=== PATIENT | male | born 1940 | race Caucasian/White ===

== ENCOUNTER → 2018-01-14 15:08 | Outpatient (CLI) | payer OTHER, SELFPAY ==
--- NOTE | 2018-01-14 15:18 | VDLE_ITS ---
Reason For Study: Edema RIGHT LEFT GSV is normal. GSV is normal. CFV is compressible, spontaneous, phasic, CFV is compressible, spontaneous, phasic, competent and demonstrates normal competent, and demonstrates normal augmentation. augmentation. FV is compressible, spontaneous, phasic, FV is compressible, spontaneous, phasic, competent and demonstrates normal competent and demonstrates normal augmentation. augmentation. POP V is compressible, spontaneous, phasic, POP V is compressible, spontaneous, phasic, competent and demonstrates normal competent and demonstrates normal augmentation. augmentation. T/P Trunk is compressible. T/P Trunk is compressible. PTV is compressible. PTV is compressible. RT PerV is compressible. LT PerV is compressible. Procedure Lt CFV and Lt Prox FV are partially Exam performed in department. compressible with bright intraluminal echoes A preliminary report was called and/or faxed consistent with chronic DVT to Dr. Jauregui. Lt GastrocV is dilated and non compressible consistent with acute DVT. Interpretation Summary Acute deep vein thrombosis is noted in the left gastrocnemius vein. Chronic venous changes are noted in the left common femoral vein and proximal left femoral vein, which are partially compressible and demonstrate bright intraluminal echogenicity. The remainder of the left lower extremity deep venous system is patent and compressible. Deep veins of the right lower extremity are patent and compressible segmentally. There is no evidence of right lower extremity deep vein thrombosis. Valvular competence appears intact within the proximal deep venous systems bilaterally. The greater saphenous veins appear bilaterally patent and compressible segmentally. Ordering Physician: Juliana Jauregui Referring Physician: Juliana Jauregui Performed By: Codi Turk, RDCS, RVT
== END ==
PROVIDERS: Family Provider Internal Medicine; PCP Internal Medicine; Visit Provider Internal Medicine
DX: R60.0 Localized edema (principal)
CPT/HCPCS: 93970

== ENCOUNTER → 2018-02-25 08:52 | Outpatient (CLI) | payer MEDICARE, SELFPAY ==
--- NOTE | 2018-02-25 09:16 | VDLE_ITS ---
Reason For Study: EDEMA, F/U DVT. RIGHT LEFT GSV is normal. GSV is normal. CFV is compressible, spontaneous, phasic, CFV is compressible, spontaneous, phasic, competent and demonstrates normal competent, and demonstrates normal augmentation. augmentation. FV is compressible, spontaneous, phasic, FV is compressible, spontaneous, phasic, competent and demonstrates normal competent and demonstrates normal augmentation. augmentation. POP V is compressible, spontaneous, phasic, POP V is compressible, spontaneous, phasic, competent and demonstrates normal competent and demonstrates normal augmentation. augmentation. T/P Trunk is compressible. T/P Trunk is compressible. PTV is compressible. PTV is compressible. RT PerV is compressible. LT PerV is compressible. Procedure Lt CFV and Lt Prox FV are partially Exam performed in department. compressible with bright intraluminal echoes The exam was diagnostic. consistent with chronic DVT. A preliminary report was called and/or faxed LT Gastrocnemius V is compressible; DVT to Dr. Jauregui @ [phone] @ 9:55 am. (01/14/18)appears resolved. Interpretation Summary Chronic venous changes are noted in the left common femoral vein and proximal left femoral vein, which are partially compressible and demonstrate bright intraluminal echogenicity. The remainder of the left lower extremity deep venous system is patent and compressible. Deep veins of the right lower extremity are patent and compressible segmentally. There is no evidence of right lower extremity deep vein thrombosis. Valvular competence appears intact within the proximal deep venous systems bilaterally. The greater saphenous veins appear bilaterally patent and compressible segmentally. It appears as though the acute deep vein thrombosis in the left gastrocnemius vein, noted in a prior study on 01/14/2018, has resolved. Ordering Physician: Juliana Jauregui Referring Physician: Juliana Jauregui Performed By: Joceline Bueno, GREER, RVT
== END ==
PROVIDERS: Family Provider Internal Medicine; PCP Internal Medicine; Visit Provider Internal Medicine
DX: R60.0 Localized edema (principal)
CPT/HCPCS: 93970

== ENCOUNTER → 2018-10-28 07:42 | Outpatient (CLI) | payer MEDICARE, SELFPAY ==
--- NOTE | 2018-10-28 07:46 | RDU_ITS ---
Reason For Study: HYPERTENSION Right Renal Artery Left Renal Artery Right renal artery ostium Left renal artery ostium 306.6/81.0 305.9/48.4 RSV/EDV. PSV/EDV. Right renal artery proximal Left renal artery proximal PSV/EDV 346.9/90.3 PSV/EDV. 361.7/102.8 . Right renal artery mid 101.7/28.2 Left renal artery mid 148.5/22.3 PSV/EDV. PSV/EDV . Right renal artery distal Left renal artery distal 133.2/12.6 118.9/24.6 PSV/EDV. PSV/EDV. Right RAR 5.1. Left RAR 5.3. Right Renal Parenchyma Left Renal Parenchyma Upper Pole Medula 44.0/10.2 Left upper pole medulla 24.5/7.3 PSV/EDV. PSV/EDV . Right upper pole medulla EDR .23 . Left upper pole medulla EDR .30 . Right upper pole medulla R.I. .77 . Left upper pole medulla R.I. .70 . Upper [place] Cortx 24.8/10.2 PSV/EDV. UP Cortex 19.6/5.5 PSV/EDV. Right upper pole cortex EDR .41 . Left upper pole cortex EDR .28 . Right upper pole cortex R.I. .59 . Left upper pole cortex R.I. .72 . Right lower Pole medulla 32.1/10.2 Left lower Pole medulla 21.4/7.9 PSV/EDV . PSV/EDV . Right lower pole medulla EDR .32 . Left lower pole medulla EDR .37 . Right lower pole medulla R.I. .68 . Left lower pole medulla R.I. .63 . Lower Pole Cortex 27.6/12.1 Lower Pole Cortx 29.4/9.8 PSV/EDV. PSV/EDV. Left lower pole cortex EDR .33 . Right lower pole cortex EDR .44 . Left lower pole cortex R.I. .67 . Right lower pole cortex R.I. .56 . Left Renal Hilar Right Renal Hilar LT Hilar avg 33.7/10.9 PSV/EDV . Right Hilar avg 48.5/16.7 PSV/EDV. Left hilar acceleration time 60 Right hilar acceleration time 50 m/sec. m/sec. Left Renal Dimensions Right Renal Dimensions Left kidney size 10.3 cm . Right kidney size 11.0 cm . Left cortical dimension 1.1 cm . Right cortical dimension 1.1 cm . Multiple cysts noted largest is 3.5 Multiple cysts noted largest is 2.4 x 3.2 cm. x 3.0 cm. Aorta Proximal abdominal aorta 2.1 X 2.0 cm . Distal abdominal aorta 1.3 X 1.3 cm . Proximal abdominal aorta peak systolic velocity is 68.5 cm/sec . Distal abdominal aorta peak systolic velocity is 86.0 cm/sec . Interpretation Summary Dimensions of the intra-abdominal aorta appear normal, without evidence of aneurysmal dilatation. Ostial and proximal renal artery systolic velocities are elevated bilaterally. Acceleration times are bilaterally normal. Renal-aortic ratios are elevated bilaterally. 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 Cortical dimensions are bilaterally normal. Kidneys appear normal in size bilaterally. Multiple cystic structures are noted in the kidneys bilaterally. Clinical correlation is advised. Ordering Physician: Juliana Jauregui Referring Physician: Juliana Jauregui Performed By: Evita Manuel RVT
== END ==
PROVIDERS: Family Provider Internal Medicine; PCP Internal Medicine; Referring Provider Internal Medicine; Visit Provider Internal Medicine
DX: I10 Essential (primary) hypertension (principal)
CPT/HCPCS: 93975

== ENCOUNTER 2018-10-31 14:54 | Inpatient (IN) | payer MEDICARE, SELFPAY ==
[2018-10-31] VITALS (12 sets, daily range): BP systolic 115–183; BP diastolic 54–83; PULSE 64–87; RESP 14–29; TEMP 36.7–36.9; O2SAT 96–100; BMI 25.3; BMI 25.4; BMI 25.5
--- NOTE | 2018-10-31 15:31 | ED.VISSUMM ---
- ER Visit Summary Date of Service: 10/31/18 Chief Complaint: [Black stool] History of Present Illness: The patient is a 78 M [presents the emergency department complaint of black stool that he noticed today. Patient has history of bleeding ulcers. Patient currently takes full dose aspirin but no other blood thinners. He denies any abdominal pain. He denies any vomiting. Patient states that he did spit up some phlegm earlier today that had some blood tinges in it. He denies any nosebleeds. Patient denies any fever. He denies taking any Pepto-Bismol. He denies recent illness otherwise. He denies cough or chest pain. Patient complains of some fatigue. He denies any exertional dyspnea.] Physical Examination: [HEENT-PERRLA, EOMI. Cranial nerves II through XII grossly intact. TMs clear. Mucous membranes moist. No adenopathy. Cardiovascular-regular rate and rhythm without murmur or ectopy Lungs-clear to auscultation, chest wall stable without crepitus or subcu emphysema Abdomen-normoactive bowel sounds, soft, nontender, no rebound or rigidity, no peritoneal signs. Rectal exam-no masses noted on exam. Stool is dark and greenish-black. Extremities-intact ?4, normal range of motion, normal pulses, atraumatic] Test Results: ['s CBC with differential obtained showed a white count of 8.6, hemoglobin 9.1, hematocrit 20.6, platelets 26.6. Chemistries unremarkable. BUN was 89 and creatinine 2.75. Hemoccult positive] Emergency Department Course and Treatment: [Patient was started on Protonix and was given normal saline. She case was discussed with Dr. Shine also with hospitalist will evaluate patient for admission.] Treatment Plan: [Admit] Disposition: Admit] Impression: [Upper GI bleed] This note was generated with [employer] dictation software. It may contain incorrect words, spelling, and punctuation that were not noted in review of the chart prior to signing ED Disposition - Plan for ED Patient: Referrals: Juliana Jauregui DO [Primary Care Provider] -
[2018-10-31] MEDS: 0.9% Normal Saline 1,000 ML 125 ML IV (15:34)
[2018-10-31 16:24] LABS: AST(SGOT) 9 U/L (15-37); Alanine Aminotransfer ALT/SGPT 13 U/L (16-61); Albumin, Serum 3.1 g/dL (3.2-5.0); Alkaline Phosphatase 38 U/L (45-117); Anion Gap 6 (5-15); BUN 89 mg/dL (7-18); BUN/Creat Ratio 32.4 RATIO (10-20); Calcium,Total 8.4 mg/dL (8.5-10.1); Chloride 111 mmol/L (98-107); Creatinine, Serum 2.75 mg/dL (0.70-1.30); EST Glomerular Filtration Rate 24 mL/min (>60); Est Glom Filt Rate - Afr Amer 29 mL/min (>60); Estimated Creatinine Clearance 23.52 ml/min; Globulin 3.2 g/dL (2.2-4.2); Glucose 101 mg/dL (74-106); Potassium 4.6 mmol/L (3.5-5.1); Protein, Total 6.3 g/dL (6.4-8.2); Sodium Level 141 mmol/L (136-145)
[2018-10-31 16:26] LABS: Absolute Lymphocyte Count 1.14 X10^3/ul (0.83-4.51); Absolute Neutrophil Count 6.5 X10^3/uL (2.0-7.7); Basophil# 0.07 X10^3/uL; Basophil% 0.8 % (0-1); Eosinophil# 0.13 X10^3/uL; Eosinophils% 1.5 % (0-5); Hematocrit 28.6 % (40-54); Hemoglobin 9.1 g/dl (13.0-16.5); Lymphocyte # 1.14 X10^3/ul (4.0); Lymphocyte % 13.3 % (19-41); Mean Corp Hgb Conc 31.8 g/gl (32-36); Mean Corpuscular Hgb 26.5 pg (27.0-32.0); Mean Corpuscular Volume 83.4 fL (80-94); Mean Platelet Vol. 10.4 fl (6.2-12.0); Monocyte# 0.69 X10^3/uL; Monocyte% 8.1 % (0-10); Neutrophil # 6.49 X10^3/uL (2.7-7.7); Neutrophil % 75.9 % (47-70); POSITIVE COUNT NO; POSITIVE DIFFERENTIAL NO; POSITIVE MORPHOLOGY NO; Platelet Count 266 K/mm3 (150-450); RBC Distribution Width CV 17.2 % (11.6-14.6); RBC Distribution Width SD 52.3 fl (35.1-43.9); Red Blood Count 3.43 M/mm3 (4.6-6.2); White Blood Count 8.6 K/mm3 (4.4-11.0)
--- NOTE | 2018-10-31 16:59 | NURSING ---
PCU GI BLEED BETH
--- NOTE | 2018-10-31 17:07 | PCM.HP.STD ---
<Kojo Marr - Last Filed: 10/31/18 17:07> Problem List (1) Upper GI bleed Status: Acute (2) Acute blood loss anemia Status: Acute (3) DVT (deep venous thrombosis) Status: Chronic (4) Presence of IVC filter Status: Chronic (5) CKD (chronic kidney disease), stage IV Status: Chronic (6) HTN (hypertension) Status: Chronic History of Present Illness Date of Admission: 10/31/18 Chief Complaint: Black tarry stools The patient is a 78 year old M with pmhx as above also with a hx of esophageal bleeding, bleeding ulcers unclear location, who presents to the ER with c/o new onset black tarry stools. He has had this in the past and required esophageal surgery - he was seen by Gastroenterology Dr. Rashid in [place] and was apparantly told he had severe disease, the pt is not sure exactly what. Last surgery was in 2014. He denies varices or liver disease. This time he started feeling nauseous and weak last night and could not sleep. He got up in the AM and had a bowel movement with a large quantity of blood that was black and tarry. He has not had recent blood in his stools prior to this recently. He reports feeling weak. No dizziness/LH, no SOB. He came to the ER and was found to be anemic with Hgb 9.1 with + Hemoccult. Dr. Aguilar was called and will see the pt for presumed upper GI bleed. He does take full strength aspirin. [] Past Medical History Past Medical History (Chronic Problems): Chronic Problems DVT (deep venous thrombosis) (Chronic) Presence of IVC filter (Chronic) CKD (chronic kidney disease), stage IV (Chronic) HTN (hypertension) (Chronic) Allergies No Known Allergies Allergy (Verified 10/31/18 14:55) Surgical History: total hip arthroplasty - BL, - - esophageal repair unclear specifics, IVC filter placement, Smoking Status: Former smoker Review of Systems Constitutional: Reports: Malaise, Weakness. Denies: Chills, Fever, Weight Change HEENT: Denies: Head Aches, Sinus Congestion, Sinus Drainage Cardiovascular: Denies: Chest Pain, Palpitations Respiratory: Denies: Cough, Shortness of breath at rest, Sputum production Gastrointestinal: Reports: Nausea, - - black tarry stools. Denies: Abdominal Pain, Vomiting Genitourinary: Denies: Dysuria Musculoskeletal: Denies: Joint Pain, Joint Tenderness Skin: Denies: Rash, Wounds Neurological: Denies: Numbness, Tingling, Focal weakness Psychiatric: Denies: Anxiety, Depression, Homicidal Ideations, Suicidal Ideations Hematologic/ Lymphatic: Denies: Easy Bruising, Easy Bleeding VTE Information - Inpt Only VTE Present on Admission: No VTE Mechan Device Prophylaxis: SCD's VTE Pharm Prophylaxis ordered?: No Reason prophylaxis not ordered:: Medical Contraindication Patient Problems: Active and Suspected Problems Upper GI bleed (Acute) Acute blood loss anemia (Acute) - Physical Exam General: Alert, Oriented x3, Cooperative HEENT: Atraumatic, PERRLA, EOMI, Normocephalic Neck: Supple, No JVD, Negative Carotid Bruits Lungs: Clear to auscultation, Normal air movement Cardiovascular: Regular rate, No murmurs Abdomen: Bowel Sounds Present, Soft, Non Tender Extremities: No edema, Capillary Refill Less than 3 Seconds Skin: No rashes, No breakdown Musculoskeletal: No Tenderness to Palpation of Joints or Extremities Neurological: Cranial nerves II-XII grossly intact Psych/Mental Status: Normal Affect, Appropriate Vital Signs Temp Pulse Resp BP Pulse Ox 98.1 F 66 17 145/77 H 97 10/31/18 14:58 10/31/18 14:58 10/31/18 14:58 10/31/18 14:58 10/31/18 14:58 Oxygen Delivery Method Room Air Weight: 187 lb Body Mass Index (BMI) 25.3 Microbiology Past 72 Hours 10/31/18 15:25 Stool Occult Blood (ROBBIN) - Final Stool Occult Blood Positive Laboratory Tests Past 24 Hrs 10/31/18 10/31/18 10/31/18 15:20 15:20 15:20 WBC 8.6 RBC 3.43 L Hgb 9.1 L Hct 28.6 L MCV 83.4 MCH 26.5 L MCHC 31.8 L RDW 17.2 H RDW Differential 52.3 H Plt Count 266 MPV 10.4 Immature Gran % (Auto) 0.400 Neut % (Auto) 75.9 H Lymph % (Auto) 13.3 L [place] % (Auto) 8.1 Eos % (Auto) 1.5 Baso % (Auto) 0.8 Absolute Neuts (auto) 6.5 Absolute Lymphs (auto) 1.14 Total Counted Not Reportable Sodium 141 Potassium 4.6 Chloride 111 H Carbon Dioxide 24.0 Anion Gap 6 BUN 89 H Creatinine 2.75 H Estim Creat Clear Calc 23.52 Est GFR (MDRD) Af Amer 29 L Est GFR (MDRD) Non-Af 24 L BUN/Creatinine Ratio 32.4 H Glucose 101 Calcium 8.4 L Total Bilirubin 0.30 AST 9 L ALT 13 L Alkaline Phosphatase 38 L Total Protein 6.3 L Albumin 3.1 L Globulin 3.2 Albumin/Globulin Ratio 1.0 Blood Type Pending Antibody Screen Pending Assessment/Plan All Active Problems Upper GI bleed (Acute) Acute blood loss anemia (Acute) 1. Acute blood loss anemia - presumed upper GI bleeding. Hx esophageal bleeding requiring surgery [address] Rashid in [place] (GI) - on full strength aspirin daily. Denies liver dz/varices. Has prior bleeding ulcers. Hgb 9.1. Black tarry stool this AM. NPO now. T/S. Serial H/H q6h. Protonix drip. LFTs normal. Obtain records from Dr. Jauregui/Rachid. -baseline Hgb unknown 2. Hx DVTs - IVC filter in place 3. CKDIV - Pt of Dr. Castillo. 4. HTN - hold orals 5. GERD - on ppi DVT ppx: SCDs This patient was seen by Kojo Marr PA-C under the supervision of Dr. Holm <Kings Holm - Last Filed: 10/31/18 17:55> Problem List (1) Upper GI bleed Status: Acute History of Present Illness The patient is a 78 year old M resents with 3 bouts of black tarry stools. The first 1 was larger than subsequent episodes. Patient had similar episode in 2015 that was attributed to an ulcer that may have been in his esophagus but the patient and disagree on its whereabouts. Patient received IV pantoprazole in the emergency room. Patient was seen by general surgery who is planning to do an EGD in the emergency room. [] Past Medical History Medical History: Medical History (Last Updated 10/31/18 @ 17:50 by Kings Holm DO) AAA (abdominal aortic aneurysm) I71.4 Orthostatic hypotension I95.1 PUD (peptic ulcer disease) K27.9 VTE (venous thromboembolism) I82.90 CKD (chronic kidney disease), stage IV N18.4 Allergies No Known Allergies Allergy (Verified 10/31/18 14:55) Surgical History: total hip arthroplasty, - Lives: Spouse/ Significant Other Smoking Status: Former smoker Tobacco Use: Non-smoker Alcohol: Rare Drugs: None - *Family History Maternal History Items: No pertinent history, - - no CAD Review of Systems Constitutional: Reports: Malaise, Weakness. Denies: Chills, Fever, Weight Change HEENT: Denies: Head Aches, Sinus Congestion, Sinus Drainage Cardiovascular: Denies: Chest Pain, Palpitations Respiratory: Denies: Cough, Shortness of breath at rest, Sputum production Gastrointestinal: Reports: Nausea, -. Denies: Abdominal Pain Genitourinary: Denies: Dysuria Musculoskeletal: Denies: Joint Pain, Joint Tenderness Skin: Denies: Rash, Wounds Neurological: Denies: Focal weakness, Numbness, Tingling Psychiatric: Denies: Anxiety, Depression, Homicidal Ideations, Suicidal Ideations Hematologic/ Lymphatic: Denies: Easy Bruising, Easy Bleeding VTE Information - Inpt Only VTE Present on Admission: No VTE Mechan Device Prophylaxis: SCD's VTE Pharm Prophylaxis ordered?: No Reason prophylaxis not ordered:: Medical Contraindication - Physical Exam General: Alert, Cooperative HEENT: Atraumatic, Normocephalic Neck: No Nodes, Thyroid Normal Size and Texture Lungs: Clear to auscultation, Normal air movement, No rhonchi, No wheeze Cardiovascular: Regular rate, Regular Rhythm, Normal S1, Normal S2, No murmurs Abdomen: Bowel Sounds Present, Soft, Non Tender, Non-Distended, No Hepato-splenomegaly Extremities: No edema, No Calf Tenderness Skin: No rashes, No breakdown Musculoskeletal: No Tenderness to Palpation of Joints or Extremities, No Muscle Wasting Neurological: Deep Tendon Reflexes 2+/4 and Symmetrical, - - no clonus Psych/Mental Status: Normal Affect, Appropriate Vital Signs Temp Pulse Resp BP Pulse Ox 36.7 C 66 17 145/77 H 97 10/31/18 14:58 10/31/18 14:58 10/31/18 14:58 10/31/18 14:58 10/31/18 14:58 Oxygen Delivery Method Room Air Weight: 84.822 kg Body Mass Index (BMI) 25.3 Microbiology Past 72 Hours 10/31/18 15:25 Stool Occult Blood (ROBBIN) - Final Stool Occult Blood Positive Laboratory Tests Past 24 Hrs 10/31/18 10/31/18 10/31/18 15:20 15:20 15:20 WBC 8.6 RBC 3.43 L Hgb 9.1 L Hct 28.6 L MCV 83.4 MCH 26.5 L MCHC 31.8 L RDW 17.2 H RDW Differential 52.3 H Plt Count 266 MPV 10.4 Immature Gran % (Auto) 0.400 Neut % (Auto) 75.9 H Lymph % (Auto) 13.3 L [place] % (Auto) 8.1 Eos % (Auto) 1.5 Baso % (Auto) 0.8 Absolute Neuts (auto) 6.5 Absolute Lymphs (auto) 1.14 Total Counted Not Reportable Sodium 141 Potassium 4.6 Chloride 111 H Carbon Dioxide 24.0 Anion Gap 6 BUN 89 H Creatinine 2.75 H Estim Creat Clear Calc 23.52 Est GFR (MDRD) Af Amer 29 L Est GFR (MDRD) Non-Af 24 L BUN/Creatinine Ratio 32.4 H Glucose 101 Lactic Acid Calcium 8.4 L Total Bilirubin 0.30 AST 9 L ALT 13 L Alkaline Phosphatase 38 L Total Protein 6.3 L Albumin 3.1 L Globulin 3.2 Albumin/Globulin Ratio 1.0 Blood Type O POSITIVE Antibody Screen NEGATIVE 10/31/18 17:18 WBC RBC Hgb Hct MCV MCH MCHC RDW RDW Differential Plt Count MPV Immature Gran % (Auto) Neut % (Auto) Lymph % (Auto) [place] % (Auto) Eos % (Auto) Baso % (Auto) Absolute Neuts (auto) Absolute Lymphs (auto) Total Counted Sodium Potassium Chloride Carbon Dioxide Anion Gap BUN Creatinine Estim Creat Clear Calc Est GFR (MDRD) Af Amer Est GFR (MDRD) Non-Af BUN/Creatinine Ratio Glucose Lactic Acid Pending Calcium Total Bilirubin AST ALT Alkaline Phosphatase Total Protein Albumin Globulin Albumin/Globulin Ratio Blood Type Antibody Screen Assessment/Plan Patient seen and examined independently. Data reviewed. I agree with the above note by the physician client services assistant. 1. Upper GI bleed: Suspect PUD given patient's history. Patient received 8 mg of IV pantoprazole in the emergency room. We will continue with 40 mg IV for now. EGD to be performed in the emergency room and then depending on the appearance of what may be bleeding, if it is noted in the EGD, patient will either be admitted to the hospital or transfer to a tertiary facility. Patient and his are preferring to stay in the [facility] system preferably [place]. I explained to him that may not be able to be transferred to [place] if that is necessary but would recommend either [facility] or [facility] for the network even though [facility] is not directly ability with . 2. Anemia: Unknown baseline. Type and crossed in the emergency room. No indication for transfusion at this time. Recheck H&H 6 hours after the initial check and then again in the morning. 3. Chronic kidney disease stage IV: Patient may be at his baseline. Avoid nephrotoxic agents. Monitor his creatinine. 4. History of VT E: Patient was on aspirin for this apparently. Patient does have an IVC filter that was never removed. Aspirin on hold given the upper GI bleed 5. VT E prophylaxis: High risk given patient's past history. Chemical prophylaxis contraindicated given the GI bleed and anemia. Mechanical prophylaxis with SCDs. Code Visit Inpatient E&M: 54126 Init Hosp L3
--- NOTE | 2018-10-31 17:44 | PCM.CONS.GEN ---
Problem List (1) Upper GI bleed Status: Acute Reason for Consult Date of Consultation: 10/31/18 Reason for Consultation: Upper GI bleed melena History of Present Illness: The patient is a 78 year old M presented with melena that started today. The patient has no abdominal pain. No nausea or vomiting. Patient reports that he had black tarry stools starting today. Patient reports that he has been eating normally. He says that he has had ulcers cauterized in his esophagus in the past as well as bleeding ulcers in the past. He is on aspirin for blood clots in his legs. He also has a history of open AAA repair. Past Medical History Past Medical History (Chronic Problems): Chronic Problems DVT (deep venous thrombosis) (Chronic) Presence of IVC filter (Chronic) CKD (chronic kidney disease), stage IV (Chronic) HTN (hypertension) (Chronic) Allergies No Known Allergies Allergy (Verified 10/31/18 14:55) Home Medications: Ambulatory Orders Medication Instructions Recorded Amlodipine Besylate 5 mg PO DAILY 10/31/18 Aspirin E.C. [Ecotrin] 325 mg PO DAILY@0800 10/31/18 Losartan/Hydrochlorothiazide 1 tab PO BID 10/31/18 [Losartan-Hctz 50-12.5 mg Tab] Metoprolol Succinate [Toprol Xl] 50 mg PO DAILY 10/31/18 Multivit-Min/FA/Lycopen/Lutein 1 tab PO DAILY 10/31/18 [Centrum Silver Men Tablet] Spiro-3S/Dha/Epa/Fish Oil/D3 1 each PO DAILY 10/31/18 [Spiro-3 + D Softgel] Surgical History: total hip arthroplasty - BL, - - esophageal repair unclear specifics, IVC filter placement, Smoking Status: Former smoker - *Family History Maternal History Items: No pertinent history Review of Systems Constitutional: Denies: Anorexia, Fever HEENT: Denies: Difficulty Swallowing Cardiovascular: Denies: Chest Pain Respiratory: Denies: Cough, Shortness of Breath Gastrointestinal: Reports: Melena. Denies: Abdominal Pain, Hematemesis, Hematochezia, Nausea, Vomiting Genitourinary: Denies: Dysuria Musculoskeletal: Denies: Joint Tenderness Skin: Denies: Dryness Neurological: Denies: Focal weakness Patient Problems: Active and Suspected Problems Upper GI bleed (Acute) Acute blood loss anemia (Acute) - Physical Exam General: Alert, Oriented x3, Cooperative HEENT: Atraumatic Neck: No JVD Lungs: Normal air movement Cardiovascular: Regular rate, Regular Rhythm Abdomen: Soft, Non Tender, Non-Distended Extremities: No edema Skin: No rashes Musculoskeletal: No Muscle Wasting Vital Signs Temp Pulse Resp BP Pulse Ox 98.1 F 66 17 145/77 H 97 10/31/18 14:58 10/31/18 14:58 10/31/18 14:58 10/31/18 14:58 10/31/18 14:58 Oxygen Delivery Method Room Air Weight: 187 lb Body Mass Index (BMI) 25.3 Microbiology Past 72 Hours 10/31/18 15:25 Stool Occult Blood (ROBBIN) - Final Stool Occult Blood Positive Laboratory Tests Past 24 Hrs 10/31/18 10/31/18 10/31/18 15:20 15:20 15:20 WBC 8.6 RBC 3.43 L Hgb 9.1 L Hct 28.6 L MCV 83.4 MCH 26.5 L MCHC 31.8 L RDW 17.2 H RDW Differential 52.3 H Plt Count 266 MPV 10.4 Immature Gran % (Auto) 0.400 Neut % (Auto) 75.9 H Lymph % (Auto) 13.3 L [place] % (Auto) 8.1 Eos % (Auto) 1.5 Baso % (Auto) 0.8 Absolute Neuts (auto) 6.5 Absolute Lymphs (auto) 1.14 Total Counted Not Reportable Sodium 141 Potassium 4.6 Chloride 111 H Carbon Dioxide 24.0 Anion Gap 6 BUN 89 H Creatinine 2.75 H Estim Creat Clear Calc 23.52 Est GFR (MDRD) Af Amer 29 L Est GFR (MDRD) Non-Af 24 L BUN/Creatinine Ratio 32.4 H Glucose 101 Lactic Acid Calcium 8.4 L Total Bilirubin 0.30 AST 9 L ALT 13 L Alkaline Phosphatase 38 L Total Protein 6.3 L Albumin 3.1 L Globulin 3.2 Albumin/Globulin Ratio 1.0 Blood Type O POSITIVE Antibody Screen NEGATIVE 10/31/18 17:18 WBC RBC Hgb Hct MCV MCH MCHC RDW RDW Differential Plt Count MPV Immature Gran % (Auto) Neut % (Auto) Lymph % (Auto) [place] % (Auto) Eos % (Auto) Baso % (Auto) Absolute Neuts (auto) Absolute Lymphs (auto) Total Counted Sodium Potassium Chloride Carbon Dioxide Anion Gap BUN Creatinine Estim Creat Clear Calc Est GFR (MDRD) Af Amer Est GFR (MDRD) Non-Af BUN/Creatinine Ratio Glucose Lactic Acid Pending Calcium Total Bilirubin AST ALT Alkaline Phosphatase Total Protein Albumin Globulin Albumin/Globulin Ratio Blood Type Antibody Screen Assessment/Plan All Active Problems Upper GI bleed (Acute) Acute blood loss anemia (Acute) 78-year-old male with melena 1. Patient is on full dose aspirin and has history of upper GI bleed in the past. He has a Elayne filter as well as history of open AAA repair. He is not on a PPI. I would like to scope him in the emergency room to make sure this is something that can be handled here at this hospital. I expect that he may be transferred if there is a bleeding which is uncontrollable and requires IR or GI specialties. 2. I explained endoscopy in detail to the patient. I explained the risks including but not limited to stroke or heart attack with anesthesia, perforation of the GI tract, bleeding, infection. I explained that any of these could necessitate further emergency surgery. The patient understands and all questions were answered sufficiently. The patient wishes to proceed with procedure. Dudley Aguilar MD Pager: [facility] [address] [place] [address], [address] [place] [address] Office:
--- NOTE | 2018-10-31 17:48 | CON.PCM_ITS ---
Problem List (1) Upper GI bleed Status: Acute Reason for Consult Date of Consultation: 10/31/18 Reason for Consultation: Upper GI bleed melena History of Present Illness: The patient is a 78 year old M presented with melena that started today. The patient has no abdominal pain. No nausea or vomiting. Patient reports that he had black tarry stools starting today. Patient reports that he has been eating normally. He says that he has had ulcers cauterized in his esophagus in the past as well as bleeding ulcers in the past. He is on aspirin for blood clots in his legs. He also has a history of open AAA repair. Past Medical History Past Medical History (Chronic Problems): Chronic Problems DVT (deep venous thrombosis) (Chronic) Presence of IVC filter (Chronic) CKD (chronic kidney disease), stage IV (Chronic) HTN (hypertension) (Chronic) Allergies No Known Allergies Allergy (Verified 10/31/18 14:55) Home Medications: Ambulatory Orders Medication Instructions Recorded Amlodipine Besylate 5 mg PO DAILY 10/31/18 Aspirin E.C. [Ecotrin] 325 mg PO DAILY@0800 10/31/18 Losartan/Hydrochlorothiazide 1 tab PO BID 10/31/18 [Losartan-Hctz 50-12.5 mg Tab] Metoprolol Succinate [Toprol Xl] 50 mg PO DAILY 10/31/18 Multivit-Min/FA/Lycopen/Lutein 1 tab PO DAILY 10/31/18 [Centrum Silver Men Tablet] Berkley-3S/Dha/Epa/Fish Oil/D3 1 each PO DAILY 10/31/18 [[place]erkley-3 + D Softgel] Surgical History: total hip arthroplasty - BL, - - esophageal repair unclear specifics, IVC filter placement, Smoking Status: Former smoker - *Family History Maternal History Items: No pertinent history Review of Systems Constitutional: Denies: Anorexia, Fever HEENT: Denies: Difficulty Swallowing Cardiovascular: Denies: Chest Pain Respiratory: Denies: Cough, Shortness of Breath Gastrointestinal: Reports: Melena. Denies: Abdominal Pain, Hematemesis, Hematochezia, Nausea, Vomiting Genitourinary: Denies: Dysuria Musculoskeletal: Denies: Joint Tenderness Skin: Denies: Dryness Neurological: Denies: Focal weakness Patient Problems: Active and Suspected Problems Upper GI bleed (Acute) Acute blood loss anemia (Acute) - Physical Exam General: Alert, Oriented x3, Cooperative HEENT: Atraumatic Neck: No JVD Lungs: Normal air movement Cardiovascular: Regular rate, Regular Rhythm Abdomen: Soft, Non Tender, Non-Distended Extremities: No edema Skin: No rashes Musculoskeletal: No Muscle Wasting Vital Signs Temp Pulse Resp BP Pulse Ox 98.1 F 66 17 145/77 H 97 10/31/18 14:58 10/31/18 14:58 10/31/18 14:58 10/31/18 14:58 10/31/18 14:58 Oxygen Delivery Method Room Air Weight: 187 lb Body Mass Index (BMI) 25.3 Microbiology Past 72 Hours 10/31/18 15:25 Stool Occult Blood (ROBBIN) - Final Stool Occult Blood Positive Laboratory Tests Past 24 Hrs 10/31/18 10/31/18 10/31/18 15:20 15:20 15:20 WBC 8.6 RBC 3.43 L Hgb 9.1 L Hct 28.6 L MCV 83.4 MCH 26.5 L MCHC 31.8 L RDW 17.2 H RDW Differential 52.3 H Plt Count 266 MPV 10.4 Immature Gran % (Auto) 0.400 Neut % (Auto) 75.9 H Lymph % (Auto) 13.3 L [place] % (Auto) 8.1 Eos % (Auto) 1.5 Baso % (Auto) 0.8 Absolute Neuts (auto) 6.5 Absolute Lymphs (auto) 1.14 Total Counted Not Reportable Sodium 141 Potassium 4.6 Chloride 111 H Carbon Dioxide 24.0 Anion Gap 6 BUN 89 H Creatinine 2.75 H Estim Creat Clear Calc 23.52 Est GFR (MDRD) Af Amer 29 L Est GFR (MDRD) Non-Af 24 L BUN/Creatinine Ratio 32.4 H Glucose 101 Lactic Acid Calcium 8.4 L Total Bilirubin 0.30 AST 9 L ALT 13 L Alkaline Phosphatase 38 L Total Protein 6.3 L Albumin 3.1 L Globulin 3.2 Albumin/Globulin Ratio 1.0 Blood Type O POSITIVE Antibody Screen NEGATIVE 10/31/18 17:18 WBC RBC Hgb Hct MCV MCH MCHC RDW RDW Differential Plt Count MPV Immature Gran % (Auto) Neut % (Auto) Lymph % (Auto) [place] % (Auto) Eos % (Auto) Baso % (Auto) Absolute Neuts (auto) Absolute Lymphs (auto) Total Counted Sodium Potassium Chloride Carbon Dioxide Anion Gap BUN Creatinine Estim Creat Clear Calc Est GFR (MDRD) Af Amer Est GFR (MDRD) Non-Af BUN/Creatinine Ratio Glucose Lactic Acid Pending Calcium Total Bilirubin AST ALT Alkaline Phosphatase Total Protein Albumin Globulin Albumin/Globulin Ratio Blood Type Antibody Screen Assessment/Plan All Active Problems Upper GI bleed (Acute) Acute blood loss anemia (Acute) 78-year-old male with melena 1. Patient is on full dose aspirin and has history of upper GI bleed in the past. He has a Elayne filter as well as history of open AAA repair. He is not on a PPI. I would like to scope him in the emergency room to make sure this is something that can be handled here at this hospital. I expect that he may be transferred if there is a bleeding which is uncontrollable and requires IR or GI specialties. 2. I explained endoscopy in detail to the patient. I explained the risks including but not limited to stroke or heart attack with anesthesia, perforation of the GI tract, bleeding, infection. I explained that any of these could necessitate further emergency surgery. The patient understands and all questions were answered sufficiently. The patient wishes to proceed with procedure. Dudley Aguilar MD Pager: [facility] [address] [place] [address], [address] [place] [address] Office:
--- NOTE | 2018-10-31 17:58 | NURSING ---
ENDO WILL BE UP SOON
[2018-10-31 18:02] LABS: Lactic Acid 0.9 mmol/L (0.4-2.0)
[2018-10-31] MEDS: Propofol 200 MG/20 ML Vial IV BOLUS (18:29)
--- NOTE | 2018-10-31 19:05 | OP.ENDO_ITS ---
10/31/2018 Juliana Jauregui [address] [place] [address] Re : Upper GI endoscopy procedure for Juan Luis Pierson Dear Dr. Jauregui This procedure was performed on Wednesday, October 31, 2018. My impressions and recommendations are as follows: Impressions : - Non-bleeding gastric ulcers with no stigmata of bleeding. - No specimens collected. Recommendations : - Observe patient in same day observation unit. - Resume previous diet. - Continue present medications. My findings are described in the full procedure note, which is enclosed. If I can be of further assistance, please feel free to contact me at Doctor phone number(s): , Work: . Sincerely, Dudley Aguilar MD 10/31/2018 7:04:46 PM This report has been signed electronically.
--- NOTE | 2018-10-31 19:06 | PCM.PN.BLA ---
Progress Note I performed an EGD on the patient. He had no blood clots or stigmata of bleeding in the esophagus, stomach, duodenum. Patient did have 2 shallow ulcers in the antrum of the stomach which were nonbleeding and there were no clots. Recommend the patient have regular diet and recheck hemoglobin and start the patient on a PPI and Carafate. Dudley Aguilar MD Pager: [facility] [address] [place] [address] [address] [place] [address] Office:
[2018-10-31] MEDS: Sucralfate 1 GM Tablet PO (21:30)
[2018-10-31 21:41] LABS: Absolute Lymphocyte Count 1.35 X10^3/ul (0.83-4.51); Absolute Neutrophil Count 5.6 X10^3/uL (2.0-7.7); Basophil# 0.06 X10^3/uL; Basophil% 0.8 % (0-1); Eosinophils% 1.3 % (0-5); Hematocrit 25.5 % (40-54); Hemoglobin 8.2 g/dl (13.0-16.5); Lymphocyte # 1.35 X10^3/ul (4.0); Lymphocyte % 17.4 % (19-41); Mean Corp Hgb Conc 32.2 g/gl (32-36); Mean Corpuscular Hgb 26.6 pg (27.0-32.0); Mean Corpuscular Volume 82.8 fL (80-94); Mean Platelet Vol. 10.2 fl (6.2-12.0); Monocyte# 0.65 X10^3/uL; Monocyte% 8.4 % (0-10); Neutrophil # 5.61 X10^3/uL (2.7-7.7); Platelet Count 210 K/mm3 (150-450); RBC Distribution Width CV 17.2 % (11.6-14.6); RBC Distribution Width SD 52.5 fl (35.1-43.9); Red Blood Count 3.08 M/mm3 (4.6-6.2); White Blood Count 7.8 K/mm3 (4.4-11.0)
[2018-10-31 21:43] LABS: POSITIVE COUNT NO; POSITIVE DIFFERENTIAL NO; POSITIVE MORPHOLOGY NO
[2018-11-01] VITALS (20 sets, daily range): BP systolic 132–159; BP diastolic 59–91; PULSE 63–83; RESP 14–18; TEMP 36.6–37; O2SAT 95–98
[2018-11-01] MEDS: 0.9% Normal Saline 1,000 ML 125 ML IV ×3 (02:10→21:48)
[2018-11-01] MEDS: Sucralfate 1 GM Tablet PO (06:08)
[2018-11-01 06:09] LABS: Absolute Lymphocyte Count 1.33 X10^3/ul (0.83-4.51); Absolute Neutrophil Count 3.9 X10^3/uL (2.0-7.7); Basophil# 0.05 X10^3/uL; Basophil% 0.8 % (0-1); Eosinophil# 0.31 X10^3/uL; Hematocrit 25.3 % (40-54); Hemoglobin 7.9 g/dl (13.0-16.5); Lymphocyte # 1.33 X10^3/ul (4.0); Lymphocyte % 21.6 % (19-41); Mean Corp Hgb Conc 31.2 g/gl (32-36); Mean Corpuscular Hgb 26.3 pg (27.0-32.0); Mean Corpuscular Volume 84.3 fL (80-94); Mean Platelet Vol. 10.7 fl (6.2-12.0); Monocyte# 0.57 X10^3/uL; Monocyte% 9.3 % (0-10); Neutrophil # 3.88 X10^3/uL (2.7-7.7); Platelet Count 198 K/mm3 (150-450); RBC Distribution Width CV 17.2 % (11.6-14.6); RBC Distribution Width SD 50.3 fl (35.1-43.9); White Blood Count 6.2 K/mm3 (4.4-11.0)
[2018-11-01 06:19] LABS: BUN 73 mg/dL (7-18); Creatinine, Serum 2.46 mg/dL (0.70-1.30); Estimated Creatinine Clearance 26.29 ml/min; Glucose 90 mg/dL (74-106)
[2018-11-01 06:20] LABS: Anion Gap 7 (5-15); BUN/Creat Ratio 29.7 RATIO (10-20); Calcium,Total 7.9 mg/dL (8.5-10.1); Chloride 120 mmol/L (98-107); EST Glomerular Filtration Rate 27 mL/min (>60); Est Glom Filt Rate - Afr Amer 33 mL/min (>60); POSITIVE COUNT NO; POSITIVE DIFFERENTIAL NO; POSITIVE MORPHOLOGY NO; Potassium 4.1 mmol/L (3.5-5.1); Sodium Level 146 mmol/L (136-145)
--- NOTE | 2018-11-01 07:52 | PCM.PN.SRG ---
Patient Problems: Active and Suspected Problems (Last Updated 10/31/18 @ 17:50 by Kings Holm DO) Upper GI bleed (Acute) Acute blood loss anemia (Acute) Subjective: Patient reports no more bowel movements overnight. He has no abdominal pain. No nausea or vomiting. - Physical Exam General: Alert, Oriented x3, No apparent distress Neck: No JVD Lungs: Clear to auscultation, Normal air movement Cardiovascular: Regular rate, Regular Rhythm Abdomen: Soft, Non Tender, Non-Distended Vital Signs Temp Pulse Resp BP Pulse Ox 97.9 F 73 16 146/68 H 98 11/01/18 06:06 11/01/18 06:06 11/01/18 06:06 11/01/18 06:06 11/01/18 06:06 Oxygen Flow Rate (L/min) [3] 4 Oxygen Flow Rate (L/min) [2] 4 Oxygen Flow Rate (L/min) [1 ( 4 Initial Baseline)] Oxygen Flow Rate (L/min) 2 Oxygen Delivery Method [4] Nasal Cannula Oxygen Delivery Method [3] Nasal Cannula Oxygen Delivery Method [2] Nasal Cannula Oxygen Delivery Method [1 ( Nasal Cannula Initial Baseline)] Oxygen Delivery Method Room Air Weight: 188 lb 7.924 oz Body Mass Index (BMI) 25.5 Intake and Output for Last 24 Hours 10/30/18 10/31/18 11/01/18 23:59 23:59 23:59 Intake Total 750 / 750 984 / 984 Output Total 475 / 475 775 / 775 Balance 275 / 275 209 / 209 Microbiology Past 72 Hours 10/31/18 15:25 Stool Occult Blood (ROBBIN) - Final Stool Occult Blood Positive Laboratory Tests Past 24 Hrs 10/31/18 10/31/18 10/31/18 15:20 15:20 15:20 WBC 8.6 RBC 3.43 L Hgb 9.1 L Hct 28.6 L MCV 83.4 MCH 26.5 L MCHC 31.8 L RDW 17.2 H RDW Differential 52.3 H Plt Count 266 MPV 10.4 Immature Gran % (Auto) 0.400 Neut % (Auto) 75.9 H Lymph % (Auto) 13.3 L [place] % (Auto) 8.1 Eos % (Auto) 1.5 Baso % (Auto) 0.8 Absolute Neuts (auto) 6.5 Absolute Lymphs (auto) 1.14 Total Counted Not Reportable Sodium 141 Potassium 4.6 Chloride 111 H Carbon Dioxide 24.0 Anion Gap 6 BUN 89 H Creatinine 2.75 H Estim Creat Clear Calc 23.52 Est GFR (MDRD) Af Amer 29 L Est GFR (MDRD) Non-Af 24 L BUN/Creatinine Ratio 32.4 H Glucose 101 Lactic Acid Calcium 8.4 L Magnesium Total Bilirubin 0.30 AST 9 L ALT 13 L Alkaline Phosphatase 38 L Total Protein 6.3 L Albumin 3.1 L Globulin 3.2 Albumin/Globulin Ratio 1.0 Blood Type O POSITIVE Antibody Screen NEGATIVE 10/31/18 10/31/18 10/31/18 15:20 17:18 21:28 WBC 7.8 RBC 3.08 L Hgb 8.2 L Hct 25.5 L MCV 82.8 MCH 26.6 L MCHC 32.2 RDW 17.2 H RDW Differential 52.5 H Plt Count 210 MPV 10.2 Immature Gran % (Auto) 0.100 Neut % (Auto) 72.0 H Lymph % (Auto) 17.4 L [place] % (Auto) 8.4 Eos % (Auto) 1.3 Baso % (Auto) 0.8 Absolute Neuts (auto) 5.6 Absolute Lymphs (auto) 1.35 Total Counted Not Reportable Sodium Potassium Chloride Carbon Dioxide Anion Gap BUN Creatinine Estim Creat Clear Calc Est GFR (MDRD) Af Amer Est GFR (MDRD) Non-Af BUN/Creatinine Ratio Glucose Lactic Acid 0.9 Calcium Magnesium 2.0 Total Bilirubin AST ALT Alkaline Phosphatase Total Protein Albumin Globulin Albumin/Globulin Ratio Blood Type Antibody Screen 11/01/18 11/01/18 05:43 05:43 WBC 6.2 RBC 3.00 L Hgb 7.9 L Hct 25.3 L MCV 84.3 MCH 26.3 L MCHC 31.2 L RDW 17.2 H RDW Differential 50.3 H Plt Count 198 MPV 10.7 Immature Gran % (Auto) 0.300 Neut % (Auto) 63.0 Lymph % (Auto) 21.6 [place] % (Auto) 9.3 Eos % (Auto) 5.0 Baso % (Auto) 0.8 Absolute Neuts (auto) 3.9 Absolute Lymphs (auto) 1.33 Total Counted Not Reportable Sodium 146 H Potassium 4.1 Chloride 120 H Carbon Dioxide 19.0 L Anion Gap 7 BUN 73 H Creatinine 2.46 H Estim Creat Clear Calc 26.29 Est GFR (MDRD) Af Amer 33 L Est GFR (MDRD) Non-Af 27 L BUN/Creatinine Ratio 29.7 H Glucose 90 Lactic Acid Calcium 7.9 L Magnesium Total Bilirubin AST ALT Alkaline Phosphatase Total Protein Albumin Globulin Albumin/Globulin Ratio Blood Type Antibody Screen Medical Necessity - Tobacco Use Smoking Status: Former smoker Tobacco Use: Non-smoker Assessment/Plan All Active Problems (Last Updated 10/31/18 @ 17:50 by Kings Holm DO) Upper GI bleed (Acute) Acute blood loss anemia (Acute) 78-year-old male with melena 1. Patient had EGD yesterday evening which showed no blood in his stomach or duodenum. He had 2 small shallow ulcers in the antrum. I have started him on a PPI and Carafate. From my standpoint is okay to have a diet. His hemoglobin is downtrending but I believe this may be dilutional. He has not had a bowel movement yet today. He has no abdominal pain. If he continues to have bloody bowel movements and his hemoglobin continues to down trend I can perform a colonoscopy for him. Dudley Aguilar MD Pager: [facility] [address] [place] [address], [address] [place] [address] Office:
[2018-11-01] MEDS: Multivitamins,Ther W-Minerals Tablet 1 TABLET PO (09:41)
[2018-11-01] MEDS: Losartan Potassium 50 MG Tablet PO ×2 (09:42→21:48)
[2018-11-01] MEDS: hydroCHLOROthiazide 12.5mg 12.5 MG PO ×2 (09:42→21:48)
[2018-11-01] MEDS: Omega-3 Acid Ethyl Esters 1 GM Capsule PO (09:43)
[2018-11-01] MEDS: Metoprolol(XL)Succ 50 MG Tablet PO (09:43)
[2018-11-01] MEDS: amLODIPine 5 MG Tablet PO (09:44)
--- NOTE | 2018-11-01 10:13 | EKG12_ITS ---
Test Reason : ROUTINE Blood Pressure : / mmHG Vent. Rate : 065 BPM Atrial Rate : 065 BPM P-R Int : 202 ms QRS Dur : 086 ms QT Int : 386 ms P-R-T Axes : 039 -18 -07 degrees QTc Int : 401 ms Normal sinus rhythm Left ventricular hypertrophy Nonspecific ST-Segment Abnormality Abnormal ECG Confirmed by FIFI BLISS, KENDY ([id number]), society editor DREA BARRY ([id number]) on 11/02/2018 1:27:21 PM Referred By: Kings Holm Confirmed By:KENDY CALIX MD
--- NOTE | 2018-11-01 10:13 | ECHOD_ITS ---
Reason For Study: Arrhythmia Procedure This was a 2D Doppler, Color Flow transthoracic echocardiogram. The study was technically difficult. Exam performed portable in patient room. Left Ventricle Normal LV size. Mild concentric left ventricular hypertrophy. Left ventricular systolic function is normal. The estimated ejection fraction is 65 %. Diastolic function is indeterminate. No regional wall motion abnormalities noted. Right Ventricle Normal RV size. Normal systolic function. Atria The left atrium is mildly enlarged. Normal right atrium. No doppler evidence for ASD. Mitral Valve There is no mitral annular calcification. Anterior leaflet diffuse mitral valve thickening. Mild (1+) mitral valve insufficiency. Tricuspid Valve Normal tricuspid valve. Trivial tricuspid valve insufficiency. Unable to estimate RV systolic pressure/pulmonary artery pressure due to technically difficult study. Aortic Valve Trisinus/trileaflet aortic valve. Normal aortic valve. Trivial aortic valve insufficiency. Pulmonic Valve The pulmonic valve is not well visualized. Trivial pulmonic valve insufficiency. Great Vessels Normal sized aortic root. Pericardium/Pleural No pericardial effusion. MMode/2D Measurements & Calculations LVIDd: 4.7 cm IVSd: 1.3 cm Ao root diam: 3.6 cm LVIDs: 3.1 cm LVPWd: 1.4 cm LA dimension: 4.4 cm FS: 35.4 % LAV(MOD-bp): 87.0 ml LA A4 area: 28.8 cm2 LAV(MOD-bp) Indexed: 41.9 ml/m2 LAV(MOD-sp2): 76.4 ml LAV(MOD-sp4): 97.6 ml Time Measurements MV dec time: 0.33 sec Doppler Measurements & Calculations MV E max tony: 67.2 cm/sec Lat Peak E' Tony: 5.7 cm/sec Med Peak E' Tony: 5.4 cm/sec MV A max tony: 118.6 cm/sec E/E' lat: 11.7 E/E' med: 12.5 MV E/A: 0.57 MV V2 max: 133.8 cm/sec MV P1/2t max tony: 76.0 cm/sec Ao V2 max: 152.7 cm/sec MV max P.2 mmHg MV P1/2t: 115.5 msec Ao max P.3 mmHg MV V2 mean: 64.5 cm/sec MV dec slope: 192.6 cm/sec2 Ao V2 mean: 87.0 cm/sec MV mean P.1 mmHg MVA(P1/2t): 1.9 cm2 Ao mean P.8 mmHg MV V2 VTI: 33.4 cm Ao V2 VTI: 29.3 cm AI max tony: 438.7 cm/sec LV V1 max: 101.0 cm/sec PA V2 max: 108.1 cm/sec AI max P.0 mmHg LV V1 max P.1 mmHg LV V1 mean P.8 mmHg AI dec slope: 409.7 cm/sec2 LV V1 mean: 61.2 cm/sec AI P1/2t: 313.7 msec LV V1 VTI: 23.6 cm Interpretation Summary The study was technically difficult. Left ventricular systolic function is normal. The estimated ejection fraction is 65 %. Mild concentric left ventricular hypertrophy. The left atrium is mildly enlarged. Anterior leaflet diffuse mitral valve thickening. Mild (1+) mitral valve insufficiency. Trivial tricuspid valve insufficiency. Trivial aortic valve insufficiency. Trivial pulmonic valve insufficiency. Unable to estimate RV systolic pressure/pulmonary artery pressure due to technically difficult study. Diastolic function is indeterminate. Ordering Physician: Kojo Marr Referring Physician: Kings Holm Performed By: Raul Gutierres RCS
--- NOTE | 2018-11-01 13:34 | PN_ITS ---
Addendum entered and electronically signed by REZA Garza 11/01/18 14:50: Code Visit Addendum: Likely stress test in AM. Add to problem list -Hx Aortic aneurysm repair -Recent arterial study showing Renal artery stenosis, available in EMR Original Note: <Kojo Marr - Last Filed: 11/01/18 14:49> Patient Problems: Active and Suspected Problems (Last Updated 10/31/18 @ 17:50 by Kings Holm DO) Upper GI bleed (Acute) Acute blood loss anemia (Acute) Subjective: Resting comfortably in bed. Today, eating breakfast no issues. Did later have black stool. No LH or dizziness at rest or with ambulation. No nausea vomiting. He had an episode of 28 beats of Vtach last night. No palp. No CP. Pt has no hx of cardiac dz, takes metoprolol for HTN. Did miss one dose yesterday AM. - Physical Exam General: Alert, Oriented x3, Cooperative HEENT: Atraumatic, PERRLA, EOMI, Normocephalic Neck: Supple, No JVD, Negative Carotid Bruits Lungs: Clear to auscultation, Normal air movement Cardiovascular: Regular rate, No murmurs Abdomen: Bowel Sounds Present, Soft, Non Tender Extremities: No edema, Capillary Refill Less than 3 Seconds Skin: No rashes, No breakdown Musculoskeletal: No Tenderness to Palpation of Joints or Extremities Neurological: Cranial nerves II-XII grossly intact Psych/Mental Status: Normal Affect, Appropriate, Alert and oriented to time, place, person, mood and affect Vital Signs Temp Pulse Resp BP Pulse Ox 98.1 F 78 18 132/72 H 98 11/01/18 09:31 11/01/18 09:43 11/01/18 09:31 11/01/18 09:31 11/01/18 09:31 Oxygen Flow Rate (L/min) [3] 4 Oxygen Flow Rate (L/min) [2] 4 Oxygen Flow Rate (L/min) [1 ( 4 Initial Baseline)] Oxygen Flow Rate (L/min) 2 Oxygen Delivery Method [4] Nasal Cannula Oxygen Delivery Method [3] Nasal Cannula Oxygen Delivery Method [2] Nasal Cannula Oxygen Delivery Method [1 ( Nasal Cannula Initial Baseline)] Oxygen Delivery Method Room Air Weight: 188 lb 7.924 oz Body Mass Index (BMI) 25.5 Intake and Output for Last 24 Hours 10/30/18 10/31/18 11/01/18 23:59 23:59 23:59 Intake Total 750 / 750 2447 / 2447 Output Total 475 / 475 775 / 775 Balance 275 / 275 1672 / 1672 Microbiology Past 72 Hours 10/31/18 15:25 Stool Occult Blood (ROBBIN) - Final Stool Occult Blood Positive Laboratory Tests Past 24 Hrs 10/31/18 10/31/18 10/31/18 15:20 15:20 15:20 WBC 8.6 RBC 3.43 L Hgb 9.1 L Hct 28.6 L MCV 83.4 MCH 26.5 L MCHC 31.8 L RDW 17.2 H RDW Differential 52.3 H Plt Count 266 MPV 10.4 Immature Gran % (Auto) 0.400 Neut % (Auto) 75.9 H Lymph % (Auto) 13.3 L [place] % (Auto) 8.1 Eos % (Auto) 1.5 Baso % (Auto) 0.8 Absolute Neuts (auto) 6.5 Absolute Lymphs (auto) 1.14 Total Counted Not Reportable Sodium 141 Potassium 4.6 Chloride 111 H Carbon Dioxide 24.0 Anion Gap 6 BUN 89 H Creatinine 2.75 H Estim Creat Clear Calc 23.52 Est GFR (MDRD) Af Amer 29 L Est GFR (MDRD) Non-Af 24 L BUN/Creatinine Ratio 32.4 H Glucose 101 Lactic Acid Calcium 8.4 L Magnesium Total Bilirubin 0.30 AST 9 L ALT 13 L Alkaline Phosphatase 38 L Total Protein 6.3 L Albumin 3.1 L Globulin 3.2 Albumin/Globulin Ratio 1.0 Blood Type O POSITIVE Antibody Screen NEGATIVE Crossmatch 10/31/18 10/31/18 10/31/18 15:20 15:20 17:18 WBC RBC Hgb Hct MCV MCH MCHC RDW RDW Differential Plt Count MPV Immature Gran % (Auto) Neut % (Auto) Lymph % (Auto) [place] % (Auto) Eos % (Auto) Baso % (Auto) Absolute Neuts (auto) Absolute Lymphs (auto) Total Counted Sodium Potassium Chloride Carbon Dioxide Anion Gap BUN Creatinine Estim Creat Clear Calc Est GFR (MDRD) Af Amer Est GFR (MDRD) Non-Af BUN/Creatinine Ratio Glucose Lactic Acid 0.9 Calcium Magnesium 2.0 Total Bilirubin AST ALT Alkaline Phosphatase Total Protein Albumin Globulin Albumin/Globulin Ratio Blood Type Antibody Screen Crossmatch See Detail 10/31/18 11/01/18 11/01/18 21:28 05:43 05:43 WBC 7.8 6.2 RBC 3.08 L 3.00 L Hgb 8.2 L 7.9 L Hct 25.5 L 25.3 L MCV 82.8 84.3 MCH 26.6 L 26.3 L MCHC 32.2 31.2 L RDW 17.2 H 17.2 H RDW Differential 52.5 H 50.3 H Plt Count 210 198 MPV 10.2 10.7 Immature Gran % (Auto) 0.100 0.300 Neut % (Auto) 72.0 H 63.0 Lymph % (Auto) 17.4 L 21.6 [place] % (Auto) 8.4 9.3 Eos % (Auto) 1.3 5.0 Baso % (Auto) 0.8 0.8 Absolute Neuts (auto) 5.6 3.9 Absolute Lymphs (auto) 1.35 1.33 Total Counted Not Reportable Not Reportable Sodium 146 H Potassium 4.1 Chloride 120 H Carbon Dioxide 19.0 L Anion Gap 7 BUN 73 H Creatinine 2.46 H Estim Creat Clear Calc 26.29 Est GFR (MDRD) Af Amer 33 L Est GFR (MDRD) Non-Af 27 L BUN/Creatinine Ratio 29.7 H Glucose 90 Lactic Acid Calcium 7.9 L Magnesium Total Bilirubin AST ALT Alkaline Phosphatase Total Protein Albumin Globulin Albumin/Globulin Ratio Blood Type Antibody Screen Crossmatch 11/01/18 05:43 WBC RBC Hgb Hct MCV MCH MCHC RDW RDW Differential Plt Count MPV Immature Gran % (Auto) Neut % (Auto) Lymph % (Auto) [place] % (Auto) Eos % (Auto) Baso % (Auto) Absolute Neuts (auto) Absolute Lymphs (auto) Total Counted Sodium Potassium Chloride Carbon Dioxide Anion Gap BUN Creatinine Estim Creat Clear Calc Est GFR (MDRD) Af Amer Est GFR (MDRD) Non-Af BUN/Creatinine Ratio Glucose Lactic Acid Calcium Magnesium 2.0 Total Bilirubin AST ALT Alkaline Phosphatase Total Protein Albumin Globulin Albumin/Globulin Ratio Blood Type Antibody Screen Crossmatch Medical Necessity - Tobacco Use Smoking Status: Former smoker Tobacco Use: Non-smoker Assessment/Plan All Active Problems (Last Updated 10/31/18 @ 17:50 by Kings Holm DO) Upper GI bleed (Acute) Acute blood loss anemia (Acute) 1. Acute blood loss anemia - 2/2 upper GI bleeding. Hx erosive esophagitis per notes from Dr. Rashid. Protonix BID + Carafate. EGD done by Dr. Aguilar - nonbleeding ulcers noted. 2. Vtach x1 - restart BB. Consult Cardiology. Asymptomatic. No hx arrhytmias. Obtain echo. Obtain 12 lead. 3. Hx DVTs - IVC filter in place 4. CKDIV - Pt of Dr. Castillo. 5. HTN - hold orals 6. GERD - on ppi DVT ppx: SCDs This patient was seen by Kojo Marr PA-C under the supervision of Dr. Dockery <Talya Dockery - Last Filed: 11/01/18 15:53> - Physical Exam Vital Signs Temp Pulse Resp BP Pulse Ox 98.4 F 67 17 152/64 H 97 11/01/18 15:30 11/01/18 15:30 11/01/18 15:30 11/01/18 15:30 11/01/18 15:30 Oxygen Flow Rate (L/min) [3] 4 Oxygen Flow Rate (L/min) [2] 4 Oxygen Flow Rate (L/min) [1 ( 4 Initial Baseline)] Oxygen Flow Rate (L/min) 2 Oxygen Delivery Method [4] Nasal Cannula Oxygen Delivery Method [3] Nasal Cannula Oxygen Delivery Method [2] Nasal Cannula Oxygen Delivery Method [1 ( Nasal Cannula Initial Baseline)] Oxygen Delivery Method Room Air Weight: 188 lb 7.924 oz Body Mass Index (BMI) 25.5 Intake and Output for Last 24 Hours 10/30/18 10/31/18 11/01/18 23:59 23:59 23:59 Intake Total 750 / 750 2447 / 2447 Output Total 475 / 475 775 / 775 Balance 275 / 275 1672 / 1672 Microbiology Past 72 Hours 10/31/18 15:25 Stool Occult Blood (ROBBIN) - Final Stool Occult Blood Positive Laboratory Tests Past 24 Hrs 10/31/18 10/31/18 10/31/18 15:20 15:20 15:20 WBC 8.6 RBC 3.43 L Hgb 9.1 L Hct 28.6 L MCV 83.4 MCH 26.5 L MCHC 31.8 L RDW 17.2 H RDW Differential 52.3 H Plt Count 266 MPV 10.4 Immature Gran % (Auto) 0.400 Neut % (Auto) 75.9 H Lymph % (Auto) 13.3 L [place] % (Auto) 8.1 Eos % (Auto) 1.5 Baso % (Auto) 0.8 Absolute Neuts (auto) 6.5 Absolute Lymphs (auto) 1.14 Total Counted Not Reportable Sodium 141 Potassium 4.6 Chloride 111 H Carbon Dioxide 24.0 Anion Gap 6 BUN 89 H Creatinine 2.75 H Estim Creat Clear Calc 23.52 Est GFR (MDRD) Af Amer 29 L Est GFR (MDRD) Non-Af 24 L BUN/Creatinine Ratio 32.4 H Glucose 101 Lactic Acid Calcium 8.4 L Magnesium Total Bilirubin 0.30 AST 9 L ALT 13 L Alkaline Phosphatase 38 L Total Protein 6.3 L Albumin 3.1 L Globulin 3.2 Albumin/Globulin Ratio 1.0 Blood Type O POSITIVE Antibody Screen NEGATIVE Crossmatch 10/31/18 10/31/18 10/31/18 15:20 15:20 17:18 WBC RBC Hgb Hct MCV MCH MCHC RDW RDW Differential Plt Count MPV Immature Gran % (Auto) Neut % (Auto) Lymph % (Auto) [place] % (Auto) Eos % (Auto) Baso % (Auto) Absolute Neuts (auto) Absolute Lymphs (auto) Total Counted Sodium Potassium Chloride Carbon Dioxide Anion Gap BUN Creatinine Estim Creat Clear Calc Est GFR (MDRD) Af Amer Est GFR (MDRD) Non-Af BUN/Creatinine Ratio Glucose Lactic Acid 0.9 Calcium Magnesium 2.0 Total Bilirubin AST ALT Alkaline Phosphatase Total Protein Albumin Globulin Albumin/Globulin Ratio Blood Type Antibody Screen Crossmatch See Detail 10/31/18 11/01/18 11/01/18 21:28 05:43 05:43 WBC 7.8 6.2 RBC 3.08 L 3.00 L Hgb 8.2 L 7.9 L Hct 25.5 L 25.3 L MCV 82.8 84.3 MCH 26.6 L 26.3 L MCHC 32.2 31.2 L RDW 17.2 H 17.2 H RDW Differential 52.5 H 50.3 H Plt Count 210 198 MPV 10.2 10.7 Immature Gran % (Auto) 0.100 0.300 Neut % (Auto) 72.0 H 63.0 Lymph % (Auto) 17.4 L 21.6 [place] % (Auto) 8.4 9.3 Eos % (Auto) 1.3 5.0 Baso % (Auto) 0.8 0.8 Absolute Neuts (auto) 5.6 3.9 Absolute Lymphs (auto) 1.35 1.33 Total Counted Not Reportable Not Reportable Sodium 146 H Potassium 4.1 Chloride 120 H Carbon Dioxide 19.0 L Anion Gap 7 BUN 73 H Creatinine 2.46 H Estim Creat Clear Calc 26.29 Est GFR (MDRD) Af Amer 33 L Est GFR (MDRD) Non-Af 27 L BUN/Creatinine Ratio 29.7 H Glucose 90 Lactic Acid Calcium 7.9 L Magnesium Total Bilirubin AST ALT Alkaline Phosphatase Total Protein Albumin Globulin Albumin/Globulin Ratio Blood Type Antibody Screen Crossmatch 11/01/18 05:43 WBC RBC Hgb Hct MCV MCH MCHC RDW RDW Differential Plt Count MPV Immature Gran % (Auto) Neut % (Auto) Lymph % (Auto) [place] % (Auto) Eos % (Auto) Baso % (Auto) Absolute Neuts (auto) Absolute Lymphs (auto) Total Counted Sodium Potassium Chloride Carbon Dioxide Anion Gap BUN Creatinine Estim Creat Clear Calc Est GFR (MDRD) Af Amer Est GFR (MDRD) Non-Af BUN/Creatinine Ratio Glucose Lactic Acid Calcium Magnesium 2.0 Total Bilirubin AST ALT Alkaline Phosphatase Total Protein Albumin Globulin Albumin/Globulin Ratio Blood Type Antibody Screen Crossmatch Assessment/Plan Patient seen by Kojo Marr PA-C under my supervision Patient was admitted with a complaint of black tarry stools. He does have a history of esophageal bleeding and bleeding ulcers of unclear location. Hb was 9.1 on admission, with positive hemoccult stool. General surgery was consulted for UGI bleed; he had an EGD and colonoscopy which showed no blood clots or stigmata of bleeding in esophagus, stomach and duodenum; he had 2 shallow ulcers in antrum of the stomach which were nonbleeding and without clots. Patient currently on sucralfate and PPI. Patient remained stable and was due to be discharged today, but had a 28 beat run of Vtach overnight. He was asymptomatic. Patient seen and examined. He had no complaints and felt well. Melena hadnt recurred. Review of systems otherwise negative. Labs and vitals reviewed. o/e: Vital Signs Height 6 ft Weight: 188 lb 7.924 oz Weight in Pounds 188.5 lbs Pulse Ox 97 Temperature 98.4 F Pulse Rate [4] 75 Pulse Rate [3] 77 Pulse Rate [2] 73 Pulse Rate [1 (Initial 64 Baseline)] Pulse Rate 67 Respiratory Rate [4] 29 Respiratory Rate [3] 18 Respiratory Rate [2] 29 Respiratory Rate [1 (Initial 21 Baseline)] Respiratory Rate 17 Blood Pressure [4] 115/72 Blood Pressure [3] 119/71 Blood Pressure [2] 183/73 Blood Pressure [1 (Initial 183/73 Baseline)] Blood Pressure 152/64 Blood Pressure Position Semi-Fowlers General: Alert, Oriented x3, Cooperative HEENT: Atraumatic, PERRLA, EOMI, Normocephalic Neck: Supple, No JVD, Negative Carotid Bruits Lungs: Clear to auscultation, Normal air movement Cardiovascular: Regular rate, No murmurs Abdomen: Bowel Sounds Present, Soft, Non Tender Extremities: No edema, Capillary Refill Less than 3 Seconds Skin: No rashes, No breakdown Musculoskeletal: No Tenderness to Palpation of Joints or Extremities Neurological: Cranial nerves II-XII grossly intact Psych/Mental Status: Normal Affect, Appropriate, Alert and oriented to time, place, person, mood and affect Plan is to continue sucralfate and PPI. Potassium and magnesium were WNL; to keep >4 and 2 respectively. Will transfuse one unit of PRBC as Hb had dropped to 7.9. 2D echo ordered, cardiology consulted. Will await rec's Rest of managment as per Kojo Marr PA-C's note, which I have reviewed and endorse. Code Visit OBSV E&M: 76209 Subsequent observation care L3
--- NOTE | 2018-11-01 16:19 | PCM.CONS.C ---
Problem List (1) Ventricular tachycardia Status: Acute (2) PAD (peripheral artery disease) Status: Chronic (3) Upper GI bleed Status: Acute (4) Acute blood loss anemia Status: Acute (5) CKD (chronic kidney disease), stage IV Status: Chronic (6) HTN (hypertension) Status: Chronic (7) DVT (deep venous thrombosis) Status: Chronic Qualifiers: DVT location: lower extremity Chronicity: chronic Laterality: left (8) Presence of IVC filter Status: Chronic Reason for Consult Date of Consultation: 11/01/18 History of Present Illness: The patient is a 78 year old white male with a past history which is included upper GI bleed secondary to possible peptic ulcer disease, anemia requiring PRBC transfusions, chronic renal insufficiency followed by nephrology with a creatinine level ranging from approximately 2.5-2.8 on average, hypertension, and peripheral arterial occlusive disease with bilateral renal artery stenosis based upon noninvasive studies and a history of abdominal aortic aneurysm status post surgical repair subsequently leading to left lower extremity DVT and IVC filter placement, who now presents for recurrent acute upper GI bleed with associated anemia as well as possibly acute on chronic renal insufficiency with subsequent findings while on cardiac electronic device monitor of an episode of wide-complex tachycardia concerning for ventricular tachycardia. The patient presented back for melenic stools. Underwent evaluation and was found to be anemic. He subsequently underwent EGD and was found to have antral ulcer related issues thought potentially the cause of his recurrent gastrointestinal bleeding process. He has been followed. His hemoglobin has decreased. There is some question whether this was related to his GI bleeding process as he is continued to have melenic stools versus somewhat of a delusional effect secondary to IV fluids used to treat what may be acute on chronic renal insufficiency. During his time he has been monitored. He was noted to have an episode of wide sustained tachycardia concerning for ventricular tachycardia lasting approximately 28 beats. The patient denies any definitive cardiac history. He states he underwent an exercise tolerance test many years ago which was unremarkable. He does not recall any other cardiovascular testing. He denies any ongoing chest discomfort or worsening shortness of breath/dyspnea. There is been no report of episodes of palpitations near syncope or syncope. He states he does monitor his blood pressure at home and on his home blood pressure device does detect at times that he has a skipped beat. He has undergone further evaluation here. This is included a transthoracic echocardiogram. His overall LV systolic function appeared to be preserved with an estimated LVEF of 65%. (Please see report below). [] Past Medical History Allergies/Adverse Reactions: Allergies No Known Allergies Allergy (Verified 10/31/18 14:55) Home Medications: Ambulatory Orders Medication Instructions Recorded Amlodipine Besylate 5 mg PO DAILY 10/31/18 Aspirin E.C. [Ecotrin] 325 mg PO DAILY@0800 10/31/18 Losartan/Hydrochlorothiazide 1 tab PO BID 10/31/18 [Losartan-Hctz 50-12.5 mg Tab] Metoprolol Succinate [Toprol Xl] 50 mg PO DAILY 10/31/18 Multivit-Min/FA/Lycopen/Lutein 1 tab PO DAILY 10/31/18 [Centrum Silver Men Tablet] [place]-3S/Dha/Epa/Fish Oil/D3 1 each PO DAILY 10/31/18 [[place]-3 + D Softgel] Past Medical History (Chronic Problems): Chronic Problems (Last Updated 10/31/18 @ 17:50 by Kings Holm DO) DVT (deep venous thrombosis) (Chronic) Presence of IVC filter (Chronic) CKD (chronic kidney disease), stage IV (Chronic) HTN (hypertension) (Chronic) PAD (peripheral artery disease) (Chronic) Surgical History: total hip arthroplasty, - - *Family History Maternal History Items: No pertinent history, - - no CAD Lives: Spouse/ Significant Other Smoking Status: Former smoker Tobacco Use: Non-smoker Alcohol: Rare Drugs: None Review of Systems - Review of Systems Cardiovascular: Denies: Chest Discomfort, Shortness of Breath, Orthopnea, PND, Peripheral Edema, Palpitations, Lightheadedness, Dizziness, Near Syncope, Syncope Respiratory: Denies: Cough, Sputum Production, Hemoptysis Gastrointestinal: Reports: Melena. Denies: Hematemesis, Hematochezia Genitourinary: Denies: Dysuria, Hematuria Subjectve: Male who appears to be resting comfortably at the moment in no acute distress. Objective: Vital Signs Temp Pulse Resp BP Pulse Ox 98.4 F 67 17 152/64 H 97 11/01/18 15:30 11/01/18 15:38 11/01/18 15:30 11/01/18 15:30 11/01/18 15:30 Oxygen Flow Rate (L/min) [3] 4 Oxygen Flow Rate (L/min) [2] 4 Oxygen Flow Rate (L/min) [1 ( 4 Initial Baseline)] Oxygen Flow Rate (L/min) 2 Oxygen Delivery Method [4] Nasal Cannula Oxygen Delivery Method [3] Nasal Cannula Oxygen Delivery Method [2] Nasal Cannula Oxygen Delivery Method [1 ( Nasal Cannula Initial Baseline)] Oxygen Delivery Method Room Air Weight: 188 lb 7.924 oz Body Mass Index (BMI) 25.5 Intake and Output for Last 24 Hours 10/30/18 10/31/18 11/01/18 23:59 23:59 23:59 Intake Total 750 / 750 2447 / 2447 Output Total 475 / 475 775 / 775 Balance 275 / 275 1672 / 1672 General: Awake, Alert, Oriented x 3, Cooperative, No Acute Distress HEENT: Atraumatic, Normocephalic, PERRL, EOMI, Sclera Non Icteric Oral: Moist Mucosa Neck: Supple, Good ROM, No JVD Lungs: Clear to auscultation Cardiovascular: Regular Rhythm, Normal S1, Normal S2 Murmur Murmur: Grade 2/6, Soft, Mid Systolic, LLSB, LVOT Vascular: R Carotid Artery Bruits Abdomen: Bowel Sounds Present, Soft, Non Tender Extremities: Trace RLE Edema, Trace LLE Edema Psych/Mental Status: Appropriate 10/31/18 15:20: WBC 8.6, RBC 3.43 L, Hgb 9.1 L, Hct 28.6 L, MCV 83.4, MCH 26.5 L, MCHC 31.8 L, RDW 17.2 H, RDW Differential 52.3 H, Plt Count 266, MPV 10.4, Immature Gran % (Auto) 0.400, Neut % (Auto) 75.9 H, Lymph % (Auto) 13.3 L, [place] % (Auto) 8.1, Eos % (Auto) 1.5, Baso % (Auto) 0.8, Absolute Neuts (auto) 6.5, Total Counted Not Reportable 10/31/18 15:20: Sodium 141, Potassium 4.6, Chloride 111 H, Carbon Dioxide 24.0, Anion Gap 6, BUN 89 H, Creatinine 2.75 H, Est GFR (MDRD) Af Amer 29 L, Est GFR (MDRD) Non-Af 24 L, BUN/Creatinine Ratio 32.4 H, Glucose 101, Calcium 8.4 L, Total Bilirubin 0.30 10/31/18 15:20: Magnesium 2.0 10/31/18 17:18: Lactic Acid 0.9 10/31/18 21:28: WBC 7.8, RBC 3.08 L, Hgb 8.2 L, Hct 25.5 L, MCV 82.8, MCH 26.6 L, MCHC 32.2, RDW 17.2 H, RDW Differential 52.5 H, Plt Count 210, MPV 10.2, Immature Gran % (Auto) 0.100, Neut % (Auto) 72.0 H, Lymph % (Auto) 17.4 L, [place] % (Auto) 8.4, Eos % (Auto) 1.3, Baso % (Auto) 0.8, Absolute Neuts (auto) 5.6, Total Counted Not Reportable 11/01/18 05:43: WBC 6.2, RBC 3.00 L, Hgb 7.9 L, Hct 25.3 L, MCV 84.3, MCH 26.3 L, MCHC 31.2 L, RDW 17.2 H, RDW Differential 50.3 H, Plt Count 198, MPV 10.7, Immature Gran % (Auto) 0.300, Neut % (Auto) 63.0, Lymph % (Auto) 21.6, [place] % (Auto) 9.3, Eos % (Auto) 5.0, Baso % (Auto) 0.8, Absolute Neuts (auto) 3.9, Total Counted Not Reportable 11/01/18 05:43: Sodium 146 H, Potassium 4.1, Chloride 120 H, Carbon Dioxide 19.0 L, Anion Gap 7, BUN 73 H, Creatinine 2.46 H, Est GFR (MDRD) Af Amer 33 L, Est GFR (MDRD) Non-Af 27 L, BUN/Creatinine Ratio 29.7 H, Glucose 90, Calcium 7.9 L 11/01/18 05:43: Magnesium 2.0 Rhythm: Sinus rhythm; nonsustained wide-complex tachycardia concerning for nonsustained VT EKG: Sinus rhythm ECHO: Interpretation Summary The study was technically difficult. Left ventricular systolic function is normal. The estimated ejection fraction is 65 %. Mild concentric left ventricular hypertrophy. The left atrium is mildly enlarged. Anterior leaflet diffuse mitral valve thickening. Mild (1+) mitral valve insufficiency. Trivial tricuspid valve insufficiency. Trivial aortic valve insufficiency. Trivial pulmonic valve insufficiency. Unable to estimate RV systolic pressure/pulmonary artery pressure due to technically difficult study. Diastolic function is indeterminate. Assessment/Plan 1. Nonsustained wide-complex tachycardia concerning for nonsustained VT At the present time the patient does have cardiovascular risk factors. This appears to include a history of hypertension as well as peripheral artery disease. This does increase his risk for coronary artery disease. He has had an episode of nonsustained wide-complex tachycardia concerning sustained VT. He appeared to be asymptomatic. He was not hemodynamically compromised. He has had noninvasive study with a transthoracic echocardiogram. The results are as noted above. The present time he will continue to be followed. He is going to be placed on medical management which would include beta-samia therapy if tolerated. He is also anemic. His hemoglobin is decreased. He is going to be receiving PRBCs which may be beneficial with respect oxygen-carrying capacity. Ideally based upon his cardiovascular risk factors and is finding he would be considered for current further cardiovascular evaluation. This may include diagnostic cardiac catheterization to evaluate for underlying CAD that may trigger ischemic mediated dysrhythmias. 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 Thus at the present time, after being treated medically, receiving PRBCs, if he appears symptomatically hemodynamically stable he may need further screening for the possibility of CAD with a pharmacologic stress nuclear imaging study. 2. Peripheral artery disease He does have peripheral artery disease. On examination he has a right carotid artery bruit. He has been recently diagnosed by renal artery duplex study with bilateral renal artery stenosis. He is also had a AAA in the past which required surgical repair. Thus this does increase his risk for cardiovascular disease. He will need to continue risk factor evaluation care as tolerated. 3. Upper GI bleed with associated anemia This does make it difficult to place him on antiplatelet and anticoagulants from a cardiovascular standpoint. Thus it makes it challenging for him to be evaluated in the cardiac catheterization laboratory if needed. The present time he will continue medical management. It is also reasonable that he received PRBCs to increase his oxygen carrying capacity which may benefit his cardiovascular status. 4. Chronic renal insufficiency He may have an element of acute on chronic renal insufficiency from decreased oral intake recently. However he does have chronic renal insufficiency and follows with Dr. Castillo of nephrology. He states he has been told that he may require dialysis. This does make it challenging if he would require invasive studies with IV contrast that could lead to an IV contrast related nephropathy and subsequent renal failure, etc. 5. Hypertension He will continue medical management as deemed appropriate. 6. DVT status post IVC filter placement The patient is states this occurred following his abdominal aortic aneurysm repair in 2005. He was treated with IVC filter placement at the time. Comment: The above is been discussed with the patient, spouse, and the [facility] hospitalist group. This note was generated with [employer] dictation software. It may contain incorrect words, spelling, and punctuation that were not noted in checking the note before signing.
--- NOTE | 2018-11-01 16:24 | CON.PCM_ITS ---
Problem List (1) Ventricular tachycardia Status: Acute (2) PAD (peripheral artery disease) Status: Chronic (3) Upper GI bleed Status: Acute (4) Acute blood loss anemia Status: Acute (5) CKD (chronic kidney disease), stage IV Status: Chronic (6) HTN (hypertension) Status: Chronic (7) DVT (deep venous thrombosis) Status: Chronic Qualifiers: DVT location: lower extremity Chronicity: chronic Laterality: left (8) Presence of IVC filter Status: Chronic Reason for Consult Date of Consultation: 11/01/18 History of Present Illness: The patient is a 78 year old white male with a past history which is included upper GI bleed secondary to possible peptic ulcer disease, anemia requiring PRBC transfusions, chronic renal insufficiency followed by nephrology with a creatinine level ranging from approximately 2.5-2.8 on average, hypertension, and peripheral arterial occlusive disease with bilateral renal artery stenosis based upon noninvasive studies and a history of abdominal aortic aneurysm status post surgical repair subsequently leading to left lower extremity DVT and IVC filter placement, who now presents for recurrent acute upper GI bleed with associated anemia as well as possibly acute on chronic renal insufficiency with subsequent findings while on cardiac monitoring and evaluation advisor of an episode of wide- complex tachycardia concerning for ventricular tachycardia. The patient presented back for melenic stools. Underwent evaluation and was found to be anemic. He subsequently underwent EGD and was found to have antral ulcer related issues thought potentially the cause of his recurrent gastrointestinal bleeding process. He has been followed. His hemoglobin has decreased. There is some question whether this was related to his GI bleeding process as he is continued to have melenic stools versus somewhat of a delusional effect secondary to IV fluids used to treat what may be acute on chronic renal insufficiency. During his time he has been monitored. He was noted to have an episode of wide sustained tachycardia concerning for ventricular tachycardia lasting approximately 28 beats. The patient denies any definitive cardiac history. He states he underwent an exercise tolerance test many years ago which was unremarkable. He does not recall any other cardiovascular testing. He denies any ongoing chest discomfort or worsening shortness of breath/dyspnea. There is been no report of episodes of palpitations near syncope or syncope. He states he does monitor his blood pressure at home and on his home blood pressure device does detect at times that he has a skipped beat. He has undergone further evaluation here. This is included a transthoracic echocardiogram. His overall LV systolic function appeared to be preserved with an estimated LVEF of 65%. (Please see report below). [] Past Medical History Allergies/Adverse Reactions: Allergies No Known Allergies Allergy (Verified 10/31/18 14:55) Home Medications: Ambulatory Orders Medication Instructions Recorded Amlodipine Besylate 5 mg PO DAILY 10/31/18 Aspirin E.C. [Ecotrin] 325 mg PO DAILY@0800 10/31/18 Losartan/Hydrochlorothiazide 1 tab PO BID 10/31/18 [Losartan-Hctz 50-12.5 mg Tab] Metoprolol Succinate [Toprol Xl] 50 mg PO DAILY 10/31/18 Multivit-Min/FA/Lycopen/Lutein 1 tab PO DAILY 10/31/18 [Centrum Silver Men Tablet] Matthews-3S/Dha/Epa/Fish Oil/D3 1 each PO DAILY 10/31/18 [Matthews-3 + D Softgel] Past Medical History (Chronic Problems): Chronic Problems (Last Updated 10/31/18 @ 17:50 by Kings Holm DO) DVT (deep venous thrombosis) (Chronic) Presence of IVC filter (Chronic) CKD (chronic kidney disease), stage IV (Chronic) HTN (hypertension) (Chronic) PAD (peripheral artery disease) (Chronic) Surgical History: total hip arthroplasty, - - *Family History Maternal History Items: No pertinent history, - - no CAD Lives: Spouse/ Significant Other Smoking Status: Former smoker Tobacco Use: Non-smoker Alcohol: Rare Drugs: None Review of Systems - Review of Systems Cardiovascular: Denies: Chest Discomfort, Shortness of Breath, Orthopnea, PND, Peripheral Edema, Palpitations, Lightheadedness, Dizziness, Near Syncope, Syncope Respiratory: Denies: Cough, Sputum Production, Hemoptysis Gastrointestinal: Reports: Melena. Denies: Hematemesis, Hematochezia Genitourinary: Denies: Dysuria, Hematuria Subjectve: Male who appears to be resting comfortably at the moment in no acute distress. Objective: Vital Signs Temp Pulse Resp BP Pulse Ox 98.4 F 67 17 152/64 H 97 11/01/18 15:30 11/01/18 15:38 11/01/18 15:30 11/01/18 15:30 11/01/18 15:30 Oxygen Flow Rate (L/min) [3] 4 Oxygen Flow Rate (L/min) [2] 4 Oxygen Flow Rate (L/min) [1 ( 4 Initial Baseline)] Oxygen Flow Rate (L/min) 2 Oxygen Delivery Method [4] Nasal Cannula Oxygen Delivery Method [3] Nasal Cannula Oxygen Delivery Method [2] Nasal Cannula Oxygen Delivery Method [1 ( Nasal Cannula Initial Baseline)] Oxygen Delivery Method Room Air Weight: 188 lb 7.924 oz Body Mass Index (BMI) 25.5 Intake and Output for Last 24 Hours 10/30/18 10/31/18 11/01/18 23:59 23:59 23:59 Intake Total 750 / 750 2447 / 2447 Output Total 475 / 475 775 / 775 Balance 275 / 275 1672 / 1672 General: Awake, Alert, Oriented x 3, Cooperative, No Acute Distress HEENT: Atraumatic, Normocephalic, PERRL, EOMI, Sclera Non Icteric Oral: Moist Mucosa Neck: Supple, Good ROM, No JVD Lungs: Clear to auscultation Cardiovascular: Regular Rhythm, Normal S1, Normal S2 Murmur Murmur: Grade 2/6, Soft, Mid Systolic, LLSB, LVOT Vascular: R Carotid Artery Bruits Abdomen: Bowel Sounds Present, Soft, Non Tender Extremities: Trace RLE Edema, Trace LLE Edema Psych/Mental Status: Appropriate 10/31/18 15:20: WBC 8.6, RBC 3.43 L, Hgb 9.1 L, Hct 28.6 L, MCV 83.4, MCH 26.5 L , MCHC 31.8 L, RDW 17.2 H, RDW Differential 52.3 H, Plt Count 266, MPV 10.4, Immature Gran % (Auto) 0.400, Neut % (Auto) 75.9 H, Lymph % (Auto) 13.3 L, [place] % (Auto) 8.1, Eos % (Auto) 1.5, Baso % (Auto) 0.8, Absolute Neuts (auto) 6.5, Total Counted Not Reportable 10/31/18 15:20: Sodium 141, Potassium 4.6, Chloride 111 H, Carbon Dioxide 24.0, Anion Gap 6, BUN 89 H, Creatinine 2.75 H, Est GFR (MDRD) Af Amer 29 L, Est GFR (MDRD) Non-Af 24 L, BUN/Creatinine Ratio 32.4 H, Glucose 101, Calcium 8.4 L, Total Bilirubin 0.30 10/31/18 15:20: Magnesium 2.0 10/31/18 17:18: Lactic Acid 0.9 10/31/18 21:28: WBC 7.8, RBC 3.08 L, Hgb 8.2 L, Hct 25.5 L, MCV 82.8, MCH 26.6 L , MCHC 32.2, RDW 17.2 H, RDW Differential 52.5 H, Plt Count 210, MPV 10.2, Immature Gran % (Auto) 0.100, Neut % (Auto) 72.0 H, Lymph % (Auto) 17.4 L, [place] % (Auto) 8.4, Eos % (Auto) 1.3, Baso % (Auto) 0.8, Absolute Neuts (auto) 5.6, Total Counted Not Reportable 11/01/18 05:43: WBC 6.2, RBC 3.00 L, Hgb 7.9 L, Hct 25.3 L, MCV 84.3, MCH 26.3 L , MCHC 31.2 L, RDW 17.2 H, RDW Differential 50.3 H, Plt Count 198, MPV 10.7, Immature Gran % (Auto) 0.300, Neut % (Auto) 63.0, Lymph % (Auto) 21.6, [place] % (Auto) 9.3, Eos % (Auto) 5.0, Baso % (Auto) 0.8, Absolute Neuts (auto) 3.9, Total Counted Not Reportable 11/01/18 05:43: Sodium 146 H, Potassium 4.1, Chloride 120 H, Carbon Dioxide 19.0 L, Anion Gap 7, BUN 73 H, Creatinine 2.46 H, Est GFR (MDRD) Af Amer 33 L, Est GFR (MDRD) Non-Af 27 L, BUN/Creatinine Ratio 29.7 H, Glucose 90, Calcium 7.9 L 11/01/18 05:43: Magnesium 2.0 Rhythm: Sinus rhythm; nonsustained wide-complex tachycardia concerning for nonsustained VT EKG: Sinus rhythm ECHO: Interpretation Summary The study was technically difficult. Left ventricular systolic function is normal. The estimated ejection fraction is 65 %. Mild concentric left ventricular hypertrophy. The left atrium is mildly enlarged. Anterior leaflet diffuse mitral valve thickening. Mild (1+) mitral valve insufficiency. Trivial tricuspid valve insufficiency. Trivial aortic valve insufficiency. Trivial pulmonic valve insufficiency. Unable to estimate RV systolic pressure/pulmonary artery pressure due to technically difficult study. Diastolic function is indeterminate. Assessment/Plan 1. Nonsustained wide-complex tachycardia concerning for nonsustained VT At the present time the patient does have cardiovascular risk factors. This appears to include a history of hypertension as well as peripheral artery disease. This does increase his risk for coronary artery disease. He has had an episode of nonsustained wide-complex tachycardia concerning sustained VT. He appeared to be asymptomatic. He was not hemodynamically compromised. He has had noninvasive study with a transthoracic echocardiogram. The results are as noted above. The present time he will continue to be followed. He is going to be placed on medical management which would include beta-samia therapy if tolerated. He is also anemic. His hemoglobin is decreased. He is going to be receiving PRBCs which may be beneficial with respect oxygen-carrying capacity. Ideally based upon his cardiovascular risk factors and is finding he would be considered for current further cardiovascular evaluation. This may include diagnostic cardiac catheterization to evaluate for underlying CAD that may trigger ischemic mediated dysrhythmias. However there is concern in proceeding with such at this time based upon his acute gastrointestinal bleeding process, difficulty taking antiplatelet/anticoagulants, as well as his chronic renal insufficiency and the concern of IV contrast related nephropathy which could bring on dialysis sooner than what is already being discussed with him by his vest finisher. Thus at the present time, after being treated medically, receiving PRBCs, if he appears symptomatically hemodynamically stable he may need further screening for the possibility of CAD with a pharmacologic stress nuclear imaging study. 2. Peripheral artery disease He does have peripheral artery disease. On examination he has a right carotid artery bruit. He has been recently diagnosed by renal artery duplex study with bilateral renal artery stenosis. He is also had a AAA in the past which required surgical repair. Thus this does increase his risk for cardiovascular disease. He will need to continue risk factor evaluation care as tolerated. 3. Upper GI bleed with associated anemia This does make it difficult to place him on antiplatelet and anticoagulants from a cardiovascular standpoint. Thus it makes it challenging for him to be evaluated in the cardiac catheterization laboratory if needed. The present time he will continue medical management. It is also reasonable that he received PRBCs to increase his oxygen carrying capacity which may benefit his cardiovascular status. 4. Chronic renal insufficiency He may have an element of acute on chronic renal insufficiency from decreased oral intake recently. However he does have chronic renal insufficiency and follows with Dr. Castillo of nephrology. He states he has been told that he may require dialysis. This does make it challenging if he would require invasive studies with IV contrast that could lead to an IV contrast related nephropathy and subsequent renal failure, etc. 5. Hypertension He will continue medical management as deemed appropriate. 6. DVT status post IVC filter placement The patient is states this occurred following his abdominal aortic aneurysm repair in 2005. He was treated with IVC filter placement at the time. Comment: The above is been discussed with the patient, spouse, and the [facility] hospitalist group. This note was generated with [employer] dictation software. It may contain incorrect words, spelling, and punctuation that were not noted in checking the note before signing.
[2018-11-01 19:43] LABS: Hematocrit 26.9 % (40-54); Hemoglobin 8.6 g/dl (13.0-16.5)
[2018-11-01] MEDS: Pantoprazole Sodium 40 MG Tablet PO (21:48)
[2018-11-02] VITALS (13 sets, daily range): BP systolic 144–181; BP diastolic 48–83; PULSE 63–78; RESP 16–18; TEMP 36.6–37.2; O2SAT 95–97
[2018-11-02] MEDS: hydrALAZINE 20 MG/ML Vial 10 MG IV (04:17)
[2018-11-02 05:39] LABS: Hemoglobin 8.5 g/dl (13.0-16.5)
[2018-11-02] MEDS: 0.9% Normal Saline 1,000 ML 125 ML IV ×2 (05:45→22:32)
[2018-11-02 05:54] LABS: Anion Gap 7 (5-15); BUN 56 mg/dL (7-18); BUN/Creat Ratio 24.2 RATIO (10-20); Chloride 119 mmol/L (98-107); Creatinine, Serum 2.31 mg/dL (0.70-1.30); EST Glomerular Filtration Rate 29 mL/min (>60); Est Glom Filt Rate - Afr Amer 35 mL/min (>60); Estimated Creatinine Clearance 27.99 ml/min; Glucose 91 mg/dL (74-106); Potassium 4.2 mmol/L (3.5-5.1); Sodium Level 145 mmol/L (136-145); Thyroid Stim Hormone (TSH) 0.59 uIU/mL (0.358-3.74)
--- NOTE | 2018-11-02 05:55 | CDU_ITS ---
Reason For Study: BRUIT Rt. Velocities/BP Lt. Velocities/BP Prox CCA 104.7/21.3 cm/sec. Prox CCA 71.3/17.5 cm/sec. Mid CCA 109.9/25.2 cm/sec. Mid CCA 91.0/20.8 cm/sec. Dist CCA 74.2/20.7 cm/sec. Dist CCA 100.6/31.8 cm/sec. Prox ICA 67.4/14.6 cm/sec. Prox ICA 116.7/21.7 cm/sec. Mid ICA 80.9/19.5 cm/sec. Mid ICA 102.1/29.0 cm/sec. Dist ICA 93.0/27.2 cm/sec. Dist ICA 53.9/23.2 cm/sec. Rt. ICA/CCA = 93.0/109.9=0.85. Lt. ICA/CCA = 116.7/91.0=1.3. Prox ECA 120.4/21.7 cm/sec. Prox ECA 84.6/15.8 cm/sec. Rt. Vert. 51.5/15.3 cm/sec. Lt. Vert. 46.2/17.9 cm/sec. Right Extracranial There is homogeneous, irregular atherosclerotic plaque noted in the right common carotid artery. There is homogeneous, smooth atherosclerotic plaque noted in the right internal carotid artery. There is heterogeneous, smooth atherosclerotic plaque noted in the right external carotid artery. Antegrade flow is noted in the right vertebral artery. There is heterogeneous, irregular atherosclerotic plaque noted in the right bulb. Left Extracranial There is homogeneous, smooth atherosclerotic plaque noted in the left common carotid artery. There is heterogeneous, irregular atherosclerotic plaque noted in the left internal carotid artery. There is homogeneous, smooth atherosclerotic plaque noted in the left external carotid artery. Antegrade flow is noted in the left vertebral artery. There is homogeneous, smooth atherosclerotic plaque noted in the left bulb. Procedure Carotid Duplex 25198. The exam was diagnostic. Exam performed portable in patient room. Interpretation Summary Irregular plague at the proximal right internal and external carotids. <50% stenosis right internal and external carotids Irregular plague at the proximal left internal and external carotid with <50% stenosis of each. Patent and antegrade vertebrals bilaterally Ordering Physician: Juancarlos Trujillo Referring Physician: Juliana Jauregui Performed By: Joceline Bueno RDCS, RVT
[2018-11-02 09:33] LABS: Iron 28 ug/dL (65-175); Iron Binding Capacity,Total 338 ug/dL (250-450); PERCENT IRON SATURATION 8.3 % (15.0-55.0)
[2018-11-02] MEDS: Multivitamins,Ther W-Minerals Tablet 1 TABLET PO (09:55)
[2018-11-02] MEDS: hydroCHLOROthiazide 12.5mg 12.5 MG PO ×2 (09:55→22:21)
[2018-11-02] MEDS: Losartan Potassium 50 MG Tablet PO ×2 (09:55→22:17)
[2018-11-02] MEDS: amLODIPine 5 MG Tablet PO (09:55)
[2018-11-02] MEDS: Omega-3 Acid Ethyl Esters 1 GM Capsule PO (09:55)
[2018-11-02] MEDS: Metoprolol(XL)Succ 50 MG Tablet PO (09:56)
[2018-11-02] MEDS: Pantoprazole Sodium 40 MG Tablet PO ×2 (09:56→22:18)
--- NOTE | 2018-11-02 10:59 | CASEMGMT ---
LW/POA not on chart. SW spoke w/pt and . Pt aware forms not on chart, states he does have them at home. SW asked pt to bring in the forms in the future if able. ANDRE Whyte
--- NOTE | 2018-11-02 11:48 | CASEMGMT ---
JANET BONILLA assessment: Face to Face with patient for initial transition planning/care coordination assessment. JANET BONILLA introduced self and role at [facility], pt voices understanding and consents to assessment at this time. Pt is lying on his left side in bed in no distress at this time. Pt is A/Ox4 at this time and answers all questions appropriately at this time. Care providers, pharmacy, and demographics verified at this time. PCP: [facility] Specialists: Castillo, nephro; Moodispaelmer, cardio Preferred Pharmacy: [facility], [employer] mail order Insurance: [facility] Prescription Benefit: [facility] Living Will/HPOA: Pt states has LW/HPOA and is aware that they are not currently on file at [facility] at this time. LNOK: Lizzy Pierson, Living Arrangements: Pt states lives with in 1 story home and states no concerns at home at this time. Pt states is independent with ADL's. Transportation: Pt states drives self and states no transportation concerns at this time. DME/HHC: Pt states has a cane, grab bars and shower chairs. Pt states only uses the cane occasionally. Pt states no need for any further DME at this time. Pt states has had HHC in the past and has been in the [facility] in the past s/p hip surgeries. Pt states no concerns with going home at time of discharge. Pt states is retired. Pt states does not smoke or drink ETOH. Pt states no further concerns/needs at this time. CM to follow for any further discharge planning/needs. Advised pt to ask for CM if any further discharge planning/needs arise, voices understanding. Pt Goal: Home Plan: [place] JANET BONILLA
--- NOTE | 2018-11-02 12:29 | PCM.PROGNOTE ---
<Kojo Marr - Last Filed: 11/02/18 12:29> Patient Problems: Active and Suspected Problems (Last Updated 10/31/18 @ 17:50 by Kings Holm DO) Upper GI bleed (Acute) Acute blood loss anemia (Acute) Ventricular tachycardia (Acute) Subjective: Pt feeling well. He is very concerned about any treatment going forward that could potentially make his kidneys worse. He has no CP, palp, LH, weakness today. He will receive one unit of blood then undergo stress evaluation tomorrow. - Physical Exam General: Alert, Oriented x3, Cooperative HEENT: Atraumatic, PERRLA, EOMI, Normocephalic Neck: Supple, No JVD, Negative Carotid Bruits Lungs: Clear to auscultation, Normal air movement Cardiovascular: Regular rate, No murmurs Abdomen: Bowel Sounds Present, Soft, Non Tender Extremities: No edema, Capillary Refill Less than 3 Seconds Skin: No rashes, No breakdown Musculoskeletal: No Tenderness to Palpation of Joints or Extremities Neurological: Cranial nerves II-XII grossly intact Psych/Mental Status: Normal Affect, Appropriate, Alert and oriented to time, place, person, mood and affect Vital Signs Temp Pulse Resp BP Pulse Ox 98.0 F 73 17 144/66 H 96 11/02/18 09:51 11/02/18 11:29 11/02/18 09:51 11/02/18 09:51 11/02/18 09:51 Oxygen Flow Rate (L/min) [3] 4 Oxygen Flow Rate (L/min) [2] 4 Oxygen Flow Rate (L/min) [1 ( 4 Initial Baseline)] Oxygen Flow Rate (L/min) 2 Oxygen Delivery Method [4] Nasal Cannula Oxygen Delivery Method [3] Nasal Cannula Oxygen Delivery Method [2] Nasal Cannula Oxygen Delivery Method [1 ( Nasal Cannula Initial Baseline)] Oxygen Delivery Method Room Air Weight: 188 lb 7.924 oz Body Mass Index (BMI) 25.5 Intake and Output for Last 24 Hours 10/31/18 11/01/18 11/02/18 23:59 23:59 23:59 Intake Total 750 / 750 4903 / 4903 1353 / 1353 Output Total 475 / 475 1400 / 1400 1675 / 1675 Balance 275 / 275 3503 / 3503 -322 / -322 Microbiology Past 72 Hours 10/31/18 15:25 Stool Occult Blood (ROBBIN) - Final Stool Occult Blood Positive Laboratory Tests Past 24 Hrs 10/31/18 11/01/18 11/02/18 15:20 19:15 05:04 Hgb 8.6 L Hct 26.9 L Sodium 145 Potassium 4.2 Chloride 119 H Carbon Dioxide 19.0 L Anion Gap 7 BUN 56 H Creatinine 2.31 H Estim Creat Clear Calc 27.99 Est GFR (MDRD) Af Amer 35 L Est GFR (MDRD) Non-Af 29 L BUN/Creatinine Ratio 24.2 H Glucose 91 Calcium 8.0 L Iron TIBC Iron Saturation TSH 0.59 Crossmatch See Detail 11/02/18 11/02/18 05:04 05:04 Hgb 8.5 L Hct 27.0 L Sodium Potassium Chloride Carbon Dioxide Anion Gap BUN Creatinine Estim Creat Clear Calc Est GFR (MDRD) Af Amer Est GFR (MDRD) Non-Af BUN/Creatinine Ratio Glucose Calcium Iron 28 L TIBC 338 Iron Saturation 8.3 L TSH Crossmatch Medical Necessity - Tobacco Use Smoking Status: Former smoker Tobacco Use: Non-smoker Assessment/Plan All Active Problems (Last Updated 10/31/18 @ 17:50 by Kings Holm DO) Upper GI bleed (Acute) Acute blood loss anemia (Acute) Ventricular tachycardia (Acute) 1. Acute blood loss anemia - 2/2 upper GI bleeding. Hx erosive esophagitis per notes from Dr. Rashid. Protonix BID + Carafate. EGD done yesterday by Dr. Aguilar - nonbleeding ulcers noted. -Transfuse 2nd unit blood today. 2. Vtach - continue BB. Cardiology recommending further transfusion. Stress test in AM. Echo done: EF 65% 1+ MVI, pulmonary pressure not assessed. 3. Hx DVTs - IVC filter in place, last LE duplex with chronic changes, resolution of old DVTs 4. CKDIV complicated by Renal artery stenosis - Pt of Dr. Castillo. Vascular studies in EMR. LE venous study as above, BL renal artery stenosis >60% -Cardiology has ordered carotid US with his hx of vascular disease and concern for carotid involvement. Results pending. 5. HTN - home meds 6. GERD - on ppi 7. Hx AAA repair DVT ppx: SCDs This patient was seen by Kojo Marr PA-C under the supervision of Dr. Dockery <Talya Dockery - Last Filed: 11/02/18 15:34> - Physical Exam Vital Signs Temp Pulse Resp BP Pulse Ox 98.0 F 73 17 144/66 H 96 11/02/18 09:51 11/02/18 11:29 11/02/18 09:51 11/02/18 09:51 11/02/18 09:51 Oxygen Flow Rate (L/min) [3] 4 Oxygen Flow Rate (L/min) [2] 4 Oxygen Flow Rate (L/min) [1 ( 4 Initial Baseline)] Oxygen Flow Rate (L/min) 2 Oxygen Delivery Method [4] Nasal Cannula Oxygen Delivery Method [3] Nasal Cannula Oxygen Delivery Method [2] Nasal Cannula Oxygen Delivery Method [1 ( Nasal Cannula Initial Baseline)] Oxygen Delivery Method Room Air Weight: 188 lb 7.924 oz Body Mass Index (BMI) 25.5 Intake and Output for Last 24 Hours 10/31/18 11/01/18 11/02/18 23:59 23:59 23:59 Intake Total 750 / 750 4903 / 4903 1353 / 1353 Output Total 475 / 475 1400 / 1400 1675 / 1675 Balance 275 / 275 3503 / 3503 -322 / -322 Microbiology Past 72 Hours 10/31/18 15:25 Stool Occult Blood (ROBBIN) - Final Stool Occult Blood Positive Laboratory Tests Past 24 Hrs 10/31/18 10/31/18 11/01/18 15:20 16:20 19:15 Hgb 8.6 L Hct 26.9 L Sodium Potassium Chloride Carbon Dioxide Anion Gap BUN Creatinine Estim Creat Clear Calc Est GFR (MDRD) Af Amer Est GFR (MDRD) Non-Af BUN/Creatinine Ratio Glucose Calcium Iron TIBC Iron Saturation TSH Crossmatch See Detail See Detail 11/02/18 11/02/18 11/02/18 05:04 05:04 05:04 Hgb 8.5 L Hct 27.0 L Sodium 145 Potassium 4.2 Chloride 119 H Carbon Dioxide 19.0 L Anion Gap 7 BUN 56 H Creatinine 2.31 H Estim Creat Clear Calc 27.99 Est GFR (MDRD) Af Amer 35 L Est GFR (MDRD) Non-Af 29 L BUN/Creatinine Ratio 24.2 H Glucose 91 Calcium 8.0 L Iron 28 L TIBC 338 Iron Saturation 8.3 L TSH 0.59 Crossmatch Assessment/Plan Patient seen by Kojo Marr under my supervision. Has no complaints this morning and feels well. Review of systems otherwise negative. Discussed with cardiology, will give another unit of packed red blood cells to boost his hemoglobin. Labs and vitals reviewed. o/e: Vital Signs Height 6 ft Weight: 188 lb 7.924 oz Weight in Pounds 188.5 lbs Pulse Ox 96 Temperature 98.0 F Pulse Rate [4] 75 Pulse Rate [3] 77 Pulse Rate [2] 73 Pulse Rate [1 (Initial 64 Baseline)] Pulse Rate 73 Respiratory Rate [4] 29 Respiratory Rate [3] 18 Respiratory Rate [2] 29 Respiratory Rate [1 (Initial 21 Baseline)] Respiratory Rate 17 Blood Pressure [BP] 149/48 Blood Pressure [4] 115/72 Blood Pressure [3] 119/71 Blood Pressure [2] 183/73 Blood Pressure [1 (Initial 183/73 Baseline)] Blood Pressure 144/66 Blood Pressure Position [BP] Left Lateral Blood Pressure Position Semi-Fowlers General: Alert, Oriented x3, Cooperative HEENT: Atraumatic, PERRLA, EOMI, Normocephalic Neck: Supple, No JVD, Negative Carotid Bruits Lungs: Clear to auscultation, Normal air movement Cardiovascular: Regular rate, No murmurs Abdomen: Bowel Sounds Present, Soft, Non Tender Extremities: No edema, Capillary Refill Less than 3 Seconds Skin: No rashes, No breakdown Musculoskeletal: No Tenderness to Palpation of Joints or Extremities Neurological: Cranial nerves II-XII grossly intact Psych/Mental Status: Normal Affect, Appropriate, Alert and oriented to time, place, person, mood and affect Continue Sucralfate and PPI. To get a second unit of packed red blood cells today. Hemoglobin today is 8.6. V. tach to dental care overnight. Per cardiology, best management for patient will be a cardiac cath but in light of patient's recent GI bleed and chronic kidney disease, cardiac cath will be done due to risk of patient's kidney disease worsening and also will be able to be on aspirin and Plavix on account of GI bleed. Patient will likely have a stress test tomorrow. Carotid ultrasound with an echo was ordered. Of note, patient also has bilateral renal artery stenosis more than 60% and follows up with DR Castillo Management as per Kojo Marr PA-C's note which I reviewed and endorsed. Code Visit Inpatient E&M: 18223 Subs Hosp L3
--- NOTE | 2018-11-02 12:43 | PN.SURG_ITS ---
Patient Problems: Active and Suspected Problems (Last Updated 10/31/18 @ 17:50 by Kings Holm DO) Upper GI bleed (Acute) Acute blood loss anemia (Acute) Ventricular tachycardia (Acute) Subjective: Patient reports no abdominal pain. He has no nausea or vomiting. He did have another black stool yesterday. - Physical Exam General: Alert, Oriented x3, Cooperative Neck: No JVD Lungs: Normal air movement Cardiovascular: Regular rate, Regular Rhythm Abdomen: Soft, Non Tender, Non-Distended Vital Signs Temp Pulse Resp BP Pulse Ox 98.0 F 73 17 144/66 H 96 11/02/18 09:51 11/02/18 11:29 11/02/18 09:51 11/02/18 09:51 11/02/18 09:51 Oxygen Flow Rate (L/min) [3] 4 Oxygen Flow Rate (L/min) [2] 4 Oxygen Flow Rate (L/min) [1 ( 4 Initial Baseline)] Oxygen Flow Rate (L/min) 2 Oxygen Delivery Method [4] Nasal Cannula Oxygen Delivery Method [3] Nasal Cannula Oxygen Delivery Method [2] Nasal Cannula Oxygen Delivery Method [1 ( Nasal Cannula Initial Baseline)] Oxygen Delivery Method Room Air Weight: 188 lb 7.924 oz Body Mass Index (BMI) 25.5 Intake and Output for Last 24 Hours 10/31/18 11/01/18 11/02/18 23:59 23:59 23:59 Intake Total 750 / 750 4903 / 4903 1353 / 1353 Output Total 475 / 475 1400 / 1400 1675 / 1675 Balance 275 / 275 3503 / 3503 -322 / -322 Microbiology Past 72 Hours 10/31/18 15:25 Stool Occult Blood (ROBBIN) - Final Stool Occult Blood Positive Laboratory Tests Past 24 Hrs 10/31/18 11/01/18 11/02/18 15:20 19:15 05:04 Hgb 8.6 L Hct 26.9 L Sodium 145 Potassium 4.2 Chloride 119 H Carbon Dioxide 19.0 L Anion Gap 7 BUN 56 H Creatinine 2.31 H Estim Creat Clear Calc 27.99 Est GFR (MDRD) Af Amer 35 L Est GFR (MDRD) Non-Af 29 L BUN/Creatinine Ratio 24.2 H Glucose 91 Calcium 8.0 L Iron TIBC Iron Saturation TSH 0.59 Crossmatch See Detail 11/02/18 11/02/18 05:04 05:04 Hgb 8.5 L Hct 27.0 L Sodium Potassium Chloride Carbon Dioxide Anion Gap BUN Creatinine Estim Creat Clear Calc Est GFR (MDRD) Af Amer Est GFR (MDRD) Non-Af BUN/Creatinine Ratio Glucose Calcium Iron 28 L TIBC 338 Iron Saturation 8.3 L TSH Crossmatch Medical Necessity - Tobacco Use Smoking Status: Former smoker Tobacco Use: Non-smoker Assessment/Plan All Active Problems (Last Updated 10/31/18 @ 17:50 by Kings Holm DO) Upper GI bleed (Acute) Acute blood loss anemia (Acute) Ventricular tachycardia (Acute) 78-year-old male with upper GI bleed 1. Patient's hemoglobin is stable since transfusion. He said he did have one more black stool with no abdominal pain or nausea or vomiting. He is tolerating a regular diet and he was started on Carafate as well as a PPI. At this time the patient's hemoglobin seems stable from yesterday and he is being treated for stomach ulcers. If his hemoglobin continues to down trend colonoscopy can be considered but he is having no blood per stool only melena. Patient is currently being treated for his vtach and his heart is being worked up. He was receiving a carotid ultrasound last on this morning. 2. At the time I believe the bleeding has stopped. There was no active bleeding on EGD. If the patient continues to down trend I would consider repeat endoscopy. Dudley Aguilar MD Pager: [facility] [address] [place] [address], [address] [place] [address] Office:
--- NOTE | 2018-11-02 18:15 | PCM.PN.CARD ---
Subjectve: The patient denies ongoing chest discomfort. He denies any acute shortness of breath or dyspnea. He has not felt palpitations. He states overall he is feeling better. Objective: Vital Signs Temp Pulse Resp BP Pulse Ox 98.0 F 76 17 144/66 H 96 11/02/18 09:51 11/02/18 15:56 11/02/18 09:51 11/02/18 09:51 11/02/18 09:51 Oxygen Flow Rate (L/min) [3] 4 Oxygen Flow Rate (L/min) [2] 4 Oxygen Flow Rate (L/min) [1 ( 4 Initial Baseline)] Oxygen Flow Rate (L/min) 2 Oxygen Delivery Method [4] Nasal Cannula Oxygen Delivery Method [3] Nasal Cannula Oxygen Delivery Method [2] Nasal Cannula Oxygen Delivery Method [1 ( Nasal Cannula Initial Baseline)] Oxygen Delivery Method Room Air Weight: 188 lb 7.924 oz Body Mass Index (BMI) 25.5 Intake and Output for Last 24 Hours 10/31/18 11/01/18 11/02/18 23:59 23:59 23:59 Intake Total 750 / 750 4903 / 4903 2935 / 2935 Output Total 475 / 475 1400 / 1400 1950 / 1950 Balance 275 / 275 3503 / 3503 985 / 985 General: Awake, Alert, Oriented x 3, Cooperative, No Acute Distress HEENT: Atraumatic, Normocephalic, PERRL, EOMI, Sclera Non Icteric Oral: Moist Mucosa Neck: Supple, Good ROM, No JVD Lungs: Clear to auscultation Cardiovascular: Regular Rhythm, Normal S1, Normal S2 Vascular: R Carotid Artery Bruits Abdomen: Bowel Sounds Present, Soft, Non Tender Extremities: Trace RLE Edema, Trace LLE Edema Psych/Mental Status: Appropriate 11/01/18 19:15: Hgb 8.6 L, Hct 26.9 L 11/02/18 05:04: Sodium 145, Potassium 4.2, Chloride 119 H, Carbon Dioxide 19.0 L, Anion Gap 7, BUN 56 H, Creatinine 2.31 H, Est GFR (MDRD) Af Amer 35 L, Est GFR (MDRD) Non-Af 29 L, BUN/Creatinine Ratio 24.2 H, Glucose 91, Calcium 8.0 L 11/02/18 05:04: Hgb 8.5 L, Hct 27.0 L 11/02/18 05:04: Iron 28 L, TIBC 338, Iron Saturation 8.3 L Rhythm: Sinus rhythm; one episode of an 8 beat irregular wide-complex tachycardia Medical Necessity - Tobacco Use Smoking Status: Former smoker Tobacco Use: Non-smoker Assessment/Plan 1. Nonsustained wide-complex tachycardia concerning for nonsustained VT At the present time the patient continues to be monitored. He is continuing beta-samia therapy. Pending upon his clinical course he may need to be considered for antiarrhythmic therapy which would be a consideration for amiodarone therapy. He is also been receiving PRBCs to increase his hemoglobin level. Hopefully his hemoglobin level will improve. If it improves and he remains otherwise stable then he will proceed with further cardiovascular screening with a pharmacologic stress nuclear imaging study. Depending upon the results he may or may not need consideration for diagnostic cardiac catheterization at some point in time depending upon his upper GI bleeding issues/anemia and his renal insufficiency. 2. Peripheral artery disease He does have peripheral artery disease. On examination he has a right carotid artery bruit. He has been recently diagnosed by renal artery duplex study with bilateral renal artery stenosis. He is also had a AAA in the past which required surgical repair. Thus this does increase his risk for cardiovascular disease. He will need to continue risk factor evaluation care as tolerated. 3. Upper GI bleed with associated anemia This does make it difficult to place him on antiplatelet and anticoagulants from a cardiovascular standpoint. Thus it makes it challenging for him to be evaluated in the cardiac catheterization laboratory if needed. The present time he will continue medical management. Second unit of PRBCs. 4. Chronic renal insufficiency He may have an element of acute on chronic renal insufficiency from decreased oral intake recently. However he does have chronic renal insufficiency and follows with Dr. Castillo of nephrology. He states he has been told that he may require dialysis. This does make it challenging if he would require invasive studies with IV contrast that could lead to an IV contrast related nephropathy and subsequent renal failure, etc. 5. Hypertension He will continue medical management as deemed appropriate. 6. DVT status post IVC filter placement The patient is states this occurred following his abdominal aortic aneurysm repair in 2005. He was treated with IVC filter placement at the time. Comment: The above is been discussed with the patient and the [facility] hospitalist group. This note was generated with Dragon dictation software. It may contain incorrect words, spelling, and punctuation that were not noted in checking the note before signing.
[2018-11-03 02:59] VITALS: PULSE 68
[2018-11-03 03:32] VITALS: BP 142/49; PULSE 77; RESP 18; TEMP 37.2; O2SAT 96
[2018-11-03 05:36] LABS: Absolute Lymphocyte Count 0.73 X10^3/ul (0.83-4.51); Absolute Neutrophil Count 4.2 X10^3/uL (2.0-7.7); Basophil# 0.02 X10^3/uL; Basophil% 0.3 % (0-1); Eosinophil# 0.37 X10^3/uL; Eosinophils% 6.3 % (0-5); Hematocrit 30.1 % (40-54); Hemoglobin 9.8 g/dl (13.0-16.5); Lymphocyte # 0.73 X10^3/ul (4.0); Lymphocyte % 12.4 % (19-41); Mean Corp Hgb Conc 32.6 g/gl (32-36); Mean Corpuscular Hgb 27.2 pg (27.0-32.0); Mean Corpuscular Volume 83.6 fL (80-94); Mean Platelet Vol. 10.6 fl (6.2-12.0); Monocyte# 0.57 X10^3/uL; Monocyte% 9.7 % (0-10); Neutrophil # 4.21 X10^3/uL (2.7-7.7); Neutrophil % 71.3 % (47-70); Platelet Count 198 K/mm3 (150-450); RBC Distribution Width CV 17.5 % (11.6-14.6); RBC Distribution Width SD 51.9 fl (35.1-43.9); White Blood Count 5.9 K/mm3 (4.4-11.0)
[2018-11-03 05:38] LABS: POSITIVE COUNT NO; POSITIVE DIFFERENTIAL NO; POSITIVE MORPHOLOGY NO
[2018-11-03 05:45] VITALS: BP 157/69; PULSE 68; RESP 18; TEMP 37; O2SAT 94
[2018-11-03 05:46] LABS: Anion Gap 6 (5-15); BUN 42 mg/dL (7-18); BUN/Creat Ratio 18.7 RATIO (10-20); Calcium,Total 8.3 mg/dL (8.5-10.1); Chloride 120 mmol/L (98-107); Creatinine, Serum 2.25 mg/dL (0.70-1.30); EST Glomerular Filtration Rate 30 mL/min (>60); Est Glom Filt Rate - Afr Amer 36 mL/min (>60); Estimated Creatinine Clearance 28.74 ml/min; Glucose 90 mg/dL (74-106); Potassium 4.1 mmol/L (3.5-5.1); Sodium Level 147 mmol/L (136-145)
[2018-11-03] MEDS: Losartan Potassium 50 MG Tablet PO (05:48)
[2018-11-03 05:50] LABS: International Normalized Ratio 1.2; Prothrombin Time (Protime)PT. 15.1 SECONDS (11.7-14.9)
[2018-11-03 05:51] LABS: Partial Thromboplast Time 31.3 Seconds (24.1-36.2)
[2018-11-03] MEDS: 0.9% Normal Saline 1,000 ML 125 ML IV (05:51)
--- NOTE | 2018-11-03 05:55 | EKG12_ITS ---
Test Reason : AM EKG Blood Pressure : / mmHG Vent. Rate : 067 BPM Atrial Rate : 067 BPM P-R Int : 210 ms QRS Dur : 082 ms QT Int : 406 ms P-R-T Axes : 030 -23 -12 degrees QTc Int : 429 ms Sinus rhythm with 1st degree A-V block with occasional Premature ventricular complexes Voltage criteria for left ventricular hypertrophy Abnormal ECG When compared with ECG of 01-NOV-2018 10:49, Premature ventricular complexes are now Present Confirmed by BRETT BLISS, CHEPE ([id number]), image editor NEEL DON ([id number]) on 11/07/2018 5:14:36 PM Referred By: Kings Holm Confirmed By:CHEPE WEST MD
[2018-11-03 06:27] VITALS: PULSE 87
--- NOTE | 2018-11-03 09:03 | STRESSREP_ITS ---
Stress Test Report Date: 11-03-18 Procedure: Pharmacologic stress nuclear imaging study Indications: Ventricular tachycardia Consent: Per the patient Procedure: The patient underwent pharmacologic (Regadenoson) evaluation with a peak heart rate of 95 beats per minute (67 %predicted maximal heart rate) and a peak blood pressure of 168/88 mmHg. The baseline ECG demonstrated normal sinus rhythm; PVCs; nonspecific ST segment abnormality. The peak pharmacologic ECG demonstrated with continued nonspecific ST segment abnormality. There were occasional PVCs pretest, during infusion, and recovery. There was no complaint of chest discomfort during pharmacologic infusion or recovery. The examination was discontinued secondary to completion of protocol. Impression: 1. Pharmacologic (Regadenoson) evaluation 2. Peak pharmacologic ECG with continued nonspecific ST segment abnormalities. 3. There were occasional PVCs pretest, during infusion, and recovery. 4. Nuclear images pending Myocardial perfusion imaging study: Technique: The patient was injected with 11.8 millicuries of technetium 99m Cardiolite and subsequently rest SPECT Cardiolite nuclear imaging was obtained in the horizontal long, vertical long, and short axis views. The patient underwent pharmacologic (Regadenoson) evaluation with a peak heart rate of 95 beats per minute (67 % percent predicted maximal heart rate) and a peak blood pressure of 168/88 mmHg. The patient was injected with 34.2 millicuries of technetium 99m Cardiolite and subsequently stress SPECT Cardiolite nuclear imaging was obtained in the horizontal long, vertical long, and short axis views. Interpretation: Rest and stress SPECT Cardiolite nuclear imaging status post realignment and normalization correction demonstrate relative uniform tracer uptake and myocardial perfusion appearing within normal limits. A gated Cardiolite study at peak stress was not obtained. Impression: 1. Rest and stress SPECT Cardiolite nuclear imaging demonstrate relative uniform tracer uptake and myocardial perfusion appearing within normal limits. 2. A gated Cardiolite study at peak stress was not obtained. This note was generated with TechniScan[employer] software. It may contain incorrect words, spelling, and punctuation that were not noted in checking the note before signing.
[2018-11-03 09:16] VITALS: BP 138/55; PULSE 65; RESP 16; TEMP 36.9; O2SAT 98
[2018-11-03 09:19] VITALS: PULSE 65
[2018-11-03] MEDS: hydroCHLOROthiazide 12.5mg 12.5 MG PO (09:19)
[2018-11-03] MEDS: Iron Polysaccharide Complex 150 MG CAPSULE PO (09:19)
[2018-11-03] MEDS: Pantoprazole Sodium 40 MG Tablet PO (09:19)
[2018-11-03] MEDS: Metoprolol(XL)Succ 50 MG Tablet PO (09:19)
[2018-11-03] MEDS: amLODIPine 5 MG Tablet PO (09:19)
[2018-11-03] MEDS: Multivitamins,Ther W-Minerals Tablet 1 TABLET PO (09:20)
[2018-11-03] MEDS: Omega-3 Acid Ethyl Esters 1 GM Capsule PO (09:20)
--- NOTE | 2018-11-03 11:16 | PCM.DC ---
- Discharge Diagnoses Current Active Problems: Current Active and Chronic Problems (Last Updated 10/31/18 @ 17:50 by Kings Holm DO) Upper GI bleed (Acute) Acute blood loss anemia (Acute) DVT (deep venous thrombosis) (Chronic) Presence of IVC filter (Chronic) CKD (chronic kidney disease), stage IV (Chronic) HTN (hypertension) (Chronic) Ventricular tachycardia (Acute) PAD (peripheral artery disease) (Chronic) You will use the following diet at home:: Cardiac Discharge Activity: Return to Normal Activity Call your doctor if you observe: Shortness of breath, Dizziness, Fainting spells, Chest pain Allergies/Adverse Reactions: Allergies No Known Allergies Allergy (Verified 10/31/18 14:55) Medications to take at Discharge Amlodipine Besylate 5 mg PO DAILY 10/31/18 Losartan/Hydrochlorothiazide [Losartan-Hctz 50-12.5 mg Tab] 1 tab PO BID 10/31/18 Metoprolol Succinate [Toprol Xl] 50 mg PO DAILY 10/31/18 Multivit-Min/FA/Lycopen/Lutein [Centrum Silver Men Tablet] 1 tab PO DAILY 10/31/18 [place]-3S/Dha/Epa/Fish Oil/D3 [[place]-3 + D Softgel] 1 each PO DAILY 10/31/18 Aspirin E.C. [Ecotrin] 81 mg PO DAILY@0800 #30 tablet 11/03/18 Iron Polysaccharide Complex [Ferrex 150] 150 mg PO DAILYCM #30 capsule 11/03/18 Pantoprazole Sodium [Protonix] 40 mg PO BID #60 tablet 11/03/18 Sucralfate [Carafate] 1 gm PO 1HR_ACHS #120 tablet 11/03/18 The following prescriptions were given: Aspirin E.C. [Ecotrin] 81 mg PO DAILY@0800 #30 tablet Iron Polysaccharide Complex [Ferrex 150] 150 mg PO DAILYCM #30 capsule Sucralfate [Carafate] 1 gm PO 1HR_ACHS #120 tablet Pantoprazole Sodium [Protonix] 40 mg PO BID #60 tablet Primary Care Physician: Juliana Jauregui DO [Primary Care Provider] - Please follow up with your Primary Care Physician in: 1 Week Test Results: Test results from this visit will be discussed in further detail at your follow-up appointment, if applicable. Please Follow Up With: Casie Carson MD - Nephrology When: As scheduled Please Follow Up With: Dudley Aguilar MD When: 1 Week Proposed Discharge Date: 11/03/18
--- NOTE | 2018-11-03 11:23 | DCINST_ITS ---
- Discharge Diagnoses Current Active Problems: Current Active and Chronic Problems (Last Updated 10/31/18 @ 17:50 by Kings Holm DO) Upper GI bleed (Acute) Acute blood loss anemia (Acute) DVT (deep venous thrombosis) (Chronic) Presence of IVC filter (Chronic) CKD (chronic kidney disease), stage IV (Chronic) HTN (hypertension) (Chronic) Ventricular tachycardia (Acute) PAD (peripheral artery disease) (Chronic) You will use the following diet at home:: Cardiac Discharge Activity: Return to Normal Activity Call your doctor if you observe: Shortness of breath, Dizziness, Fainting spells, Chest pain Allergies/Adverse Reactions: Allergies No Known Allergies Allergy (Verified 10/31/18 14:55) Medications to take at Discharge Amlodipine Besylate 5 mg PO DAILY 10/31/18 Losartan/Hydrochlorothiazide [Losartan-Hctz 50-12.5 mg Tab] 1 tab PO BID 10/31/18 Metoprolol Succinate [Toprol Xl] 50 mg PO DAILY 10/31/18 Multivit-Min/FA/Lycopen/Lutein [Centrum Silver Men Tablet] 1 tab PO DAILY 10/31/18 [place]-3S/Dha/Epa/Fish Oil/D3 [[place]-3 + D Softgel] 1 each PO DAILY 10/31/18 Aspirin E.C. [Ecotrin] 81 mg PO DAILY@0800 #30 tablet 11/03/18 Iron Polysaccharide Complex [Ferrex 150] 150 mg PO DAILYCM #30 capsule 11/03/18 Pantoprazole Sodium [Protonix] 40 mg PO BID #60 tablet 11/03/18 Sucralfate [Carafate] 1 gm PO 1HR_ACHS #120 tablet 11/03/18 The following prescriptions were given: Aspirin E.C. [Ecotrin] 81 mg PO DAILY@0800 #30 tablet Iron Polysaccharide Complex [Ferrex 150] 150 mg PO DAILYCM #30 capsule Sucralfate [Carafate] 1 gm PO 1HR_ACHS #120 tablet Pantoprazole Sodium [Protonix] 40 mg PO BID #60 tablet Primary Care Physician: Juliana Jauregui DO [Primary Care Provider] - Please follow up with your Primary Care Physician in: 1 Week Test Results: Test results from this visit will be discussed in further detail at your follow- up appointment, if applicable. Please Follow Up With: Casie Carson MD - Nephrology When: As scheduled Please Follow Up With: Dudley Aguilar MD When: 1 Week Proposed Discharge Date: 11/03/18
--- NOTE | 2018-11-03 12:21 | PN.CARD_ITS ---
Subjectve: The patient was evaluated earlier this day. He was doing well with no acute symptoms. He underwent pharmacologic stress nuclear imaging study. He had no acute findings. Objective: Vital Signs Temp Pulse Resp BP Pulse Ox 98.4 F 65 16 138/55 H 98 11/03/18 09:16 11/03/18 09:19 11/03/18 09:16 11/03/18 09:16 11/03/18 09:16 Oxygen Flow Rate (L/min) [3] 4 Oxygen Flow Rate (L/min) [2] 4 Oxygen Flow Rate (L/min) [1 ( 4 Initial Baseline)] Oxygen Flow Rate (L/min) 2 Oxygen Delivery Method [4] Nasal Cannula Oxygen Delivery Method [3] Nasal Cannula Oxygen Delivery Method [2] Nasal Cannula Oxygen Delivery Method [1 ( Nasal Cannula Initial Baseline)] Oxygen Delivery Method Room Air Weight: 188 lb 7.924 oz Body Mass Index (BMI) 25.5 Intake and Output for Last 24 Hours 11/01/18 11/02/18 11/03/18 23:59 23:59 23:59 Intake Total 4903 / 4903 3807 / 3807 691 / 691 Output Total 1400 / 1400 2625 / 2625 975 / 975 Balance 3503 / 3503 1182 / 1182 -284 / -284 General: Awake, Alert, Oriented x 3, Cooperative, No Acute Distress HEENT: Atraumatic, Normocephalic, PERRL, EOMI, Sclera Non Icteric Oral: Moist Mucosa Neck: Supple, Good ROM, No JVD Lungs: Clear to auscultation Cardiovascular: Regular Rhythm, Premature Ectopic Beats, Normal S1, Normal S2 Vascular: R Carotid Artery Bruits Abdomen: Bowel Sounds Present, Soft, Non Tender Extremities: No edema Neurological: No Focal Motor or Sensory Deficit Psych/Mental Status: Appropriate 11/03/18 05:15: WBC 5.9, RBC 3.60 L, Hgb 9.8 L, Hct 30.1 L, MCV 83.6, MCH 27.2, MCHC 32.6, RDW 17.5 H, RDW Differential 51.9 H, Plt Count 198, MPV 10.6, Immature Gran % (Auto) 0.000, Neut % (Auto) 71.3 H, Lymph % (Auto) 12.4 L, [place] % (Auto) 9.7, Eos % (Auto) 6.3 H, Baso % (Auto) 0.3, Absolute Neuts (auto) 4.2, Total Counted Not Reportable 11/03/18 05:15: Sodium 147 H, Potassium 4.1, Chloride 120 H, Carbon Dioxide 21.0, Anion Gap 6, BUN 42 H, Creatinine 2.25 H, Est GFR (MDRD) Af Amer 36 L, Est GFR (MDRD) Non-Af 30 L, BUN/Creatinine Ratio 18.7, Glucose 90, Calcium 8.3 L 11/03/18 05:15: PT 15.1 H, INR 1.2, APTT 31.3 Rhythm: Sinus rhythm; PVCs Pharmacologic stress nuclear imaging study: Stress Test Report Date: 11-03-18 Procedure: Pharmacologic stress nuclear imaging study Indications: Ventricular tachycardia Consent: Per the patient Procedure: The patient underwent pharmacologic (Regadenoson) evaluation with a peak heart rate of 95 beats per minute (67 %predicted maximal heart rate) and a peak blood pressure of 168/88 mmHg. The baseline ECG demonstrated normal sinus rhythm; PVCs; nonspecific ST segment abnormality. The peak pharmacologic ECG demonstrated with continued nonspecific ST segment abnormality. There were occasional PVCs pretest, during infusion, and recovery. There was no complaint of chest discomfort during pharmacologic infusion or recovery. The examination was discontinued secondary to completion of protocol. Impression: 1. Pharmacologic (Regadenoson) evaluation 2. Peak pharmacologic ECG with continued nonspecific ST segment abnormalities. 3. There were occasional PVCs pretest, during infusion, and recovery. 4. Nuclear images pending Myocardial perfusion imaging study: Technique: The patient was injected with 11.8 millicuries of technetium 99m Cardiolite and subsequently rest SPECT Cardiolite nuclear imaging was obtained in the horizontal long, vertical long, and short axis views. The patient underwent pharmacologic (Regadenoson) evaluation with a peak heart rate of 95 beats per minute (67 % percent predicted maximal heart rate) and a peak blood pressure of 168/88 mmHg. The patient was injected with 34.2 millicuries of technetium 99m Cardiolite and subsequently stress SPECT Cardiolite nuclear imaging was obtained in the horizontal long, vertical long, and short axis views. Interpretation: Rest and stress SPECT Cardiolite nuclear imaging status post realignment and nor malization correction demonstrate relative uniform tracer uptake and myocardial perfusion appearing within normal limits. A gated Cardiolite study at peak stress was not obtained. Impression: 1. Rest and stress SPECT Cardiolite nuclear imaging demonstrate relative uniform tracer uptake and myocardial perfusion appearing within normal limits. 2. A gated Cardiolite study at peak stress was not obtained. Medical Necessity - Tobacco Use Smoking Status: Former smoker Tobacco Use: Non-smoker Assessment/Plan 1. Nonsustained wide-complex tachycardia concerning for nonsustained VT At the present time the patient continues to be monitored. He is continuing beta-samia therapy. He has undergone further evaluation with a oncologic stress nuclear imaging study. This appeared to be negative for obvious evidence of myocardial ischemia. Based upon his previous echocardiographic study he appears to have overall preserved LV systolic function. At the present time he will continue medical therapy with his beta-samia. He will be asked to have future outpatient follow-up to reassess his status. 2. Peripheral artery disease He does have peripheral artery disease. On examination he has a right carotid artery bruit. This is been evaluated with a carotid duplex study. Based on report he has less than 50% stenosis bilaterally. He will need to continue risk factor evaluation care and follow-up as deemed appropriate. He has been recently diagnosed by renal artery duplex study with bilateral renal artery stenosis. He is also had a AAA in the past which required surgical repair. 3. Upper GI bleed with associated anemia This does make it difficult to place him on antiplatelet and anticoagulants from a cardiovascular standpoint. Thus it makes it challenging for him to be evaluated in the cardiac catheterization laboratory if needed. The present time he will continue medical management. He has received 2 units of PRBCs. His hemoglobin has improved. He states he does feel better. His states he looks better. 4. Chronic renal insufficiency He may have an element of acute on chronic renal insufficiency from decreased oral intake recently. However he does have chronic renal insufficiency and follows with Dr. Castillo of nephrology. He states he has been told that he may require dialysis. This does make it challenging if he would require invasive studies with IV contrast that could lead to an IV contrast related nephropathy and subsequent renal failure, etc. 5. Hypertension He will continue medical management as deemed appropriate. 6. DVT status post IVC filter placement The patient is states this occurred following his abdominal aortic aneurysm repair in 2005. He was treated with IVC filter placement at the time. Comment: The above is been discussed with the patient and the [facility] hospitalist group. This note was generated with [employer] dictation software. It may contain incorrect words, spelling, and punctuation that were not noted in checking the note before signing.
--- NOTE | 2018-11-03 12:21 | PCM.DC.SUM ---
<Vera Mishra - Last Filed: 11/03/18 13:04> Discharge Date and Diagnosis Date of Admission: 10/31/18 Date of Discharge: 11/03/18 - Primary Discharge Diagnosis 1. Acute blood loss anemia secondary to acute upper GI bleed 2. Nonsustained wide-complex tachycardia 3. History of DVTs status post IVC filter placement 4. Chronic kidney disease stage IV, gated by renal artery stenosis 5. Hypertension 6. PAD 7. GERD/history of erosive esophagitis 8. History AAA repair 9. Mild carotid artery disease - Secondary Discharge Diagnosis Chronic Problems (Last Updated 10/31/18 @ 17:50 by Kings Holm DO) DVT (deep venous thrombosis) (Chronic) Presence of IVC filter (Chronic) CKD (chronic kidney disease), stage IV (Chronic) HTN (hypertension) (Chronic) PAD (peripheral artery disease) (Chronic) Hospital Course and Treatment Imaging Results: Dr. Trujillo- Cardiology Dr. Aguilar- General Surgery Operations: None Procedures: 2-D Echocardiogram, EGD, Stress test Summary of Care Provided: The patient is a 78 year old M admitted 10/31/18 due to black tarry stools. 1. Acute blood loss anemia secondary to acute upper GI bleed- Dr. Aguilar consulted. EGD 10/31/18 showed nonbleeding gastric ulcers with no stigmata of bleeding. Patient received 2 units PRBC. Hemoglobin stable. Patient will continue Carafate and PPI at discharge. Iron supplementation added as well. General surgery okay with daily baby aspirin at discharge. Follow-up with Dr. Aguilar in 1 week. Possible repeat endoscopy and or colonoscopy as outpatient. Follow-up with primary care physician 1 week. 2. Nonsustained Vtach-patient was noted to have wide-complex tachycardia lasting approximately [address] Trujillo, cardiology consulted. Patient will continue beta-samia regimen. He underwent nuclear stress test which was negative for ischemia. Echocardiogram showed an EF of 65%, mild mitral valve insufficiency, trivial tricuspid valve insufficiency, trivial pulmonic valve insufficiency. Suspect secondary to acute blood loss anemia, #1. Patient will continue to follow-up with cardiology on outpatient basis. 3. History of DVTs status post IVC filter placement 4. Chronic kidney disease stage IV, gated by renal artery stenosis-stable, continue outpatient follow-up with nephrology. 5. Hypertension-stable, continue home beta-samia regimen. 6. PAD-home aspirin regimen decreased to 81 mg daily. Not on statin. 7. GERD/history of erosive esophagitis-PPI and Carafate as noted above. 8. History AAA repair 9. Mild carotid artery disease-carotid artery duplex ultrasound with less than 50% stenosis bilaterally. Recommend fasting lipid panel as outpatient with possible addition of statin given PAD and mild carotid artery disease. Patient seen and examined prior to discharge. Physical assessment as noted below. Patient is stable for discharge with follow up recommendations as noted above. This patient was seen by DEVI Prado under the supervision of Dr. Dockery. - Physical Exam Vital Signs Temp Pulse Resp BP Pulse Ox 98.4 F 65 16 138/55 H 98 11/03/18 09:16 11/03/18 09:19 11/03/18 09:16 11/03/18 09:16 11/03/18 09:16 Oxygen Flow Rate (L/min) [3] 4 Oxygen Flow Rate (L/min) [2] 4 Oxygen Flow Rate (L/min) [1 ( 4 Initial Baseline)] Oxygen Flow Rate (L/min) 2 Oxygen Delivery Method [4] Nasal Cannula Oxygen Delivery Method [3] Nasal Cannula Oxygen Delivery Method [2] Nasal Cannula Oxygen Delivery Method [1 ( Nasal Cannula Initial Baseline)] Oxygen Delivery Method Room Air Weight: 188 lb 7.924 oz Body Mass Index (BMI) 25.5 Intake and Output for Last 24 Hours 11/01/18 11/02/18 11/03/18 23:59 23:59 23:59 Intake Total 4903 / 4903 3807 / 3807 691 / 691 Output Total 1400 / 1400 2625 / 2625 975 / 975 Balance 3503 / 3503 1182 / 1182 -284 / -284 Microbiology Past 72 Hours 10/31/18 15:25 Stool Occult Blood (ROBBIN) - Final Stool Occult Blood Positive Laboratory Tests Past 24 Hrs 10/31/18 10/31/18 11/03/18 15:20 16:20 05:15 WBC 5.9 RBC 3.60 L Hgb 9.8 L Hct 30.1 L MCV 83.6 MCH 27.2 MCHC 32.6 RDW 17.5 H RDW Differential 51.9 H Plt Count 198 MPV 10.6 Immature Gran % (Auto) 0.000 Neut % (Auto) 71.3 H Lymph % (Auto) 12.4 L [place] % (Auto) 9.7 Eos % (Auto) 6.3 H Baso % (Auto) 0.3 Absolute Neuts (auto) 4.2 Absolute Lymphs (auto) 0.73 L Total Counted Not Reportable PT INR APTT Sodium Potassium Chloride Carbon Dioxide Anion Gap BUN Creatinine Estim Creat Clear Calc Est GFR (MDRD) Af Amer Est GFR (MDRD) Non-Af BUN/Creatinine Ratio Glucose Calcium Crossmatch See Detail See Detail 11/03/18 11/03/18 05:15 05:15 WBC RBC Hgb Hct MCV MCH MCHC RDW RDW Differential Plt Count MPV Immature Gran % (Auto) Neut % (Auto) Lymph % (Auto) [place] % (Auto) Eos % (Auto) Baso % (Auto) Absolute Neuts (auto) Absolute Lymphs (auto) Total Counted PT 15.1 H INR 1.2 APTT 31.3 Sodium 147 H Potassium 4.1 Chloride 120 H Carbon Dioxide 21.0 Anion Gap 6 BUN 42 H Creatinine 2.25 H Estim Creat Clear Calc 28.74 Est GFR (MDRD) Af Amer 36 L Est GFR (MDRD) Non-Af 30 L BUN/Creatinine Ratio 18.7 Glucose 90 Calcium 8.3 L Crossmatch Discharge Diet: Low fat/ Low Cholesterol Discharge Activity: Return to Normal Activity Call your doctor if you observe: Shortness of breath, Dizziness, Fainting spells, Chest pain Home Medications: Medications to take at Discharge Amlodipine Besylate 5 mg PO DAILY 10/31/18 Losartan/Hydrochlorothiazide [Losartan-Hctz 50-12.5 mg Tab] 1 tab PO BID 10/31/18 Metoprolol Succinate [Toprol Xl] 50 mg PO DAILY 10/31/18 Multivit-Min/FA/Lycopen/Lutein [Centrum Silver Men Tablet] 1 tab PO DAILY 10/31/18 [place]-3S/Dha/Epa/Fish Oil/D3 [[place]-3 + D Softgel] 1 each PO DAILY 10/31/18 Aspirin E.C. [Ecotrin] 81 mg PO DAILY@0800 #30 tab 11/03/18 Iron Polysaccharide Complex [Ferrex 150] 150 mg PO DAILYCM #30 cap 11/03/18 Pantoprazole Sodium [Protonix] 40 mg PO BID #60 tab 11/03/18 Sucralfate [Carafate] 1 gm PO 1HR_ACHS #120 tab 11/03/18 Following Prescrptions Were Given to Patient: Aspirin E.C. [Ecotrin] 81 mg PO DAILY@0800 #30 tab Iron Polysaccharide Complex [Ferrex 150] 150 mg PO DAILYCM #30 cap Sucralfate [Carafate] 1 gm PO 1HR_ACHS #120 tab Pantoprazole Sodium [Protonix] 40 mg PO BID #60 tab Primary Care Physician: Juliana Jauregui DO [Primary Care Provider] - Please follow up with your Primary Care Physician in: 1 Week Please Follow Up With: Casie Carson MD - Nephrology When: As scheduled Please Follow Up With: Dudley Aguilar MD When: 1 Week Please Follow Up With: Juancarlos Trujillo MD When: 1-2 Weeks Disposition: Home Minutes spent on discharge:: 35 Patient Condition:: Stable Medical Necessity - Tobacco Use Smoking Status: Former smoker Tobacco Use: Non-smoker Meaningful Use Info Meaningful Use Diagnoses (Choose all that apply): None applicable <Talya Dockery - Last Filed: 11/03/18 17:22> Discharge Date and Diagnosis - Secondary Discharge Diagnosis Chronic Problems (Last Updated 10/31/18 @ 17:50 by Kings Holm DO) DVT (deep venous thrombosis) (Chronic) Presence of IVC filter (Chronic) CKD (chronic kidney disease), stage IV (Chronic) HTN (hypertension) (Chronic) PAD (peripheral artery disease) (Chronic) Hospital Course and Treatment Summary of Care Provided: Patient seen by Vera QUINONEZ under my supervision The patient is an 78 year old M with past medical history as listed who was admitted with a complaint of black tarry stools. Hemoglobin was 9.1 on admission and he had positive Hemoccult stool. He did have a history of esophageal bleeding and bleeding ulcers of unclear location. General surgery was consulted and he had an EGD which showed no blood clots or stigmata of bleeding in the esophagus, stomach or duodenum; however had 2 shallow ulcers in the antrum of the stomach which were nonbleeding and without clots. Patient was started on sucralfate and PPI. He remained stable and was scheduled to be discharged the next day but he had a 28 beat run of V. tach. His electrolytes were WNL. Cardiology was consulted in light of his extensive cardiac history. He was transfused with 2 units of PRBCs. A 2D echo done showed EF of 65% and mild concentric left ventricular hypertrophy as well as mildly enlarged left atrium diastolic function was indeterminate. Cardiology reviewed patient and believe that the best management for patient would be a cardiac cath but in light of his recent GI bleed and chronic kidney disease, cardiac cath would not be done due to risk of worsening kidney disease and also patient could not be on antiplatelets due to his GI bleed. He had a stress test on 11/03/2018 which was negative. V. tach did not recur and patient remained stable. He was discharged on 11/03/2018 on a PPI and sucralfate. He is follow-up with cardiology and his primary care doctor as well as his senior director. Patient seen and examined prior to discharge. He had no complaints and felt well. Review of systems was otherwise negative. Labs and vitals reviewed. Home medications reviewed and reconciled. o/e: Vital Signs Height 6 ft Weight: 188 lb 7.924 oz Weight in Pounds 188.5 lbs Pulse Ox 98 Temperature 98.4 F Pulse Rate [4] 75 Pulse Rate [3] 77 Pulse Rate [2] 73 Pulse Rate [1 (Initial 64 Baseline)] Pulse Rate 65 Respiratory Rate [4] 29 Respiratory Rate [3] 18 Respiratory Rate [2] 29 Respiratory Rate [1 (Initial 21 Baseline)] Respiratory Rate 16 Blood Pressure [BP] 149/48 Blood Pressure [4] 115/72 Blood Pressure [3] 119/71 Blood Pressure [2] 183/73 Blood Pressure [1 (Initial 183/73 Baseline)] Blood Pressure 138/55 Blood Pressure Position [BP] Left Lateral Blood Pressure Position Supine General: Alert, Oriented x3, Cooperative HEENT: Atraumatic, PERRLA, EOMI, Normocephalic Neck: Supple, No JVD, Negative Carotid Bruits Lungs: Clear to auscultation, Normal air movement Cardiovascular: Regular rate, No murmurs Abdomen: Bowel Sounds Present, Soft, Non Tender Extremities: No edema, Capillary Refill Less than 3 Seconds Skin: No rashes, No breakdown Musculoskeletal: No Tenderness to Palpation of Joints or Extremities Neurological: Cranial nerves II-XII grossly intact Psych/Mental Status: Normal Affect, Appropriate, Alert and oriented to time, place, person, mood and affect Patient is to be discharged today. He is to follow with his PCP and credit card clerk in one week. He is to also follow up with his senior director. Rest of management as per Vera Mishra STITCHER HAND-C's note, which I have reviewed and endorse. - Physical Exam Vital Signs Temp Pulse Resp BP Pulse Ox 98.4 F 65 16 138/55 H 98 11/03/18 09:16 11/03/18 09:19 11/03/18 09:16 11/03/18 09:16 11/03/18 09:16 Oxygen Flow Rate (L/min) [3] 4 Oxygen Flow Rate (L/min) [2] 4 Oxygen Flow Rate (L/min) [1 ( 4 Initial Baseline)] Oxygen Flow Rate (L/min) 2 Oxygen Delivery Method [4] Nasal Cannula Oxygen Delivery Method [3] Nasal Cannula Oxygen Delivery Method [2] Nasal Cannula Oxygen Delivery Method [1 ( Nasal Cannula Initial Baseline)] Oxygen Delivery Method Room Air Weight: 188 lb 7.924 oz Body Mass Index (BMI) 25.5 Intake and Output for Last 24 Hours 11/01/18 11/02/18 11/03/18 23:59 23:59 23:59 Intake Total 4903 / 4903 3807 / 3807 691 / 691 Output Total 1400 / 1400 2625 / 2625 975 / 975 Balance 3503 / 3503 1182 / 1182 -284 / -284 Microbiology Past 72 Hours 10/31/18 15:25 Stool Occult Blood (ROBBIN) - Final Stool Occult Blood Positive Laboratory Tests Past 24 Hrs 10/31/18 10/31/18 11/03/18 15:20 16:20 05:15 WBC 5.9 RBC 3.60 L Hgb 9.8 L Hct 30.1 L MCV 83.6 MCH 27.2 MCHC 32.6 RDW 17.5 H RDW Differential 51.9 H Plt Count 198 MPV 10.6 Immature Gran % (Auto) 0.000 Neut % (Auto) 71.3 H Lymph % (Auto) 12.4 L [place] % (Auto) 9.7 Eos % (Auto) 6.3 H Baso % (Auto) 0.3 Absolute Neuts (auto) 4.2 Absolute Lymphs (auto) 0.73 L Total Counted Not Reportable PT INR APTT Sodium Potassium Chloride Carbon Dioxide Anion Gap BUN Creatinine Estim Creat Clear Calc Est GFR (MDRD) Af Amer Est GFR (MDRD) Non-Af BUN/Creatinine Ratio Glucose Calcium Crossmatch See Detail See Detail 11/03/18 11/03/18 05:15 05:15 WBC RBC Hgb Hct MCV MCH MCHC RDW RDW Differential Plt Count MPV Immature Gran % (Auto) Neut % (Auto) Lymph % (Auto) [place] % (Auto) Eos % (Auto) Baso % (Auto) Absolute Neuts (auto) Absolute Lymphs (auto) Total Counted PT 15.1 H INR 1.2 APTT 31.3 Sodium 147 H Potassium 4.1 Chloride 120 H Carbon Dioxide 21.0 Anion Gap 6 BUN 42 H Creatinine 2.25 H Estim Creat Clear Calc 28.74 Est GFR (MDRD) Af Amer 36 L Est GFR (MDRD) Non-Af 30 L BUN/Creatinine Ratio 18.7 Glucose 90 Calcium 8.3 L Crossmatch Code Visit Inpatient E&M: [id number] Disch Hosp
--- NOTE | 2018-11-03 12:33 | DS.PCM_ITS ---
Addendum entered and electronically signed by DEVI Prado 11/03/18 13:05: Code Visit Physical exam completed prior to discharge as noted: General: Alert, Oriented x3, Cooperative HEENT: Atraumatic, PERRLA, EOMI, Normocephalic Neck: Supple, No JVD, Negative Carotid Bruits Lungs: Clear to auscultation, Normal air movement Cardiovascular: Regular rhythm, regular rate, No murmurs Abdomen: Bowel Sounds Present, Soft, Non Tender Extremities: No edema, Capillary Refill Less than 3 Seconds Skin: No rashes, No breakdown Musculoskeletal: No Tenderness to Palpation of Joints or Extremities Neurological: Cranial nerves II-XII grossly intact Psych/Mental Status: Normal Affect, Appropriate, Alert and oriented to time, place, person, mood and affect Original Note: <Vera Mishra - Last Filed: 11/03/18 13:04> Discharge Date and Diagnosis Date of Admission: 10/31/18 Date of Discharge: 11/03/18 - Primary Discharge Diagnosis 1. Acute blood loss anemia secondary to acute upper GI bleed 2. Nonsustained wide-complex tachycardia 3. History of DVTs status post IVC filter placement 4. Chronic kidney disease stage IV, gated by renal artery stenosis 5. Hypertension 6. PAD 7. GERD/history of erosive esophagitis 8. History AAA repair 9. Mild carotid artery disease - Secondary Discharge Diagnosis Chronic Problems (Last Updated 10/31/18 @ 17:50 by Kings Holm DO) DVT (deep venous thrombosis) (Chronic) Presence of IVC filter (Chronic) CKD (chronic kidney disease), stage IV (Chronic) HTN (hypertension) (Chronic) PAD (peripheral artery disease) (Chronic) Hospital Course and Treatment Imaging Results: Dr. Trujillo- Cardiology Dr. Aguilar- General Surgery Operations: None Procedures: 2-D Echocardiogram, EGD, Stress test Summary of Care Provided: The patient is a 78 year old M admitted 10/31/18 due to black tarry stools. 1. Acute blood loss anemia secondary to acute upper GI bleed- Dr. Aguilar consulted. EGD 10/31/18 showed nonbleeding gastric ulcers with no stigmata of bleeding. Patient received 2 units PRBC. Hemoglobin stable. Patient will continue Carafate and PPI at discharge. Iron supplementation added as well. General surgery okay with daily baby aspirin at discharge. Follow-up with Dr. Aguilar in 1 week. Possible repeat endoscopy and or colonoscopy as outpatient. Follow-up with primary care physician 1 week. 2. Nonsustained Vtach-patient was noted to have wide-complex tachycardia lasting approximately [address] Trujillo, cardiology consulted. Patient will continue beta-samia regimen. He underwent nuclear stress test which was negative for ischemia. Echocardiogram showed an EF of 65%, mild mitral valve insufficiency, trivial tricuspid valve insufficiency, trivial pulmonic valve insufficiency. Suspect secondary to acute blood loss anemia, #1. Patient will continue to follow-up with cardiology on outpatient basis. 3. History of DVTs status post IVC filter placement 4. Chronic kidney disease stage IV, gated by renal artery stenosis-stable, continue outpatient follow-up with nephrology. 5. Hypertension-stable, continue home beta-samia regimen. 6. PAD-home aspirin regimen decreased to 81 mg daily. Not on statin. 7. GERD/history of erosive esophagitis-PPI and Carafate as noted above. 8. History AAA repair 9. Mild carotid artery disease-carotid artery duplex ultrasound with less than 50% stenosis bilaterally. Recommend fasting lipid panel as outpatient with possible addition of statin given PAD and mild carotid artery disease. Patient seen and examined prior to discharge. Physical assessment as noted below. Patient is stable for discharge with follow up recommendations as noted above. This patient was seen by DEVI Prado under the supervision of Dr. Dockery. - Physical Exam Vital Signs Temp Pulse Resp BP Pulse Ox 98.4 F 65 16 138/55 H 98 11/03/18 09:16 11/03/18 09:19 11/03/18 09:16 11/03/18 09:16 11/03/18 09:16 Oxygen Flow Rate (L/min) [3] 4 Oxygen Flow Rate (L/min) [2] 4 Oxygen Flow Rate (L/min) [1 ( 4 Initial Baseline)] Oxygen Flow Rate (L/min) 2 Oxygen Delivery Method [4] Nasal Cannula Oxygen Delivery Method [3] Nasal Cannula Oxygen Delivery Method [2] Nasal Cannula Oxygen Delivery Method [1 ( Nasal Cannula Initial Baseline)] Oxygen Delivery Method Room Air Weight: 188 lb 7.924 oz Body Mass Index (BMI) 25.5 Intake and Output for Last 24 Hours 0411/02/18 11/03/18 23:59 23:59 23:59 Intake Total 4903 / 4903 3807 / 3807 691 / 691 Output Total 1400 / 1400 2625 / 2625 975 / 975 Balance 3503 / 3503 1182 / 1182 -284 / -284 Microbiology Past 72 Hours 10/31/18 15:25 Stool Occult Blood (ROBBIN) - Final Stool Occult Blood Positive Laboratory Tests Past 24 Hrs 10/31/18 10/31/18 11/03/18 15:20 16:20 05:15 WBC 5.9 RBC 3.60 L Hgb 9.8 L Hct 30.1 L MCV 83.6 MCH 27.2 MCHC 32.6 RDW 17.5 H RDW Differential 51.9 H Plt Count 198 MPV 10.6 Immature Gran % (Auto) 0.000 Neut % (Auto) 71.3 H Lymph % (Auto) 12.4 L [place] % (Auto) 9.7 Eos % (Auto) 6.3 H Baso % (Auto) 0.3 Absolute Neuts (auto) 4.2 Absolute Lymphs (auto) 0.73 L Total Counted Not Reportable PT INR APTT Sodium Potassium Chloride Carbon Dioxide Anion Gap BUN Creatinine Estim Creat Clear Calc Est GFR (MDRD) Af Amer Est GFR (MDRD) Non-Af BUN/Creatinine Ratio Glucose Calcium Crossmatch See Detail See Detail 11/03/18 11/03/18 05:15 05:15 WBC RBC Hgb Hct MCV MCH MCHC RDW RDW Differential Plt Count MPV Immature Gran % (Auto) Neut % (Auto) Lymph % (Auto) [place] % (Auto) Eos % (Auto) Baso % (Auto) Absolute Neuts (auto) Absolute Lymphs (auto) Total Counted PT 15.1 H INR 1.2 APTT 31.3 Sodium 147 H Potassium 4.1 Chloride 120 H Carbon Dioxide 21.0 Anion Gap 6 BUN 42 H Creatinine 2.25 H Estim Creat Clear Calc 28.74 Est GFR (MDRD) Af Amer 36 L Est GFR (MDRD) Non-Af 30 L BUN/Creatinine Ratio 18.7 Glucose 90 Calcium 8.3 L Crossmatch Discharge Diet: Low fat/ Low Cholesterol Discharge Activity: Return to Normal Activity Call your doctor if you observe: Shortness of breath, Dizziness, Fainting spells, Chest pain Home Medications: Medications to take at Discharge Amlodipine Besylate 5 mg PO DAILY 10/31/18 Losartan/Hydrochlorothiazide [Losartan-Hctz 50-12.5 mg Tab] 1 tab PO BID 10/31/18 Metoprolol Succinate [Toprol Xl] 50 mg PO DAILY 10/31/18 Multivit-Min/FA/Lycopen/Lutein [Centrum Silver Men Tablet] 1 tab PO DAILY 10/31/18 [place]-3S/Dha/Epa/Fish Oil/D3 [[place]-3 + D Softgel] 1 each PO DAILY 10/31/18 Aspirin E.C. [Ecotrin] 81 mg PO DAILY@0800 #30 tab 11/03/18 Iron Polysaccharide Complex [Ferrex 150] 150 mg PO DAILYCM #30 cap 11/03/18 Pantoprazole Sodium [Protonix] 40 mg PO BID #60 tab 11/03/18 Sucralfate [Carafate] 1 gm PO 1HR_ACHS #120 tab 11/03/18 Following Prescrptions Were Given to Patient: Aspirin E.C. [Ecotrin] 81 mg PO DAILY@0800 #30 tab Iron Polysaccharide Complex [Ferrex 150] 150 mg PO DAILYCM #30 cap Sucralfate [Carafate] 1 gm PO 1HR_ACHS #120 tab Pantoprazole Sodium [Protonix] 40 mg PO BID #60 tab Primary Care Physician: Juliana Jauregui DO [Primary Care Provider] - Please follow up with your Primary Care Physician in: 1 Week Please Follow Up With: Casie Carson MD - Nephrology When: As scheduled Please Follow Up With: Dudley Aguilar MD When: 1 Week Please Follow Up With: Juancarlos Trujillo MD When: 1-2 Weeks Disposition: Home Minutes spent on discharge:: 35 Patient Condition:: Stable Medical Necessity - Tobacco Use Smoking Status: Former smoker Tobacco Use: Non-smoker Meaningful Use Info Meaningful Use Diagnoses (Choose all that apply): None applicable <Talya Dockery - Last Filed: 11/03/18 17:22> Discharge Date and Diagnosis - Secondary Discharge Diagnosis Chronic Problems (Last Updated 10/31/18 @ 17:50 by Kings Holm DO) DVT (deep venous thrombosis) (Chronic) Presence of IVC filter (Chronic) CKD (chronic kidney disease), stage IV (Chronic) HTN (hypertension) (Chronic) PAD (peripheral artery disease) (Chronic) Hospital Course and Treatment Summary of Care Provided: Patient seen by Vera QUINONEZ under my supervision The patient is an 78 year old M with past medical history as listed who was admitted with a complaint of black tarry stools. Hemoglobin was 9.1 on admission and he had positive Hemoccult stool. He did have a history of esophageal bleeding and bleeding ulcers of unclear location. General surgery was consulted and he had an EGD which showed no blood clots or stigmata of bleeding in the esophagus, stomach or duodenum; however had 2 shallow ulcers in the antrum of the stomach which were nonbleeding and without clots. Patient was started on sucralfate and PPI. He remained stable and was scheduled to be discharged the next day but he had a 28 beat run of V. tach. His electrolytes were WNL. Cardiology was consulted in light of his extensive cardiac history. He was transfused with 2 units of PRBCs. A 2D echo done showed EF of 65% and mild concentric left ventricular hypertrophy as well as mildly enlarged left atrium diastolic function was indeterminate. Cardiology reviewed patient and believe that the best management for patient would be a cardiac cath but in light of his recent GI bleed and chronic kidney disease, cardiac cath would not be done due to risk of worsening kidney disease and also patient could not be on antiplatelets due to his GI bleed. He had a stress test on 11/03/2018 which was negative. V. tach did not recur and patient remained stable. He was discharged on 11/03/2018 on a PPI and sucralfate. He is follow-up with cardiology and his primary care doctor as well as his men's golf coach. Patient seen and examined prior to discharge. He had no complaints and felt well. Review of systems was otherwise negative. Labs and vitals reviewed. Home medications reviewed and reconciled. o/e: Vital Signs Height 6 ft Weight: 188 lb 7.924 oz Weight in Pounds 188.5 lbs Pulse Ox 98 Temperature 98.4 F Pulse Rate [4] 75 Pulse Rate [3] 77 Pulse Rate [2] 73 Pulse Rate [1 (Initial 64 Baseline)] Pulse Rate 65 Respiratory Rate [4] 29 Respiratory Rate [3] 18 Respiratory Rate [2] 29 Respiratory Rate [1 (Initial 21 Baseline)] Respiratory Rate 16 Blood Pressure [BP] 149/48 Blood Pressure [4] 115/72 Blood Pressure [3] 119/71 Blood Pressure [2] 183/73 Blood Pressure [1 (Initial 183/73 Baseline)] Blood Pressure 138/55 Blood Pressure Position [BP] Left Lateral Blood Pressure Position Supine General: Alert, Oriented x3, Cooperative HEENT: Atraumatic, PERRLA, EOMI, Normocephalic Neck: Supple, No JVD, Negative Carotid Bruits Lungs: Clear to auscultation, Normal air movement Cardiovascular: Regular rate, No murmurs Abdomen: Bowel Sounds Present, Soft, Non Tender Extremities: No edema, Capillary Refill Less than 3 Seconds Skin: No rashes, No breakdown Musculoskeletal: No Tenderness to Palpation of Joints or Extremities Neurological: Cranial nerves II-XII grossly intact Psych/Mental Status: Normal Affect, Appropriate, Alert and oriented to time, place, person, mood and affect Patient is to be discharged today. He is to follow with his PCP and non destructive evaluation technician in one week. He is to also follow up with his men's golf coach. Rest of management as per Vera Mishra NP-C's note, which I have reviewed and endorse. - Physical Exam Vital Signs Temp Pulse Resp BP Pulse Ox 98.4 F 65 16 138/55 H 98 11/03/18 09:16 11/03/18 09:19 11/03/18 09:16 11/03/18 09:16 11/03/18 09:16 Oxygen Flow Rate (L/min) [3] 4 Oxygen Flow Rate (L/min) [2] 4 Oxygen Flow Rate (L/min) [1 ( 4 Initial Baseline)] Oxygen Flow Rate (L/min) 2 Oxygen Delivery Method [4] Nasal Cannula Oxygen Delivery Method [3] Nasal Cannula Oxygen Delivery Method [2] Nasal Cannula Oxygen Delivery Method [1 ( Nasal Cannula Initial Baseline)] Oxygen Delivery Method Room Air Weight: 188 lb 7.924 oz Body Mass Index (BMI) 25.5 Intake and Output for Last 24 Hours 11/01/18 11/02/18 11/03/18 23:59 23:59 23:59 Intake Total 4903 / 4903 3807 / 3807 691 / 691 Output Total 1400 / 1400 2625 / 2625 975 / 975 Balance 3503 / 3503 1182 / 1182 -284 / -284 Microbiology Past 72 Hours 10/31/18 15:25 Stool Occult Blood (ROBBIN) - Final Stool Occult Blood Positive Laboratory Tests Past 24 Hrs 10/31/18 10/31/18 11/03/18 15:20 16:20 05:15 WBC 5.9 RBC 3.60 L Hgb 9.8 L Hct 30.1 L MCV 83.6 MCH 27.2 MCHC 32.6 RDW 17.5 H RDW Differential 51.9 H Plt Count 198 MPV 10.6 Immature Gran % (Auto) 0.000 Neut % (Auto) 71.3 H Lymph % (Auto) 12.4 L [place] % (Auto) 9.7 Eos % (Auto) 6.3 H Baso % (Auto) 0.3 Absolute Neuts (auto) 4.2 Absolute Lymphs (auto) 0.73 L Total Counted Not Reportable PT INR APTT Sodium Potassium Chloride Carbon Dioxide Anion Gap BUN Creatinine Estim Creat Clear Calc Est GFR (MDRD) Af Amer Est GFR (MDRD) Non-Af BUN/Creatinine Ratio Glucose Calcium Crossmatch See Detail See Detail 11/03/18 11/03/18 05:15 05:15 WBC RBC Hgb Hct MCV MCH MCHC RDW RDW Differential Plt Count MPV Immature Gran % (Auto) Neut % (Auto) Lymph % (Auto) [place] % (Auto) Eos % (Auto) Baso % (Auto) Absolute Neuts (auto) Absolute Lymphs (auto) Total Counted PT 15.1 H INR 1.2 APTT 31.3 Sodium 147 H Potassium 4.1 Chloride 120 H Carbon Dioxide 21.0 Anion Gap 6 BUN 42 H Creatinine 2.25 H Estim Creat Clear Calc 28.74 Est GFR (MDRD) Af Amer 36 L Est GFR (MDRD) Non-Af 30 L BUN/Creatinine Ratio 18.7 Glucose 90 Calcium 8.3 L Crossmatch Code Visit Inpatient E&M: 53600 Disch Hosp
== END 2018-11-03 12:01 | disposition home or self-care (01) | DRG 378 ==
LOC: ED 15:19 → PCU 17:28 → MS3 11-02 16:03
PROVIDERS: Family Medicine; Physician Assistant; Surgery; Emergency Provider Emergency Medicine; Family Provider Internal Medicine; PCP Internal Medicine; Visit Provider Student in an Organized Health Care Education/Training Program
PROC: 0DJ08ZZ Inspection of Upper Intestinal Tract, Via Natural or Artificial Opening Endoscopic (ICD-10-PCS; CPT 43235; principal; 2018-10-31 18:15)
DX: K92.2 Gastrointestinal hemorrhage, unspecified (principal); N18.4 Chronic kidney disease, stage 4 (severe); D62 Acute posthemorrhagic anemia; I47.2 Ventricular tachycardia; I12.9 Hypertensive chronic kidney disease with stage 1 through stage 4 chronic kidney disease, or unspecified chronic kidney disease; K21.9 Gastro-esophageal reflux disease without esophagitis; K25.9 Gastric ulcer, unspecified as acute or chronic, without hemorrhage or perforation; I73.9 Peripheral vascular disease, unspecified; I65.23 Occlusion and stenosis of bilateral carotid arteries; Z95.828 Presence of other vascular implants and grafts; Z86.79 Personal history of other diseases of the circulatory system; Z86.718 Personal history of other venous thrombosis and embolism; Z79.82 Long term (current) use of aspirin; I70.1 Atherosclerosis of renal artery; Z87.891 Personal history of nicotine dependence
CPT/HCPCS: 36415; 78452; 80048; 80053; 82274; 83540; 83550; 83605; 83735; 84443; 85014; 85018; 85025; 85610; 85730; 86850; 86900; 86920; 93005; 93017; 93306; 93880; 93975; 97161; 99283; A9500; J1756; J7030; P9016; A4216; J2785

== ENCOUNTER 2018-11-09 22:28 | Inpatient (IN) | payer MEDICARE, SELFPAY ==
[2018-11-03 15:27] VITALS: BMI 25.3
[2018-11-09 22:31] VITALS: BP 118/69; PULSE 76; RESP 18; TEMP 37.1; O2SAT 96; BMI 25.3
[2018-11-09 23:31] LABS: Absolute Lymphocyte Count 0.94 X10^3/ul (0.83-4.51); Absolute Neutrophil Count 8.7 X10^3/uL (2.0-7.7); Basophil# 0.05 X10^3/uL; Basophil% 0.5 % (0-1); Eosinophil# 0.08 X10^3/uL; Eosinophils% 0.8 % (0-5); Hematocrit 26.2 % (40-54); Lymphocyte # 0.94 X10^3/ul (4.0); Lymphocyte % 9.1 % (19-41); Mean Corp Hgb Conc 30.5 g/gl (32-36); Mean Corpuscular Hgb 26.6 pg (27.0-32.0); Mean Platelet Vol. 11.1 fl (6.2-12.0); Monocyte# 0.61 X10^3/uL; Monocyte% 5.9 % (0-10); Neutrophil # 8.68 X10^3/uL (2.7-7.7); Neutrophil % 83.5 % (47-70); Platelet Count 302 K/mm3 (150-450); RBC Distribution Width CV 17.8 % (11.6-14.6); RBC Distribution Width SD 54.3 fl (35.1-43.9); Red Blood Count 3.01 M/mm3 (4.6-6.2); White Blood Count 10.4 K/mm3 (4.4-11.0)
[2018-11-09] MEDS: 0.9% Normal Saline 1,000 ML 150 ML IV (23:31)
[2018-11-09 23:37] LABS: POSITIVE COUNT NO; POSITIVE DIFFERENTIAL NO; POSITIVE MORPHOLOGY NO
[2018-11-09 23:43] LABS: Anion Gap 8 (5-15); BUN 87 mg/dL (7-18); BUN/Creat Ratio 30.2 RATIO (10-20); Calcium,Total 8.3 mg/dL (8.5-10.1); Chloride 111 mmol/L (98-107); Creatinine, Serum 2.88 mg/dL (0.70-1.30); EST Glomerular Filtration Rate 23 mL/min (>60); Est Glom Filt Rate - Afr Amer 27 mL/min (>60); Estimated Creatinine Clearance 22.45 ml/min; Glucose 93 mg/dL (74-106); Sodium Level 142 mmol/L (136-145)
[2018-11-10] VITALS (20 sets, daily range): BP systolic 123–169; BP diastolic 57–83; PULSE 64–78; RESP 14–20; TEMP 36.3–36.9; O2SAT 96–100; BMI 25.7
[2018-11-10] LABS: International Normalized Ratio 1.2; Prothrombin Time (Protime)PT. 15.1 SECONDS (11.7-14.9)
[2018-11-10 00:01] LABS: Partial Thromboplast Time 29.5 Seconds (24.1-36.2)
--- NOTE | 2018-11-10 00:24 | ED.DCSUM_ITS ---
- ER Visit Summary Date of Service: 11/10/18 Chief Complaint: [] GI bleed History of Present Illness: The patient is a 78 M [] who was admitted to the hospital October 31- for upper GI bleed with anemia. His hemoglobin was 9.1 on arrival and dropped as low as 7.9. He had an EGD on October [address] Aguilar that revealed nonbleeding gastric ulcers. Patient noted with his black stool returned this morning. He denies any abdominal pain. While in the hospital on last admission he had a 28 beat run of V. tach. He was evaluated by cardiology and had a normal stress test. It was felt that his arrhythmia was secondary to his anemia. He did receive 2 units of blood while in the hospital and was disc harged with a hemoglobin of 9.8. Physical Examination: [] Vital signs are unremarkable. Patient sitting upright in bed no acute distress. Head and neck examination grossly unremarkable. Heart is regular rate and rhythm. Lung sounds are clear. Abdomen is soft and nontender. Rectal examination reveals dark black stool on gloved finger. Test Results: [] CBC significant for hemoglobin of 8.0 hematocrit 26.2. Chemistry studies reveal BUN of 87 and creatinine 2.88. Patient's BUN on last admission had started in the 80s and improved into the 50s at discharge. Coags are unremarkable. Stool guaiac does return positive. Patient was observed on night monitor while here. He is in sinus rhythm with rare PVCs. Emergency Department Course and Treatment: [] Patient is ordered IV Protonix. I spoke with the John Cheek, on-call for Dr. Aguilar. Patient is to be admitted by medicine and Dr. Aguilar will evaluate him in the morning. Treatment Plan: [] Disposition: [] Admit Impression: [] GI bleed This note was generated with [employer] dictation software. It may contain incorrect words, spelling, and punctuation that were not noted in review of the chart prior to signing ED Disposition - Plan for ED Patient: Referrals: Juliana Jauregui DO [Primary Care Provider] -
--- NOTE | 2018-11-10 00:28 | HP.PCM_ITS ---
Problem List (1) Acute blood loss anemia Status: Acute (2) DVT (deep venous thrombosis) Status: Chronic Qualifiers: DVT location: lower extremity Chronicity: chronic Laterality: left (3) Presence of IVC filter Status: Chronic (4) CKD (chronic kidney disease), stage IV Status: Chronic (5) HTN (hypertension) Status: Chronic History of Present Illness Date of Admission: 11/10/18 Chief Complaint: melena The patient is a 78 year old M with a significant history of abdominal aortic aneurysm status post surgery; chronic kidney disease stage IV; peptic ulcer disease status post cauterization; DVT status post [place] filter who presented to the emergency department with dark stools that started on the same day of admission. Associated with symptoms is weakness; and diarrhea. At the emergency department rectal examination by emergency physician showed dark stools and fecal occult blood test returned positive. Patient received IV Protonix at the emergency department. An order of for crossmatch and 2 units of packed red blood cells were ordered at the emergency department. One unit of blood was started from the ED Importantly patient was recently admitted on 10/31/2018 for acute blood loss an emia and was found to have nonbleeding ulcers at that time. Also during that admission patient was noted to have wide-complex tachycardia and a follow-up nuclear stress test was negative for ischemia. Patient was discharged home on 11/03/2018. Patient was previously on full dose aspirin but following his previously hospitalization for GI bleed his full dose aspirin was deescalated to baby aspirin daily. With this presentation emergency department doctor discussed the case with General Surgery and General Surgery will be following patient. Past Medical History Past Medical History (Chronic Problems): Chronic Problems (Last Reviewed 11/10/18 @ 01:24 by Mehrdad Biggs MD) DVT (deep venous thrombosis) (Chronic) Presence of IVC filter (Chronic) CKD (chronic kidney disease), stage IV (Chronic) HTN (hypertension) (Chronic) PAD (peripheral artery disease) (Chronic) Medical History: Medical History (Last Reviewed 11/10/18 @ 01:24 by Mehrdad Biggs MD) AAA (abdominal aortic aneurysm) I71.4 Orthostatic hypotension I95.1 PUD (peptic ulcer disease) K27.9 VTE (venous thromboembolism) I82.90 CKD (chronic kidney disease), stage IV N18.4 Allergies No Known Allergies Allergy (Verified 11/09/18 22:33) Home Medications: Ambulatory Orders Medication Instructions Recorded Losartan/Hydrochlorothiazide 1 tab PO BID 10/31/18 [Losartan-Hctz 50-12.5 mg Tab] Metoprolol Succinate [Toprol Xl] 50 mg PO DAILY 10/31/18 Multivit-Min/FA/Lycopen/Lutein 1 tab PO DAILY 10/31/18 [Centrum Silver Men Tablet] [place]-3S/Dha/Epa/Fish Oil/D3 1 each PO DAILY 10/31/18 [[place]-3 + D Softgel] Aspirin E.C. [Ecotrin] 81 mg PO DAILY@0800 #30 tab 11/03/18 Iron Polysaccharide Complex 150 mg PO DAILYCM #30 cap 11/03/18 [Ferrex 150] Pantoprazole Sodium [Protonix] 40 mg PO BID #60 tab 11/03/18 Sucralfate [Carafate] 1 gm PO 1HR_ACHS #120 tab 11/03/18 Amlodipine Besylate 5 mg PO DAILY 11/10/18 Surgical History: total hip arthroplasty, - Lives: Spouse/ Significant Other Smoking Status: Former smoker Alcohol: Occasional - *Family History Maternal Family History: Family History (Last Updated 11/10/18 @ 01:25 by Mehrdad Biggs MD) Sister Breast cancer Sister Breast cancer History Items: - - no CAD Review of Systems Constitutional: Reports: Weakness. Denies: Chills, Fever, Weight Change HEENT: Denies: Head Aches, Sinus Congestion, Sinus Drainage Cardiovascular: Denies: Chest Pain, Palpitations Respiratory: Denies: Cough, Shortness of breath at rest, Sputum production Gastrointestinal: Reports: Abdominal Pain - Abdomen discomfort., Diarrhea, Nausea, Melena. Denies: Vomiting Genitourinary: Denies: Dysuria Musculoskeletal: Denies: Joint Pain, Joint Tenderness Skin: Denies: Rash, Wounds Neurological: Denies: Numbness, Tingling, Focal weakness Psychiatric: Denies: Anxiety, Depression, Homicidal Ideations, Suicidal Ideations Hematologic/ Lymphatic: Denies: Easy Bruising, Easy Bleeding VTE Information - Inpt Only VTE Present on Admission: No VTE Mechan Device Prophylaxis: SCD's VTE Pharm Prophylaxis ordered?: No - Physical Exam General: Alert, Oriented x3, Cooperative HEENT: Atraumatic, PERRLA, EOMI, Normocephalic Neck: Supple, No JVD, Negative Carotid Bruits Lungs: Clear to auscultation, Normal air movement Cardiovascular: Regular rate, No murmurs Abdomen: Bowel Sounds Present, Soft, Non Tender, - - Rectal exams was not done since emergency department doctor just did patient rectal exams. Extremities: No edema, Capillary Refill Less than 3 Seconds Skin: No rashes, No breakdown Musculoskeletal: No Tenderness to Palpation of Joints or Extremities Neurological: Neuro grossly intact Psych/Mental Status: Normal Affect, Appropriate Vital Signs Temp Pulse Resp BP Pulse Ox 98.7 F 76 18 118/69 96 11/09/18 22:31 11/09/18 22:31 11/09/18 22:31 11/09/18 22:31 11/09/18 22:31 Oxygen Delivery Method Room Air Weight: 84.822 kg Body Mass Index (BMI) 25.3 Microbiology Past 72 Hours 11/09/18 23:48 Stool Occult Blood (ROBBIN) - Final Stool Occult Blood Positive Laboratory Tests Past 24 Hrs 11/09/18 11/09/18 11/09/18 23:15 23:15 23:15 WBC 10.4 RBC 3.01 L Hgb 8.0 L Hct 26.2 L MCV 87.0 MCH 26.6 L MCHC 30.5 L RDW 17.8 H RDW Differential 54.3 H Plt Count 302 MPV 11.1 Immature Gran % (Auto) 0.200 Neut % (Auto) 83.5 H Lymph % (Auto) 9.1 L [place] % (Auto) 5.9 Eos % (Auto) 0.8 Baso % (Auto) 0.5 Absolute Neuts (auto) 8.7 H Absolute Lymphs (auto) 0.94 Total Counted Not Reportable PT Cancelled INR Cancelled APTT Cancelled Sodium 142 Potassium 5.0 Chloride 111 H Carbon Dioxide 23.0 Anion Gap 8 BUN 87 H Creatinine 2.88 H Estim Creat Clear Calc 22.45 Est GFR (MDRD) Af Amer 27 L Est GFR (MDRD) Non-Af 23 L BUN/Creatinine Ratio 30.2 H Glucose 93 Calcium 8.3 L Blood Type Antibody Screen 11/09/18 11/09/18 23:15 23:42 WBC RBC Hgb Hct MCV MCH MCHC RDW RDW Differential Plt Count MPV Immature Gran % (Auto) Neut % (Auto) Lymph % (Auto) [place] % (Auto) Eos % (Auto) Baso % (Auto) Absolute Neuts (auto) Absolute Lymphs (auto) Total Counted PT 15.1 H INR 1.2 APTT 29.5 Sodium Potassium Chloride Carbon Dioxide Anion Gap BUN Creatinine Estim Creat Clear Calc Est GFR (MDRD) Af Amer Est GFR (MDRD) Non-Af BUN/Creatinine Ratio Glucose Calcium Blood Type O POSITIVE Antibody Screen NEGATIVE Assessment/Plan All Active Problems (Last Reviewed 11/10/18 @ 01:24 by Mehrdad Biggs MD) Upper GI bleed (Acute) Acute blood loss anemia (Acute) Ventricular tachycardia (Acute) The patient is a 78 year old M with a significant history of abdominal aortic aneurysm status post surgery; chronic kidney disease stage IV; peptic ulcer disease status post cauterization; DVT status post [place] filter who presented to the emergency department with dark stools; weakness and diarrhea and confirmed to have dark stools on rectal examination and with a positive fecal occult blood test as well as anemia consistent with acute blood loss anemia secondary to likely upper GI bleed. Acute blood loss anemia And his hemoglobin was 8.0. Review of old records show that his hemoglobin on 11/03/2018 was 9.8 after he had received blood transfusion during that admission stated in HPI. We will trend H&H. Patient was typed and crossed and 2 units of blood and started on one unit of PRBC at the ED We will keep patient n.p.o. Patient was started on IV hydration in the emergency department we will continue IV hydration. Patient received IV protonix at the emergency department. We will continue IV Protonix. Hold home aspirin. Hold all other medications including blood pressure medication since patient is n.p.o. and also since we have to be cautious about his blood pressure at this time of bleeding. We will admit to [facility] telemetry. General surgery has been consulted. Hypertension On presentation his blood pressure was within goal. Because of acute blood loss anemia with risk of hypotension we will hold his home hypertensive medications. Peptic ulcer disease Hold home p.o. Protonix and Carafate as patient has been started on Protonix IV. DVT prophylaxis Because of GI bleeding no chemo-thromboprophylaxis at this time. SCD ordered. Code Visit Inpatient E&M: 90564 Init Hosp L3
--- NOTE | 2018-11-10 02:01 | ED.RN ---
CLARIFIED WITH ER PHYSICIAN THAT ORDER WAS ENTERED FOR BLOOD TO BE GIVEN AND UNABLE TO CHANGE ORDER TO SAY YES FROM NO DUE TO PROBLEM WITH IT DEPT. PT CURRENTLY HAS 1 UNIT INFUSING FROM ER TO MS3. MS3 TO CLARIFY WITH ADMITTING PHYSICIAN WHETHER OR NOT HE WANTS THE SECOND UNIT GIVEN.
[2018-11-10] MEDS: 0.9% Normal Saline 1,000 ML 150 ML IV ×2 (03:55→12:34)
[2018-11-10 05:44] LABS: Hematocrit 26.7 % (40-54); Hemoglobin 8.8 g/dl (13.0-16.5)
--- NOTE | 2018-11-10 09:13 | NURSING ---
Report given to Dee in AC at this time.
--- NOTE | 2018-11-10 09:22 | PCM.CONS.GEN ---
Problem List (1) Upper GI bleed Status: Acute Reason for Consult Date of Consultation: 11/10/18 History of Present Illness: The patient is a 78 year old M who was recently admitted with melena and had EGD. EGD revealed shallow antral ulcers with no active bleeding. Patient was discharged home on Carafate and Protonix but says that he did not take them as he was worried about his kidney function. He returned yesterday with melena once more. He is not complaining of any abdominal pain. Past Medical History Past Medical History (Chronic Problems): Chronic Problems (Last Reviewed 11/10/18 @ 01:24 by Mehrdad Biggs MD) DVT (deep venous thrombosis) (Chronic) Presence of IVC filter (Chronic) CKD (chronic kidney disease), stage IV (Chronic) HTN (hypertension) (Chronic) PAD (peripheral artery disease) (Chronic) Medical History: Medical History (Last Reviewed 11/10/18 @ 01:24 by Mehrdad Biggs MD) AAA (abdominal aortic aneurysm) I71.4 Orthostatic hypotension I95.1 PUD (peptic ulcer disease) K27.9 VTE (venous thromboembolism) I82.90 CKD (chronic kidney disease), stage IV N18.4 Allergies No Known Allergies Allergy (Verified 11/09/18 22:33) Home Medications: Ambulatory Orders Medication Instructions Recorded Losartan/Hydrochlorothiazide 1 tab PO BID 10/31/18 [Losartan-Hctz 50-12.5 mg Tab] Metoprolol Succinate [Toprol Xl] 50 mg PO DAILY 10/31/18 Multivit-Min/FA/Lycopen/Lutein 1 tab PO DAILY 10/31/18 [Centrum Silver Men Tablet] [place]-3S/Dha/Epa/Fish Oil/D3 1 each PO DAILY 10/31/18 [[place]-3 + D Softgel] Aspirin E.C. [Ecotrin] 81 mg PO DAILY@0800 #30 tab 11/03/18 Iron Polysaccharide Complex 150 mg PO DAILYCM #30 cap 11/03/18 [Ferrex 150] Pantoprazole Sodium [Protonix] 40 mg PO BID #60 tab 11/03/18 Sucralfate [Carafate] 1 gm PO 1HR_ACHS #120 tab 11/03/18 Amlodipine Besylate 5 mg PO DAILY 11/10/18 Surgical History: total hip arthroplasty, - Lives: Spouse/ Significant Other Smoking Status: Former smoker Tobacco Use: Cigarettes Alcohol: Occasional - *Family History Maternal Family History: Family History (Last Updated 11/10/18 @ 01:25 by Mehrdad Biggs MD) Sister Breast cancer Sister Breast cancer History Items: - - no CAD Review of Systems Constitutional: Denies: Anorexia, Fever HEENT: Denies: Difficulty Swallowing Cardiovascular: Denies: Chest Pain Respiratory: Denies: Cough, Shortness of Breath Gastrointestinal: Reports: Melena. Denies: Abdominal Pain, Diarrhea, Hematemesis, Hematochezia, Nausea, Vomiting Genitourinary: Denies: Dysuria Musculoskeletal: Denies: Leg Pain Skin: Denies: Dryness, Jaundice Neurological: Denies: Balance problems Psychiatric: Denies: Depression Hematologic/ Lymphatic: Reports: Anemia - Physical Exam General: Alert, Oriented x3, Cooperative, No apparent distress HEENT: Atraumatic, PERRLA, EOMI Neck: Supple, No JVD Lungs: Normal air movement Cardiovascular: Regular rate, Regular Rhythm Abdomen: Soft, Non Tender, Non-Distended Vital Signs Temp Pulse Resp BP Pulse Ox 97.9 F 72 18 163/60 H 97 11/10/18 08:45 11/10/18 08:45 11/10/18 08:45 11/10/18 08:45 11/10/18 08:45 Oxygen Delivery Method Room Air Weight: 189 lb 6.033 oz Body Mass Index (BMI) 25.7 Intake and Output for Last 24 Hours 11/08/18 11/09/18 11/10/18 23:59 23:59 23:59 Intake Total 608.1 / 608.1 Balance 608.1 / 608.1 Microbiology Past 72 Hours 11/09/18 23:48 Stool Occult Blood (ROBBIN) - Final Stool Occult Blood Positive Laboratory Tests Past 24 Hrs 11/09/18 11/09/18 11/09/18 23:15 23:15 23:15 WBC 10.4 RBC 3.01 L Hgb 8.0 L Hct 26.2 L MCV 87.0 MCH 26.6 L MCHC 30.5 L RDW 17.8 H RDW Differential 54.3 H Plt Count 302 MPV 11.1 Immature Gran % (Auto) 0.200 Neut % (Auto) 83.5 H Lymph % (Auto) 9.1 L [place] % (Auto) 5.9 Eos % (Auto) 0.8 Baso % (Auto) 0.5 Absolute Neuts (auto) 8.7 H Absolute Lymphs (auto) 0.94 Total Counted Not Reportable PT Cancelled INR Cancelled APTT Cancelled Sodium 142 Potassium 5.0 Chloride 111 H Carbon Dioxide 23.0 Anion Gap 8 BUN 87 H Creatinine 2.88 H Estim Creat Clear Calc 22.45 Est GFR (MDRD) Af Amer 27 L Est GFR (MDRD) Non-Af 23 L BUN/Creatinine Ratio 30.2 H Glucose 93 Calcium 8.3 L Blood Type Antibody Screen Crossmatch 11/09/18 11/09/18 11/09/18 23:15 23:15 23:42 WBC RBC Hgb Hct MCV MCH MCHC RDW RDW Differential Plt Count MPV Immature Gran % (Auto) Neut % (Auto) Lymph % (Auto) [place] % (Auto) Eos % (Auto) Baso % (Auto) Absolute Neuts (auto) Absolute Lymphs (auto) Total Counted PT 15.1 H INR 1.2 APTT 29.5 Sodium Potassium Chloride Carbon Dioxide Anion Gap BUN Creatinine Estim Creat Clear Calc Est GFR (MDRD) Af Amer Est GFR (MDRD) Non-Af BUN/Creatinine Ratio Glucose Calcium Blood Type O POSITIVE Antibody Screen NEGATIVE Crossmatch See Detail 11/10/18 05:00 WBC RBC Hgb 8.8 L Hct 26.7 L MCV MCH MCHC RDW RDW Differential Plt Count MPV Immature Gran % (Auto) Neut % (Auto) Lymph % (Auto) [place] % (Auto) Eos % (Auto) Baso % (Auto) Absolute Neuts (auto) Absolute Lymphs (auto) Total Counted PT INR APTT Sodium Potassium Chloride Carbon Dioxide Anion Gap BUN Creatinine Estim Creat Clear Calc Est GFR (MDRD) Af Amer Est GFR (MDRD) Non-Af BUN/Creatinine Ratio Glucose Calcium Blood Type Antibody Screen Crossmatch Assessment/Plan All Active Problems (Last Reviewed 11/10/18 @ 01:24 by Mehrdad Biggs MD) Upper GI bleed (Acute) Acute blood loss anemia (Acute) Ventricular tachycardia (Acute) 78-year-old male with melena 1. Patient was recently admitted and had EGD which showed 2 ulcers which were nonbleeding at the time. Patient did not take his Carafate and PPI as an outpatient as he was worried about his kidney function and he read this is bad for his kidneys. He returned with melena again yesterday. He is not complaining of any abdominal pain. I will perform an EGD today to see if anything is actively bleeding at this time. If I still do not find any active bleeding, it is possible that this is a distal duodenal or jejunal bleed. Patient would need capsule endoscopy at a tertiary center. 2. I explained endoscopy in detail to the patient. I explained the risks including but not limited to stroke or heart attack with anesthesia, perforation of the GI tract, bleeding, infection. I explained that any of these could necessitate further emergency surgery. The patient understands and all questions were answered sufficiently. The patient wishes to proceed with procedure. 3. Patient was given 1 unit of blood yesterday and started on IV Protonix. Dudley Aguilar MD Pager: [facility] [address] [place] [address], [address] [place] [address] Office:
--- NOTE | 2018-11-10 09:25 | CON.PCM_ITS ---
Problem List (1) Upper GI bleed Status: Acute Reason for Consult Date of Consultation: 11/10/18 History of Present Illness: The patient is a 78 year old M who was recently admitted with melena and had EGD. EGD revealed shallow antral ulcers with no active bleeding. Patient was discharged home on Carafate and Protonix but says that he did not take them as he was worried about his kidney function. He returned yesterday with melena once more. He is not complaining of any abdominal pain. Past Medical History Past Medical History (Chronic Problems): Chronic Problems (Last Reviewed 11/10/18 @ 01:24 by Mehrdad Biggs MD) DVT (deep venous thrombosis) (Chronic) Presence of IVC filter (Chronic) CKD (chronic kidney disease), stage IV (Chronic) HTN (hypertension) (Chronic) PAD (peripheral artery disease) (Chronic) Medical History: Medical History (Last Reviewed 11/10/18 @ 01:24 by Mehrdad Biggs MD) AAA (abdominal aortic aneurysm) I71.4 Orthostatic hypotension I95.1 PUD (peptic ulcer disease) K27.9 VTE (venous thromboembolism) I82.90 CKD (chronic kidney disease), stage IV N18.4 Allergies No Known Allergies Allergy (Verified 11/09/18 22:33) Home Medications: Ambulatory Orders Medication Instructions Recorded Losartan/Hydrochlorothiazide 1 tab PO BID 10/31/18 [Losartan-Hctz 50-12.5 mg Tab] Metoprolol Succinate [Toprol Xl] 50 mg PO DAILY 10/31/18 Multivit-Min/FA/Lycopen/Lutein 1 tab PO DAILY 10/31/18 [Centrum Silver Men Tablet] [place]-3S/Dha/Epa/Fish Oil/D3 1 each PO DAILY 10/31/18 [[place]-3 + D Softgel] Aspirin E.C. [Ecotrin] 81 mg PO DAILY@0800 #30 tab 11/03/18 Iron Polysaccharide Complex 150 mg PO DAILYCM #30 cap 11/03/18 [Ferrex 150] Pantoprazole Sodium [Protonix] 40 mg PO BID #60 tab 11/03/18 Sucralfate [Carafate] 1 gm PO 1HR_ACHS #120 tab 11/03/18 Amlodipine Besylate 5 mg PO DAILY 11/10/18 Surgical History: total hip arthroplasty, - Lives: Spouse/ Significant Other Smoking Status: Former smoker Tobacco Use: Cigarettes Alcohol: Occasional - *Family History Maternal Family History: Family History (Last Updated 11/10/18 @ 01:25 by Mehrdad Biggs MD) Sister Breast cancer Sister Breast cancer History Items: - - no CAD Review of Systems Constitutional: Denies: Anorexia, Fever HEENT: Denies: Difficulty Swallowing Cardiovascular: Denies: Chest Pain Respiratory: Denies: Cough, Shortness of Breath Gastrointestinal: Reports: Melena. Denies: Abdominal Pain, Diarrhea, Hematemesis, Hematochezia, Nausea, Vomiting Genitourinary: Denies: Dysuria Musculoskeletal: Denies: Leg Pain Skin: Denies: Dryness, Jaundice Neurological: Denies: Balance problems Psychiatric: Denies: Depression Hematologic/ Lymphatic: Reports: Anemia - Physical Exam General: Alert, Oriented x3, Cooperative, No apparent distress HEENT: Atraumatic, PERRLA, EOMI Neck: Supple, No JVD Lungs: Normal air movement Cardiovascular: Regular rate, Regular Rhythm Abdomen: Soft, Non Tender, Non-Distended Vital Signs Temp Pulse Resp BP Pulse Ox 97.9 F 72 18 163/60 H 97 11/10/18 08:45 11/10/18 08:45 11/10/18 08:45 11/10/18 08:45 11/10/18 08:45 Oxygen Delivery Method Room Air Weight: 189 lb 6.033 oz Body Mass Index (BMI) 25.7 Intake and Output for Last 24 Hours 11/08/18 11/09/18 11/10/18 23:59 23:59 23:59 Intake Total 608.1 / 608.1 Balance 608.1 / 608.1 Microbiology Past 72 Hours 11/09/18 23:48 Stool Occult Blood (ROBBIN) - Final Stool Occult Blood Positive Laboratory Tests Past 24 Hrs 11/09/18 11/09/18 11/09/18 23:15 23:15 23:15 WBC 10.4 RBC 3.01 L Hgb 8.0 L Hct 26.2 L MCV 87.0 MCH 26.6 L MCHC 30.5 L RDW 17.8 H RDW Differential 54.3 H Plt Count 302 MPV 11.1 Immature Gran % (Auto) 0.200 Neut % (Auto) 83.5 H Lymph % (Auto) 9.[address] [place] % (Auto) 5.9 Eos % (Auto) 0.8 Baso % (Auto) 0.5 Absolute Neuts (auto) 8.7 H Absolute Lymphs (auto) 0.94 Total Counted Not Reportable PT Cancelled INR Cancelled APTT Cancelled Sodium 142 Potassium 5.0 Chloride 111 H Carbon Dioxide 23.0 Anion Gap 8 BUN 87 H Creatinine 2.88 H Estim Creat Clear Calc 22.45 Est GFR (MDRD) Af Amer 27 L Est GFR (MDRD) Non-Af 23 L BUN/Creatinine Ratio 30.2 H Glucose 93 Calcium 8.3 L Blood Type Antibody Screen Crossmatch 11/09/18 11/09/18 11/09/18 23:15 23:15 23:42 WBC RBC Hgb Hct MCV MCH MCHC RDW RDW Differential Plt Count MPV Immature Gran % (Auto) Neut % (Auto) Lymph % (Auto) [place] % (Auto) Eos % (Auto) Baso % (Auto) Absolute Neuts (auto) Absolute Lymphs (auto) Total Counted PT 15.1 H INR 1.2 APTT 29.5 Sodium Potassium Chloride Carbon Dioxide Anion Gap BUN Creatinine Estim Creat Clear Calc Est GFR (MDRD) Af Amer Est GFR (MDRD) Non-Af BUN/Creatinine Ratio Glucose Calcium Blood Type O POSITIVE Antibody Screen NEGATIVE Crossmatch See Detail 11/10/18 05:00 WBC RBC Hgb 8.8 L Hct 26.7 L MCV MCH MCHC RDW RDW Differential Plt Count MPV Immature Gran % (Auto) Neut % (Auto) Lymph % (Auto) [place] % (Auto) Eos % (Auto) Baso % (Auto) Absolute Neuts (auto) Absolute Lymphs (auto) Total Counted PT INR APTT Sodium Potassium Chloride Carbon Dioxide Anion Gap BUN Creatinine Estim Creat Clear Calc Est GFR (MDRD) Af Amer Est GFR (MDRD) Non-Af BUN/Creatinine Ratio Glucose Calcium Blood Type Antibody Screen Crossmatch Assessment/Plan All Active Problems (Last Reviewed 11/10/18 @ 01:24 by Mehrdad Biggs MD) Upper GI bleed (Acute) Acute blood loss anemia (Acute) Ventricular tachycardia (Acute) 78-year-old male with melena 1. Patient was recently admitted and had EGD which showed 2 ulcers which were nonbleeding at the time. Patient did not take his Carafate and PPI as an ou tpatient as he was worried about his kidney function and he read this is bad for his kidneys. He returned with melena again yesterday. He is not complaining of any abdominal pain. I will perform an EGD today to see if anything is actively bleeding at this time. If I still do not find any active bleeding, it is possible that this is a distal duodenal or jejunal bleed. Patient would need capsule endoscopy at a tertiary center. 2. I explained endoscopy in detail to the patient. I explained the risks including but not limited to stroke or heart attack with anesthesia, perforation of the GI tract, bleeding, infection. I explained that any of these could necessitate further emergency surgery. The patient understands and all questions were answered sufficiently. The patient wishes to proceed with procedure. 3. Patient was given 1 unit of blood yesterday and started on IV Protonix. Dudley Aguilar MD Pager: [facility] [address] [place] [address], [address] [place] [address] Office:
--- NOTE | 2018-11-10 09:44 | CASEMGMT ---
JANET BONILLA Re-admission note: Pt admitted to [facility] 10/31/18 for GIB and discharged home 11/03/18. Pt had an EGD during that hospitalization and discharged home on PO Carafate and Protonix. See JANET BONILLA note by Mann 11/02/18. Re-admitted 11/10/18 w/GIB. Per ER MD, pt was not taking the Carafate or Protonix @ home d/t he was worried about his kindey function. EGD being repeated today 11/10/18. CM to follow for any discharge planning needs that may arise. Patricia MARC RN CM
--- NOTE | 2018-11-10 09:46 | OP.ENDO_ITS ---
11/10/2018 Juliana Jauregui [address] [place] [address] Re : Upper GI endoscopy procedure for Juan Luis Pierson Dear Dr. Jauregui This procedure was performed on October. My impressions and recommendations are as follows: Impressions : - Esophageal ulcer with bleeding. - No specimens collected. Recommendations : - Use Protonix (pantoprazole) 20 mg PO BID for 6 weeks. - Use sucralfate tablets 1 gram PO QID for 4 weeks. - Resume regular diet. - Repeat upper endoscopy in 3 weeks for surveillance and biopsies if not healed. - Return to my office in 1 week. - Continue present medications. My findings are described in the full procedure note, which is enclosed. If I can be of further assistance, please feel free to contact me at Doctor phone number(s): , Work: . Sincerely, Dudley Aguilar MD 11/10/2018 9:46:16 AM This report has been signed electronically.
--- NOTE | 2018-11-10 10:33 | PN_ITS ---
Progress Note I performed an EGD and the patient. EGD revealed adherent clot to the ulcer in the GE junction. There is no active bleeding at this time. Patient told me that he did not take his PPI or Carafate at home for risk of worsening his chronic kidney disease. I strongly encouraged him to take these for at least 1 month and to follow-up with me in 1 week. He can have a soft diet at this time. Monitor hemoglobin. When he is discharged I would like to see him back to discuss repeat scope in 1 month. If the ulcer is not healed I will perform biopsies. If he rebleeds I can re-scope but there is no way to place clips in this area. Dudley Aguilar MD Pager: [facility] [address] [place] [address] [address] [place] [address] Office:
--- NOTE | 2018-11-10 10:52 | CASEMGMT ---
Tertiary facilities that are in-network with patient's insurance: [facility], [facility], [facility], [facility], [facility], [facility], [facility], and [facility].
[2018-11-10 11:06] LABS: Hematocrit 24.5 % (40-54)
--- NOTE | 2018-11-10 13:08 | PCM.PN.HOSP ---
Patient Problems: Active and Suspected Problems (Last Reviewed 11/10/18 @ 01:24 by Mehrdad Biggs MD) Upper GI bleed (Acute) Acute blood loss anemia (Acute) Subjective: Upset that he is here again for the same problem he had previously. Stated that his instructed him not to take his Carafate given his chronic kidney disease. He stated that he nor his notified any of his physicians about doing so. Vitals/I&O's: Vital Signs Temp Pulse Resp BP Pulse Ox 36.7 C 67 18 159/66 H 97 11/10/18 10:50 11/10/18 11:01 11/10/18 10:50 11/10/18 10:50 11/10/18 10:50 Oxygen Delivery Method Room Air Weight: 85.9 kg Body Mass Index (BMI) 25.7 Intake and Output for Last 24 Hours 11/08/18 11/09/18 11/10/18 23:59 23:59 23:59 Intake Total 1413.1 / 1413.1 Output Total 400 / 400 Balance 1013.1 / 1013.1 General: Alert, No apparent distress HEENT: Atraumatic, Normocephalic Oral: Moist Mucosa, No Gingival or Mucosal Lesions/ Ulcerations Neck: No Nodes, Thyroid Normal Size and Texture Lungs: Clear to auscultation, Normal air movement, No rhonchi, No wheeze Cardiovascular: Regular rate, Regular Rhythm, Normal S1, Normal S2, No murmurs Abdomen: Bowel Sounds Present, Soft, Non Tender, Non-Distended Extremities: No edema, No Calf Tenderness Skin: No rashes, No breakdown Psych/Mental Status: Normal Affect, Appropriate Microbiology Past 72 Hours 11/09/18 23:48 Stool Stool Occult Blood (ROBBIN) - Final Occult Blood Positive Laboratory Results 11/09/18 23:15: WBC 10.4, RBC 3.01 L, Hgb 8.0 L, Hct 26.2 L, MCV 87.0, MCH 26.6 L, MCHC 30.5 L, RDW 17.8 H, RDW Differential 54.3 H, Plt Count 302, MPV 11.1, Immature Gran % (Auto) 0.200, Neut % (Auto) 83.5 H, Lymph % (Auto) 9.1 L, [place] % (Auto) 5.9, Eos % (Auto) 0.8, Baso % (Auto) 0.5, Absolute Neuts (auto) 8.7 H, Absolute Lymphs (auto) 0.94, Total Counted Not Reportable 11/09/18 23:15: PT Cancelled, INR Cancelled, APTT Cancelled 11/09/18 23:15: Sodium 142, Potassium 5.0, Chloride 111 H, Carbon Dioxide 23.0, Anion Gap 8, BUN 87 H, Creatinine 2.88 H, Estim Creat Clear Calc 22.45, Est GFR (MDRD) Af Amer 27 L, Est GFR (MDRD) Non-Af 23 L, BUN/Creatinine Ratio 30.2 H, Glucose 93, Calcium 8.3 L 11/09/18 23:15: Blood Type O POSITIVE, Antibody Screen NEGATIVE 11/09/18 23:15: Crossmatch See Detail 11/09/18 23:42: PT 15.1 H, INR 1.2, APTT 29.5 11/10/18 05:00: Hgb 8.8 L, Hct 26.7 L 11/10/18 11:00: Hgb 8.0 L, Hct 24.5 L Current Medications Dextrose (D50w Syringe) 0 gm IV X1 PRN; Protocol PRN Reason: Hypoglycemia Glucagon () 1 mg IM .X1 PRN PRN Reason: Hypoglycemia Sodium Chloride () 1,000 mls @ 150 mls/hr IV .Q6H40M [facility] Stop: 11/10/18 15:14 Last Admin: 11/10/18 12:34 Dose: 150 mls/hr Pantoprazole Sodium 80 mg/ (Sodium Chloride) 100 mls @ 10 mls/hr CONT INF Q10H [facility] Last Admin: 11/10/18 03:54 Dose: 10 mls/hr Ondansetron HCl (Zofran) 4 mg IV Q8H PRN PRN PRN Reason: NAUSEA/VOMITING Sodium Chloride () 5 - 15 ml IV UD PRN PRN Reason: SALINE FLUSH Sucralfate (Carafate) 1 gm PO 1HR_ACHS [facility] Medical Necessity - Tobacco Use Smoking Status: Former smoker Tobacco Use: Cigarettes Assessment/Plan All Active Problems (Last Reviewed 11/10/18 @ 01:24 by Mehrdad Biggs MD) Upper GI bleed (Acute) Acute blood loss anemia (Acute) Ventricular tachycardia (Acute) 1. Bleeding esophageal ulcer Status post EGD today General surgery has recommended Protonix 20 mg twice daily for 6 weeks, sucralfate 1 g 4 times daily for 4 weeks. Will monitor the patient overnight to ensure he has no further melena and if so and if other issues are stable, then patient can be discharged home. 2. Acute blood loss anemia: Hemoglobin went down to 8 from 9.8 No indication for transfusion at this time Continue to monitor 3. Chronic kidney disease stage IV Continue to monitor. 4. BTE prophylaxis: SCDs Code Visit Inpatient E&M: 62355 Subs Hosp L2
--- NOTE | 2018-11-10 13:11 | PN_ITS ---
Patient Problems: Active and Suspected Problems (Last Reviewed 11/10/18 @ 01:24 by Mehrdad Biggs MD) Upper GI bleed (Acute) Acute blood loss anemia (Acute) Subjective: Upset that he is here again for the same problem he had previously. Stated that his instructed him not to take his Carafate given his chronic kidney diseas e. He stated that he nor his notified any of his physicians about doing so. Vitals/I&O's: Vital Signs Temp Pulse Resp BP Pulse Ox 36.7 C 67 18 159/66 H 97 11/10/18 10:50 11/10/18 11:01 11/10/18 10:50 11/10/18 10:50 11/10/18 10:50 Oxygen Delivery Method Room Air Weight: 85.9 kg Body Mass Index (BMI) 25.7 Intake and Output for Last 24 Hours 11/08/18 11/09/18 11/10/18 23:59 23:59 23:59 Intake Total 1413.1 / 1413.1 Output Total 400 / 400 Balance 1013.1 / 1013.1 General: Alert, No apparent distress HEENT: Atraumatic, Normocephalic Oral: Moist Mucosa, No Gingival or Mucosal Lesions/ Ulcerations Neck: No Nodes, Thyroid Normal Size and Texture Lungs: Clear to auscultation, Normal air movement, No rhonchi, No wheeze Cardiovascular: Regular rate, Regular Rhythm, Normal S1, Normal S2, No murmurs Abdomen: Bowel Sounds Present, Soft, Non Tender, Non-Distended Extremities: No edema, No Calf Tenderness Skin: No rashes, No breakdown Psych/Mental Status: Normal Affect, Appropriate Microbiology Past 72 Hours 11/09/18 23:48 Stool Stool Occult Blood (ROBBIN) - Final Occult Blood Positive Laboratory Results 11/09/18 23:15: WBC 10.4, RBC 3.01 L, Hgb 8.0 L, Hct 26.2 L, MCV 87.0, MCH 26.6 L, MCHC 30.5 L, RDW 17.8 H, RDW Differential 54.3 H, Plt Count 302, MPV 11.1, Immature Gran % (Auto) 0.200, Neut % (Auto) 83.5 H, Lymph % (Auto) 9.1 L, [place] % (Auto) 5.9, Eos % (Auto) 0.8, Baso % (Auto) 0.5, Absolute Neuts (auto) 8.7 H, Absolute Lymphs (auto) 0.94, Total Counted Not Reportable 11/09/18 23:15: PT Cancelled, INR Cancelled, APTT Cancelled 11/09/18 23:15: Sodium 142, Potassium 5.0, Chloride 111 H, Carbon Dioxide 23.0, Anion Gap 8, BUN 87 H, Creatinine 2.88 H, Estim Creat Clear Calc 22.45, Est GFR (MDRD) Af Amer 27 L, Est GFR (MDRD) Non-Af 23 L, BUN/Creatinine Ratio 30.2 H, Glucose 93, Calcium 8.3 L 11/09/18 23:15: Blood Type O POSITIVE, Antibody Screen NEGATIVE 11/09/18 23:15: Crossmatch See Detail 11/09/18 23:42: PT 15.1 H, INR 1.2, APTT 29.5 11/10/18 05:00: Hgb 8.8 L, Hct 26.7 L 11/10/18 11:00: Hgb 8.0 L, Hct 24.5 L Current Medications Dextrose (D50w Syringe) 0 gm IV X1 PRN; Protocol PRN Reason: Hypoglycemia Glucagon () 1 mg IM .X1 PRN PRN Reason: Hypoglycemia Sodium Chloride () 1,000 mls @ 150 mls/hr IV .Q6H40M ON LICENSE OF [facility] Stop: 11/10/18 15:14 Last Admin: 11/10/18 12:34 Dose: 150 mls/hr Pantoprazole Sodium 80 mg/ (Sodium Chloride) 100 mls @ 10 mls/hr CONT INF Q10H ON LICENSE OF [facility] Last Admin: 11/10/18 03:54 Dose: 10 mls/hr Ondansetron HCl (Zofran) 4 mg IV Q8H PRN PRN PRN Reason: NAUSEA/VOMITING Sodium Chloride () 5 - 15 ml IV UD PRN PRN Reason: SALINE FLUSH Sucralfate (Carafate) 1 gm PO 1HR_ACHS ON LICENSE OF [facility] Medical Necessity - Tobacco Use Smoking Status: Former smoker Tobacco Use: Cigarettes Assessment/Plan All Active Problems (Last Reviewed 11/10/18 @ 01:24 by Mehrdad Biggs MD) Upper GI bleed (Acute) Acute blood loss anemia (Acute) Ventricular tachycardia (Acute) 1. Bleeding esophageal ulcer * Status post EGD today * General surgery has recommended Protonix 20 mg twice daily for 6 weeks, sucralfate 1 g 4 times daily for 4 weeks. * Will monitor the patient overnight to ensure he has no further melena and if so and if other issues are stable, then patient can be discharged home. 2. Acute blood loss anemia: * Hemoglobin went down to 8 from 9.8 * No indication for transfusion at this time * Continue to monitor 3. Chronic kidney disease stage IV * Continue to monitor. 4. BTE prophylaxis: SCDs Code Visit Inpatient E&M: 58868 Subs Hosp L2
[2018-11-10] MEDS: Sucralfate 1 GM Tablet PO ×2 (15:32→21:16)
[2018-11-10 17:28] LABS: Hematocrit 24.6 % (40-54); Hemoglobin 8.1 g/dl (13.0-16.5)
[2018-11-10 23:48] LABS: Hematocrit 24.3 % (40-54); Hemoglobin 8.1 g/dl (13.0-16.5)
[2018-11-11] VITALS: PULSE 87
[2018-11-11 01:40] VITALS: BP 146/54; PULSE 67; RESP 16; TEMP 36.8; O2SAT 98
[2018-11-11 04:03] VITALS: PULSE 80
[2018-11-11 05:38] LABS: Absolute Lymphocyte Count 1.14 X10^3/ul (0.83-4.51); Absolute Neutrophil Count 4.2 X10^3/uL (2.0-7.7); Basophil# 0.07 X10^3/uL; Basophil% 1.1 % (0-1); Eosinophil# 0.48 X10^3/uL; Eosinophils% 7.4 % (0-5); Hematocrit 24.1 % (40-54); Hemoglobin 7.7 g/dl (13.0-16.5); Lymphocyte # 1.14 X10^3/ul (4.0); Lymphocyte % 17.7 % (19-41); Mean Corpuscular Hgb 27.7 pg (27.0-32.0); Mean Corpuscular Volume 86.7 fL (80-94); Mean Platelet Vol. 10.4 fl (6.2-12.0); Monocyte% 7.8 % (0-10); Neutrophil # 4.24 X10^3/uL (2.7-7.7); Neutrophil % 65.7 % (47-70); Platelet Count 222 K/mm3 (150-450); RBC Distribution Width CV 17.1 % (11.6-14.6); RBC Distribution Width SD 52.6 fl (35.1-43.9); Red Blood Count 2.78 M/mm3 (4.6-6.2); White Blood Count 6.5 K/mm3 (4.4-11.0)
[2018-11-11 05:43] LABS: POSITIVE COUNT NO; POSITIVE DIFFERENTIAL NO; POSITIVE MORPHOLOGY NO
[2018-11-11 05:50] LABS: Anion Gap 6 (5-15); BUN 61 mg/dL (7-18); BUN/Creat Ratio 25.5 RATIO (10-20); Calcium,Total 8.5 mg/dL (8.5-10.1); Chloride 118 mmol/L (98-107); Creatinine, Serum 2.39 mg/dL (0.70-1.30); EST Glomerular Filtration Rate 28 mL/min (>60); Est Glom Filt Rate - Afr Amer 34 mL/min (>60); Estimated Creatinine Clearance 27.06 ml/min; Glucose 82 mg/dL (74-106); Potassium 4.4 mmol/L (3.5-5.1); Sodium Level 146 mmol/L (136-145)
[2018-11-11] MEDS: Sucralfate 1 GM Tablet PO ×2 (06:10→11:34)
--- NOTE | 2018-11-11 08:49 | PCM.PN.SRG ---
Patient Problems: Active and Suspected Problems (Last Reviewed 11/10/18 @ 01:24 by Mehrdad Biggs MD) Upper GI bleed (Acute) Acute blood loss anemia (Acute) Subjective: Patient reports no other melanotic stools overnight. He has no abdominal pain today and is tolerating a regular diet. - Physical Exam General: Alert, Oriented x3 Neck: No JVD Lungs: Clear to auscultation, Normal air movement Cardiovascular: Regular rate, Regular Rhythm Abdomen: Soft, Non Tender, Non-Distended Vital Signs Temp Pulse Resp BP Pulse Ox 98.2 F 80 16 146/54 H 98 11/11/18 01:40 11/11/18 04:03 11/11/18 01:40 11/11/18 01:40 11/11/18 01:40 Oxygen Delivery Method Room Air Weight: 189 lb 6.033 oz Body Mass Index (BMI) 25.7 Intake and Output for Last 24 Hours 11/09/18 11/10/18 11/11/18 23:59 23:59 23:59 Intake Total 2249.1 / 2249.1 936.6 / 936.6 Output Total 625 / 625 1550 / 1550 Balance 1624.1 / 1624.1 -613.4 / -613.4 Microbiology Past 72 Hours 11/09/18 23:48 Stool Occult Blood (ROBBIN) - Final Stool Occult Blood Positive Laboratory Tests Past 24 Hrs 11/10/18 11/10/18 11/10/18 11:00 17:05 23:11 WBC RBC Hgb 8.0 L 8.1 L 8.1 L Hct 24.5 L 24.6 L 24.3 L MCV MCH MCHC RDW RDW Differential Plt Count MPV Immature Gran % (Auto) Neut % (Auto) Lymph % (Auto) [place] % (Auto) Eos % (Auto) Baso % (Auto) Absolute Neuts (auto) Absolute Lymphs (auto) Total Counted Sodium Potassium Chloride Carbon Dioxide Anion Gap BUN Creatinine Estim Creat Clear Calc Est GFR (MDRD) Af Amer Est GFR (MDRD) Non-Af BUN/Creatinine Ratio Glucose Calcium 11/11/18 11/11/18 05:10 05:10 WBC 6.5 RBC 2.78 L Hgb 7.7 L Hct 24.1 L MCV 86.7 MCH 27.7 MCHC 32.0 RDW 17.1 H RDW Differential 52.6 H Plt Count 222 MPV 10.4 Immature Gran % (Auto) 0.300 Neut % (Auto) 65.7 Lymph % (Auto) 17.7 L [place] % (Auto) 7.8 Eos % (Auto) 7.4 H Baso % (Auto) 1.1 H Absolute Neuts (auto) 4.2 Absolute Lymphs (auto) 1.14 Total Counted Not Reportable Sodium 146 H Potassium 4.4 Chloride 118 H Carbon Dioxide 22.0 Anion Gap 6 BUN 61 H Creatinine 2.39 H Estim Creat Clear Calc 27.06 Est GFR (MDRD) Af Amer 34 L Est GFR (MDRD) Non-Af 28 L BUN/Creatinine Ratio 25.5 H Glucose 82 Calcium 8.5 Medical Necessity - Tobacco Use Smoking Status: Former smoker Tobacco Use: Cigarettes Assessment/Plan All Active Problems (Last Reviewed 11/10/18 @ 01:24 by Mehrdad Biggs MD) Upper GI bleed (Acute) Acute blood loss anemia (Acute) Ventricular tachycardia (Acute) 78-year-old male with upper GI bleed from esophageal ulceration 1. I stressed with the patient the importance of a PPI and Carafate. I had spoken with Dr. Castillo yesterday as the patient's was very concerned with taking these medications with his renal failure. He assured her that it was safe to take and the patient agrees to take this medicine as an outpatient. I would like to see him back in 1 week to schedule another scope in 1 month to ensure this is healed. If there is no healing I will take biopsies at that time. Dudley Aguilar MD Pager: [facility] [address] [place] [address], [address] [place] [phone] Office:
[2018-11-11 10:00] VITALS: PULSE 93
[2018-11-11 13:11] LABS: Absolute Lymphocyte Count 0.81 X10^3/ul (0.83-4.51); Absolute Neutrophil Count 5.3 X10^3/uL (2.0-7.7); Basophil# 0.07 X10^3/uL; Eosinophil# 0.33 X10^3/uL; Eosinophils% 4.8 % (0-5); Hematocrit 25.7 % (40-54); Hemoglobin 8.3 g/dl (13.0-16.5); Lymphocyte # 0.81 X10^3/ul (4.0); Lymphocyte % 11.7 % (19-41); Mean Corp Hgb Conc 32.3 g/gl (32-36); Mean Corpuscular Hgb 27.9 pg (27.0-32.0); Mean Corpuscular Volume 86.5 fL (80-94); Mean Platelet Vol. 9.9 fl (6.2-12.0); Monocyte# 0.39 X10^3/uL; Monocyte% 5.6 % (0-10); Neutrophil # 5.31 X10^3/uL (2.7-7.7); Neutrophil % 76.8 % (47-70); POSITIVE COUNT NO; POSITIVE DIFFERENTIAL NO; POSITIVE MORPHOLOGY NO; Platelet Count 254 K/mm3 (150-450); RBC Distribution Width CV 17.8 % (11.6-14.6); Red Blood Count 2.97 M/mm3 (4.6-6.2); White Blood Count 6.9 K/mm3 (4.4-11.0)
[2018-11-11 14:00] VITALS: PULSE 94
--- NOTE | 2018-11-11 14:16 | PCM.DC ---
- Discharge Diagnoses Current Active Problems: Current Active and Chronic Problems (Last Reviewed 11/10/18 @ 01:24 by Mehrdad Biggs MD) Upper GI bleed (Acute) Acute blood loss anemia (Acute) You will use the following diet at home:: Renal (restricted protein/sodium) Your food should be the consistency of: Regular Your liquids should be the consistency of: Regular/Thin Call your doctor if you observe: Shortness of breath, Fainting spells, - - vomiting blood. increased dark tarry stool. Additional Instructions: Follow up with primary care physician for labs (BMP and CBC) in 1 week. Allergies/Adverse Reactions: Allergies No Known Allergies Allergy (Verified 11/09/18 22:33) Medications to take at Discharge Losartan/Hydrochlorothiazide [Losartan-Hctz 50-12.5 mg Tab] 1 tab PO BID 10/31/18 Metoprolol Succinate [Toprol Xl] 50 mg PO DAILY 10/31/18 Multivit-Min/FA/Lycopen/Lutein [Centrum Silver Men Tablet] 1 tab PO DAILY 10/31/18 [place]-3S/Dha/Epa/Fish Oil/D3 [[place]-3 + D Softgel] 1 each PO DAILY 10/31/18 Iron Polysaccharide Complex [Ferrex 150] 150 mg PO DAILYCM #30 cap 11/03/18 Pantoprazole Sodium [Protonix] 40 mg PO BID #60 tab 11/03/18 Sucralfate [Carafate] 1 gm PO 1HR_ACHS #120 tab 11/03/18 Amlodipine Besylate 5 mg PO DAILY 11/10/18 Primary Care Physician: Juliana Jauregui DO [Primary Care Provider] - Within 1 Week Test Results: Test results from this visit will be discussed in further detail at your follow-up appointment, if applicable. Please Follow Up With: Dudley Aguilar MD Proposed Discharge Date: 11/11/18
--- NOTE | 2018-11-11 14:21 | PCM.DC.SUM ---
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 Patient underwent an EGD that showed an adherent clot to the ulcer. Recommend patient continue with the PPI and Carafate. Patient was here earlier this month with the same but did not take his PPI or Carafate given his chronic kidney disease. Patient is made that decision on their own without notifying any physicians, including his fixer boarding room. Patient did receive 1 unit of packed red blood cells but his hemoglobin has remained stable. Dr. Aguilar would like to see them back in the office in about a week's time and then have a repeat endoscopy in about 3-4 weeks. Patient already has a prescription for his PPI and Carafate that was sent to [id number] on the . Patient will continue with those. Went back to speak with the patient and his . His states that he cannot be transferred because his hemoglobin is 8 and the nurse practitioner that works with his director of product design in [place] state that he can be transferred that needs to have a hemoglobin of 11. Patient seen and examined independently. Data reviewed. I agree with the above note by the physician research lab assistant. Indicated to her that he does not require any additional transfusions at this time. She states that he received 2 units and then another one today of blood during this admission. I went and spoke to the blood bank and they inform me that he only received 1 unit of packed red blood cells though was typed and screened for 2. Patient did receive 2 units during the previous admission, however. The patient's insist that he be transferred. I told him that there is really no clear indication for transfer. He still has some dark stools but his hemoglobin has remained stable and some of this dark stool may be some residual blood that is spinal still finally coming out of his system but does not appear that he is actively bleeding at this time. Patient's diet has been advanced and is otherwise remaining stable. She stated that she will take him to another hospital to be admitted. [] Patient Problems: Active and Suspected Problems (Last Reviewed 11/10/18 @ 01:24 by Mehrdad Biggs MD) Upper GI bleed (Acute) Acute blood loss anemia (Acute) - Physical Exam General: Alert, No apparent distress HEENT: Atraumatic, Normocephalic Oral: Moist Mucosa, No Gingival or Mucosal Lesions/ Ulcerations Neck: No Nodes, Thyroid Normal Size and Texture Lungs: Clear to auscultation, Normal air movement, No rhonchi, No wheeze Cardiovascular: Regular rate, Regular Rhythm, Normal S1, Normal S2, No murmurs Abdomen: Bowel Sounds Present, Soft, Non Tender, Non-Distended Vital Signs Temp Pulse Resp BP Pulse Ox 36.8 C 93 16 146/54 H 98 11/11/18 01:40 11/11/18 10:00 11/11/18 01:40 11/11/18 01:40 11/11/18 01:40 Oxygen Delivery Method Room Air Weight: 85.9 kg Body Mass Index (BMI) 25.7 Intake and Output for Last 24 Hours 11/09/18 11/10/18 11/11/18 23:59 23:59 23:59 Intake Total 2249.1 / 2249.1 1796.6 / 1796.6 Output Total 625 / 625 2150 / 2150 Balance 1624.1 / 1624.1 -353.4 / -353.4 Microbiology Past 72 Hours 11/09/18 23:48 Stool Occult Blood (ROBBIN) - Final Stool Occult Blood Positive Laboratory Tests Past 24 Hrs 11/10/18 11/10/18 11/11/18 17:05 23:11 05:10 WBC 6.5 RBC 2.78 L Hgb 8.1 L 8.1 L 7.7 L Hct 24.6 L 24.3 L 24.1 L MCV 86.7 MCH 27.7 MCHC 32.0 RDW 17.1 H RDW Differential 52.6 H Plt Count 222 MPV 10.4 Immature Gran % (Auto) 0.300 Neut % (Auto) 65.7 Lymph % (Auto) 17.7 L [place] % (Auto) 7.8 Eos % (Auto) 7.4 H Baso % (Auto) 1.1 H Absolute Neuts (auto) 4.2 Absolute Lymphs (auto) 1.14 Total Counted Not Reportable Sodium Potassium Chloride Carbon Dioxide Anion Gap BUN Creatinine Estim Creat Clear Calc Est GFR (MDRD) Af Amer Est GFR (MDRD) Non-Af BUN/Creatinine Ratio Glucose Calcium 11/11/18 11/11/18 05:10 12:53 WBC 6.9 RBC 2.97 L Hgb 8.3 L Hct 25.7 L MCV 86.5 MCH 27.9 MCHC 32.3 RDW 17.8 H RDW Differential 56.0 H Plt Count 254 MPV 9.9 Immature Gran % (Auto) 0.100 Neut % (Auto) 76.8 H Lymph % (Auto) 11.7 L [place] % (Auto) 5.6 Eos % (Auto) 4.8 Baso % (Auto) 1.0 Absolute Neuts (auto) 5.3 Absolute Lymphs (auto) 0.81 L Total Counted Not Reportable Sodium 146 H Potassium 4.4 Chloride 118 H Carbon Dioxide 22.0 Anion Gap 6 BUN 61 H Creatinine 2.39 H Estim Creat Clear Calc 27.06 Est GFR (MDRD) Af Amer 34 L Est GFR (MDRD) Non-Af 28 L BUN/Creatinine Ratio 25.5 H Glucose 82 Calcium 8.5 Discharge Diet: Renal Diet Discharge Activity: Return to Normal Activity Call your doctor if you observe: Shortness of breath, Fainting spells, - - vomiting blood. increased dark tarry stool. Home Medications: Medications to take at Discharge Losartan/Hydrochlorothiazide [Losartan-Hctz 50-12.5 mg Tab] 1 tab PO BID 10/31/18 Metoprolol Succinate [Toprol Xl] 50 mg PO DAILY 10/31/18 Multivit-Min/FA/Lycopen/Lutein [Centrum Silver Men Tablet] 1 tab PO DAILY 10/31/18 [place]-3S/Dha/Epa/Fish Oil/D3 [[place]-3 + D Softgel] 1 each PO DAILY 10/31/18 Iron Polysaccharide Complex [Ferrex 150] 150 mg PO DAILYCM #30 cap 11/03/18 Pantoprazole Sodium [Protonix] 40 mg PO BID #60 tab 11/03/18 Sucralfate [Carafate] 1 gm PO 1HR_ACHS #120 tab 11/03/18 Amlodipine Besylate 5 mg PO DAILY 11/10/18 Primary Care Physician: Juliana Jauregui DO [Primary Care Provider] - Within 1 Week Please Follow Up With: Dudley Aguilar MD Disposition: Home Minutes spent on discharge:: 40 Patient Condition:: Fair Medical Necessity - Tobacco Use Smoking Status: Former smoker Tobacco Use: Cigarettes Meaningful Use Info Meaningful Use Diagnoses (Choose all that apply): None applicable Code Visit Inpatient E&M: 95770 Disch Hosp
--- NOTE | 2018-11-11 14:26 | DS.PCM_ITS ---
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 Patient underwent an EGD that showed an adherent clot to the ulcer. Recommend patient continue with the PPI and Carafate. Patient was here earlier this month with the same but did not take his PPI or Carafate given his chronic kidney disease. Patient is made that decision on their own without notifying any physicians, including his warp tension tester. Patient did receive 1 unit of packed red blood cells but his he moglobin has remained stable. Dr. Aguilar would like to see them back in the office in about a week's time and then have a repeat endoscopy in about 3-4 weeks. Patient already has a prescription for his PPI and Carafate that was sent to [facility] on the . Patient will continue with those. Went back to speak with the patient and his . His states that he cannot be transferred because his hemoglobin is 8 and the nurse practitioner that works with his manager culinary in [place] state that he can be transferred that needs to have a hemoglobin of 11. Patient seen and examined independently. Data reviewed. I agree with the above note by the physician dental front office assistant. Indicated to her that he does not require any additional transfusions at this time. She states that he received 2 units and then another one today of blood during this admission. I went and spoke to the blood bank and they inform me that he only received 1 unit of packed red blood cells though was typed and screened for 2. Patient did receive 2 units during the previous admission, however. The patient's insist that he be transferred. I told him that there is really no clear indication for transfer. He still has some dark stools but his hemoglobin has remained stable and some of this dark stool may be some residual blood that is spinal still finally coming out of his system but does not appear that he is actively bleeding at this time. Patient's diet has been advanced and is otherwise remaining stable. She stated that she will take him to another hospital to be admitted. [] Patient Problems: Active and Suspected Problems (Last Reviewed 11/10/18 @ 01:24 by Mehrdad Biggs MD) Upper GI bleed (Acute) Acute blood loss anemia (Acute) - Physical Exam General: Alert, No apparent distress HEENT: Atraumatic, Normocephalic Oral: Moist Mucosa, No Gingival or Mucosal Lesions/ Ulcerations Neck: No Nodes, Thyroid Normal Size and Texture Lungs: Clear to auscultation, Normal air movement, No rhonchi, No wheeze Cardiovascular: Regular rate, Regular Rhythm, Normal S1, Normal S2, No murmurs Abdomen: Bowel Sounds Present, Soft, Non Tender, Non-Distended Vital Signs Temp Pulse Resp BP Pulse Ox 36.8 C 93 16 146/54 H 98 11/11/18 01:40 11/11/18 10:00 11/11/18 01:40 11/11/18 01:40 11/11/18 01:40 Oxygen Delivery Method Room Air Weight: 85.9 kg Body Mass Index (BMI) 25.7 Intake and Output for Last 24 Hours 11/09/18 11/10/18 11/11/18 23:59 23:59 23:59 Intake Total 2249.1 / 2249.1 1796.6 / 1796.6 Output Total 625 / 625 2150 / 2150 Balance 1624.1 / 1624.1 -353.4 / -353.4 Microbiology Past 72 Hours 11/09/18 23:48 Stool Occult Blood (ROBBIN) - Final Stool Occult Blood Positive Laboratory Tests Past 24 Hrs 11/10/18 11/10/18 11/11/18 17:05 23:11 05:10 WBC 6.5 RBC 2.78 L Hgb 8.1 L 8.1 L 7.7 L Hct 24.6 L 24.3 L 24.1 L MCV 86.7 MCH 27.7 MCHC 32.0 RDW 17.1 H RDW Differential 52.6 H Plt Count 222 MPV 10.4 Immature Gran % (Auto) 0.300 Neut % (Auto) 65.7 Lymph % (Auto) 17.7 L [place] % (Auto) 7.8 Eos % (Auto) 7.4 H Baso % (Auto) 1.1 H Absolute Neuts (auto) 4.2 Absolute Lymphs (auto) 1.14 Total Counted Not Reportable Sodium Potassium Chloride Carbon Dioxide Anion Gap BUN Creatinine Estim Creat Clear Calc Est GFR (MDRD) Af Amer Est GFR (MDRD) Non-Af BUN/Creatinine Ratio Glucose Calcium 11/11/18 11/11/18 05:10 12:53 WBC 6.9 RBC 2.97 L Hgb 8.3 L Hct 25.7 L MCV 86.5 MCH 27.9 MCHC 32.3 RDW 17.8 H RDW Differential 56.0 H Plt Count 254 MPV 9.9 Immature Gran % (Auto) 0.100 Neut % (Auto) 76.8 H Lymph % (Auto) 11.7 L [place] % (Auto) 5.6 Eos % (Auto) 4.8 Baso % (Auto) 1.0 Absolute Neuts (auto) 5.3 Absolute Lymphs (auto) 0.81 L Total Counted Not Reportable Sodium 146 H Potassium 4.4 Chloride 118 H Carbon Dioxide 22.0 Anion Gap 6 BUN 61 H Creatinine 2.39 H Estim Creat Clear Calc 27.06 Est GFR (MDRD) Af Amer 34 L Est GFR (MDRD) Non-Af 28 L BUN/Creatinine Ratio 25.5 H Glucose 82 Calcium 8.5 Discharge Diet: Renal Diet Discharge Activity: Return to Normal Activity Call your doctor if you observe: Shortness of breath, Fainting spells, - - vomiting blood. increased dark tarry stool. Home Medications: Medications to take at Discharge Losartan/Hydrochlorothiazide [Losartan-Hctz 50-12.5 mg Tab] 1 tab PO BID 10/31/18 Metoprolol Succinate [Toprol Xl] 50 mg PO DAILY 10/31/18 Multivit-Min/FA/Lycopen/Lutein [Centrum Silver Men Tablet] 1 tab PO DAILY 10/31/18 [place]-3S/Dha/Epa/Fish Oil/D3 [[place]-3 + D Softgel] 1 each PO DAILY 10/31/18 Iron Polysaccharide Complex [Ferrex 150] 150 mg PO DAILYCM #30 cap 11/03/18 Pantoprazole Sodium [Protonix] 40 mg PO BID #60 tab 11/03/18 Sucralfate [Carafate] 1 gm PO 1HR_ACHS #120 tab 11/03/18 Amlodipine Besylate 5 mg PO DAILY 11/10/18 Primary Care Physician: Juliana Jauregui DO [Primary Care Provider] - Within 1 Week Please Follow Up With: Dudley Aguilar MD Disposition: Home Minutes spent on discharge:: 40 Patient Condition:: Fair Medical Necessity - Tobacco Use Smoking Status: Former smoker Tobacco Use: Cigarettes Meaningful Use Info Meaningful Use Diagnoses (Choose all that apply): None applicable Code Visit Inpatient E&M: 49257 Disch Hosp
--- NOTE | 2018-11-11 14:26 | DCINST_ITS ---
- Discharge Diagnoses Current Active Problems: Current Active and Chronic Problems (Last Reviewed 11/10/18 @ 01:24 by Mehrdad Biggs MD) Upper GI bleed (Acute) Acute blood loss anemia (Acute) You will use the following diet at home:: Renal (restricted protein/sodium) Your food should be the consistency of: Regular Your liquids should be the consistency of: Regular/Thin Call your doctor if you observe: Shortness of breath, Fainting spells, - - vomiting blood. increased dark tarry stool. Additional Instructions: Follow up with primary care physician for labs (BMP and CBC) in 1 week. Allergies/Adverse Reactions: Allergies No Known Allergies Allergy (Verified 11/09/18 22:33) Medications to take at Discharge Losartan/Hydrochlorothiazide [Losartan-Hctz 50-12.5 mg Tab] 1 tab PO BID 10/31/18 Metoprolol Succinate [Toprol Xl] 50 mg PO DAILY 10/31/18 Multivit-Min/FA/Lycopen/Lutein [Centrum Silver Men Tablet] 1 tab PO DAILY 10/31/18 [place]-3S/Dha/Epa/Fish Oil/D3 [[place]-3 + D Softgel] 1 each PO DAILY 10/31/18 Iron Polysaccharide Complex [Ferrex 150] 150 mg PO DAILYCM #30 cap 11/03/18 Pantoprazole Sodium [Protonix] 40 mg PO BID #60 tab 11/03/18 Sucralfate [Carafate] 1 gm PO 1HR_ACHS #120 tab 11/03/18 Amlodipine Besylate 5 mg PO DAILY 11/10/18 Primary Care Physician: Juliana Jauregui DO [Primary Care Provider] - Within 1 Week Test Results: Test results from this visit will be discussed in further detail at your follow- up appointment, if applicable. Please Follow Up With: Dudley Aguilar MD Proposed Discharge Date: 11/11/18
[2018-11-11 15:14] VITALS: BP 157/70; PULSE 91; RESP 16; TEMP 37.2; O2SAT 98
== END 2018-11-11 15:25 | disposition home or self-care (01) | DRG 811 ==
LOC: ED 11-10 00:58 → MS3 11-10 01:26
PROVIDERS: Surgery; Admitting Provider Hospitalist; Emergency Provider Emergency Medicine; Family Provider Internal Medicine; PCP Internal Medicine; Referring Provider Hospitalist
PROC: 0DJ08ZZ Inspection of Upper Intestinal Tract, Via Natural or Artificial Opening Endoscopic (ICD-10-PCS; CPT 43235; principal; 2018-11-10 11:25)
DX: D62 Acute posthemorrhagic anemia (principal); K22.11 Ulcer of esophagus with bleeding; N18.4 Chronic kidney disease, stage 4 (severe); I12.9 Hypertensive chronic kidney disease with stage 1 through stage 4 chronic kidney disease, or unspecified chronic kidney disease; I73.9 Peripheral vascular disease, unspecified; Z86.718 Personal history of other venous thrombosis and embolism; Z95.828 Presence of other vascular implants and grafts; Z79.82 Long term (current) use of aspirin; Z86.79 Personal history of other diseases of the circulatory system
CPT/HCPCS: 36415; 80048; 82274; 85014; 85018; 85025; 85610; 85730; 86850; 86900; 86920; 97161; 97165; 97530; 99285; J7030; P9016; A4216

== ENCOUNTER → 2018-11-18 | Outpatient (CLI) | payer MEDICARE, SELFPAY ==
[2018-11-14 12:13] VITALS: BMI 25.7
[2018-11-18 17:52] LABS: Absolute Lymphocyte Count 1.45 X10^3/ul (0.83-4.51); Absolute Neutrophil Count 4.5 X10^3/uL (2.0-7.7); Basophil# 0.07 X10^3/uL; Eosinophil# 0.39 X10^3/uL; Eosinophils% 5.4 % (0-5); Hematocrit 27.9 % (40-54); Hemoglobin 8.7 g/dl (13.0-16.5); Lymphocyte # 1.45 X10^3/ul (4.0); Lymphocyte % 20.1 % (19-41); Mean Corp Hgb Conc 31.2 g/gl (32-36); Mean Corpuscular Hgb 27.4 pg (27.0-32.0); Mean Corpuscular Volume 87.7 fL (80-94); Monocyte# 0.82 X10^3/uL; Monocyte% 11.4 % (0-10); Neutrophil # 4.46 X10^3/uL (2.7-7.7); Neutrophil % 61.8 % (47-70); Platelet Count 372 K/mm3 (150-450); RBC Distribution Width CV 16.5 % (11.6-14.6); RBC Distribution Width SD 51.9 fl (35.1-43.9); Red Blood Count 3.18 M/mm3 (4.6-6.2); White Blood Count 7.2 K/mm3 (4.4-11.0)
[2018-11-18 18:02] LABS: POSITIVE COUNT NO; POSITIVE DIFFERENTIAL NO; POSITIVE MORPHOLOGY NO
== END | disposition home or self-care (01) ==
LOC: MTLAB 15:42
PROVIDERS: Family Provider Internal Medicine; PCP Internal Medicine; Referring Provider Internal Medicine; Visit Provider Internal Medicine
DX: K29.71 Gastritis, unspecified, with bleeding (principal)
CPT/HCPCS: 36415; 85025

== ENCOUNTER → 2020-01-01 | Outpatient (CLI) | payer MEDICARE, SELFPAY ==
[2018-11-14 12:13] VITALS: BMI 25.7
--- NOTE | 2020-01-01 15:00 | VDLE_ITS ---
Reason For Study: Pain LLE RIGHT LEFT CFV is compressible, spontaneous, phasic, GSV is normal. competent and demonstrates normal CFV is partially compressible with bright augmentation. itraluminal echoes noted. Normal venous flow Procedure noted. Exam performed in department. FV is compressible, spontaneous, phasic, A preliminary report was called and/or faxed competent and demonstrates normal to [place]. augmentation. POP V is compressible, spontaneous, phasic, competent and demonstrates normal augmentation. T/P Trunk is compressible. PTV is compressible. LT PerV is compressible. Interpretation Summary Chronic venous changes are noted in the left common femoral vein, which is partially compressible and demonstrates bright intraluminal echogenicity. The remainder of the left lower extremity deep venous system is patent and compressible. The left femoral vein and popliteal vein are competent. The left great saphenous vein appears patent and compressible segmentally. Ordering Physician: Onelia Toure Referring Physician: Juliana Jauregui M.D. Performed By: Lindy Acharya RVT
== END | disposition home or self-care (01) ==
LOC: CVS 14:44
PROVIDERS: PCP Internal Medicine; Referring Provider Nurse Practitioner; Visit Provider Nurse Practitioner
DX: M79.662 Pain in left lower leg (principal)
CPT/HCPCS: 93971

== ENCOUNTER 2021-08-02 00:27 | Observation (INO) | payer MEDICARE, SELFPAY ==
[2021-08-02] VITALS (16 sets, daily range): BP systolic 166–199; BP diastolic 76–94; PULSE 61–87; RESP 16–18; TEMP 36.6–37; O2SAT 95–99; BMI 26.7; BMI 24.9
--- NOTE | 2021-08-02 00:59 | EKG12_ITS ---
Test Reason : DYSRHYTHMIA Blood Pressure : / mmHG Vent. Rate : 066 BPM Atrial Rate : 066 BPM P-R Int : 254 ms QRS Dur : 084 ms QT Int : 416 ms P-R-T Axes : 042 -23 193 degrees QTc Int : 436 ms Sinus rhythm with 1st degree A-V block Left ventricular hypertrophy Nonspecific ST and T wave abnormality Abnormal ECG Confirmed by FIFI BLISS, KENDY ([id number]), web content editor DREA BARRY ([id number]) on 08/06/2021 11:27:45 AM Referred By: SPIKE Confirmed By:KENDY CALIX MD
--- NOTE | 2021-08-02 01:17 | EDS_ITS ---
HPI History of Present Illness Chief Complaint: Abn Labs Narrative Narrative: Patient is an 81-year-old male with history of hypertension and reported chronic kidney disease. He states he is on multiple medications for his hypertension but that his kidney disease just being followed by a wild animal caretaker and he has no need for dialysis or any type of treatment. He states that today he was walking his dog down the driveway which she does every day and while doing this he became very fatigued and his legs felt very heavy to the point where he fell and struck his head. He denies any palpitations or chest pain associated with the symptoms. However based on the patient's extreme fatigue with exertion and the fall he went to an outside hospital. There he had a CT which showed no underlying signs of traumatic brain injury. His initial troponin was 0.07 and then the delta increased to 0.22. The outside facility does not have any cardiology available and secondary to this our corduroy cutter operator was contacted as the patient has seen cardiology here approximately 5 years ago. The corduroy cutter operator did agree to accept the patient to the ER and therefore patient was transferred to our facility for repeat evaluation. Upon arrival to the ER the patient denies any chest pain or shortness of breath. [facility] Medical History AAA (abdominal aortic aneurysm) Acute blood loss anemia CKD (chronic kidney disease), stage IV CKD (chronic kidney disease), stage IV DVT (deep venous thrombosis) Essential hypertension Hip fracture requiring operative repair Orthostatic hypotension PAD (peripheral artery disease) Presence of IVC filter PUD (peptic ulcer disease) Upper GI bleed Ventricular tachycardia VTE (venous thromboembolism) Home Medications metoprolol succinate 50 mg PO DAILY 10/31/18 [History Last Taken 11/09/18] lhghhutc-wzh-CS-lycopen-lutein 1 tab PO DAILY 10/31/18 [History Last Taken 11/08/18] iwuri-5l-uxf-epa-fish oil-D3 1 ea PO DAILY 10/31/18 [History Last Taken 11/08/18] amlodipine 5 mg PO DAILY 11/10/18 [History Last Taken 11/09/18] losartan 100 mg PO DAILY 08/02/21 [History Last Taken 08/01/21 10:00] pantoprazole 40 mg PO DAILY 08/02/21 [History Last Taken 07/31/21] Allergy/AdvReac Type Severity Reaction Status Date / Time No Known Allergies Allergy Verified 08/02/21 00:35 Family History Sister Breast cancer Sister Breast cancer Surgical History H/O endoscopy H/O hernia repair H/O repair of dissecting thoracic aneurysm Hx of appendectomy Social History Smoking Status: Former smoker ROS ROS ED Constitutional Constitutional ED: Denies chills or fever(s) ENT ENT ED: Denies sore throat Cardiovascular Cardiovascular: Denies chest pain, palpitations or racing heartbeat Respiratory/Chest Respiratory/Chest: Denies cough or dyspnea Gastrointestinal Gastrointestinal: Denies abdominal pain, diarrhea, nausea or vomiting Genitourinary Genitourinary ED: Denies dysuria Musculoskeletal Musculoskeletal: Reports myalgias Integumentary Denies rash Neurologic Neurologic: Reports weakness; Denies headache(s) Hematologic/Lymphatic Hematologic/Lymphatic: Denies easy bleeding or easy bruising EXAM Physical Exam Const Vital Signs: 08/02/21 00:31 08/02/21 00:37 08/02/21 00:48 Temperature 98.3 F Temperature Source Oral Pulse Rate 70 Respiratory Rate 18 Respiratory Effort Normal Respiratory Pattern Normal Blood Pressure 199/94 H 182/76 H Blood Pressure Mean 129 111 Pulse Ox 97 Oxygen Delivery Method Room Air Positive well nourished and well developed General Appearance ED: well developed HEENT HEENT Narrative: Patient has a hematoma to the left side of the forehead consistent with report of fall and head injury but no signs of depressed or basilar skull fracture Eyes PERRL and EOMs intact bilaterally Neck supple Neck Narrative: No bony deformity or step-off of the cervical spine no midline pain on palpation Chest Wall palpation of chest normal Resp normal respiratory effort and clear to auscultation bilaterally Cardio regular rate and regular rhythm Rate: other Other Details: Radial pulses are plus 2 out of 4 bilaterally are equal and symmetric GI normal to inspection, nondistended, normoactive bowel sounds, non-tender, non- distended and no masses GI Narrative: No voluntary guarding or rigidity no pulsatile mass Auscultation: normoactive bowel sounds Palpation: soft Extremity normal to inspection Neuro oriented x3 and CN's II-XII intact bilaterally Sensorium / Orientation: alert Psych mental status grossly normal Skin no rashes or lesions noted MDM MDM MDM Narrative Medical decision making narrative: Patient presented to the ER hypertensive but otherwise had no complaints and denied any chest pain or shortness of breath. He has chronic kidney disease and this could be a cause for his elevated troponin but his initial value from the outside hospital was 0.07 and did increase to 0.22. A troponin was obtained at our facility when he arrived and it is still elevated at 230 which correlates with his last troponin from the outside hospital. Therefore at this time based on the persistently elevated troponin and the patient symptoms of fatigue with exertion he will be admitted to the hospital for further evaluation of his symptoms and elevated troponin level Lab Data Attestation: I reviewed the patient's lab results. Labs: Laboratory Results - last 24 hr 08/02/21 01:32 Sodium 143 Potassium 4.1 Chloride 112 H Carbon Dioxide 24.0 Anion Gap 7 BUN 38 H Creatinine 2.91 H Estim Creat Clear Calc 20.49 Est GFR (MDRD) Af Amer 27 L Est GFR (MDRD) Non-Af 22 L BUN/Creatinine Ratio 13.1 Glucose 113 H Calcium 8.8 Troponin I High Sens 230 H* Discharge Plan Dx/Rx/DC Orders Clinical Impression: Elevated troponin, CKD (chronic kidney disease), stage IV Disposition Disposition: Acute Care Hospital [facility] Discharge Date/Time: 08/02/21 04:39
[2021-08-02 02:53] LABS: Anion Gap 7 (5-15); BUN 38 mg/dL (7-18); BUN/Creat Ratio 13.1 RATIO (10-20); Calcium,Total 8.8 mg/dL (8.5-10.1); Chloride 112 mmol/L (98-107); Creatinine, Serum 2.91 mg/dL (0.70-1.30); EST Glomerular Filtration Rate 22 mL/min (>60); Est Glom Filt Rate - Afr Amer 27 mL/min (>60); Estimated Creatinine Clearance 20.49 ml/min; Glucose 113 mg/dL (74-106); Potassium 4.1 mmol/L (3.5-5.1); Sodium Level 143 mmol/L (136-145); Troponin-I HS 230 pg/mL (3.0-78.0)
--- NOTE | 2021-08-02 03:59 | PCM.HP.STD ---
HPI - General General Date of Admission: 08/02/21 HPI Narrative PHUONG FAJARDO, is a 81 M with a significant history of abdominal aortic aneurysm; peptic ulcer disease with GI bleed; and CKD stage IV who was sent from [facility] because of abnormal troponin. [facility] ED called Dr. Gaston, cardiology (at [facility]) and was advised to bring patient to our emergency department. Patient originally presented to [facility] ED because while walking his dog he hit his head. He attributes his fall to his legs getting heavy and weak. He denies any chest pain. He denies any shortness of breath. High sensitive troponin at our Hospital was 230. Emergency department doctor at our hospital ([facility]) discussed the case with cardiology who recommended that patient stay at our Hospital and cardiology consulted. Patient tested negative for coronavirus at [facility] ED [facility] Medical History AAA (abdominal aortic aneurysm) Acute blood loss anemia CKD (chronic kidney disease), stage IV CKD (chronic kidney disease), stage IV DVT (deep venous thrombosis) Essential hypertension Hip fracture requiring operative repair Orthostatic hypotension PAD (peripheral artery disease) Presence of IVC filter PUD (peptic ulcer disease) Upper GI bleed Ventricular tachycardia VTE (venous thromboembolism) Home Medications losartan-hydrochlorothiazide 1 tab PO BID 10/31/18 [History Last Taken 11/09/18] metoprolol succinate 50 mg PO DAILY 10/31/18 [History Last Taken 11/09/18] rrccnevi-hlr-VO-lycopen-lutein 1 tab PO DAILY 10/31/18 [History Last Taken 11/08/18] ujwmy-1q-jqx-epa-fish oil-D3 1 ea PO DAILY 10/31/18 [History Last Taken 11/08/18] amlodipine 5 mg PO DAILY 11/10/18 [History Last Taken 11/09/18] pantoprazole 40 mg PO BID #60 tab 11/11/18 [Rx Last Taken Unknown] polysaccharide iron complex [Ferrex 150] 150 mg PO DAILYCM #30 cap 11/11/18 [Rx Last Taken Unknown] sucralfate 1 gm PO 1HR_ACHS #120 tab 11/11/18 [Rx Last Taken Unknown] Allergy/AdvReac Type Severity Reaction Status Date / Time No Known Allergies Allergy Verified 08/02/21 00:35 Family History Sister Breast cancer Sister Breast cancer Surgical History H/O endoscopy H/O hernia repair H/O repair of dissecting thoracic aneurysm Hx of appendectomy Social History Smoking Status: Former smoker ROS ROS Narrative Pertinent positives and pertinent negatives as noted in HPI. All other systems were reviewed and are negative. Vital Signs Vital Signs Vital Signs: 08/02/21 00:31 08/02/21 00:37 08/02/21 00:48 Temperature 98.3 F Temperature Source Oral Pulse Rate 70 Respiratory Rate 18 Respiratory Effort Normal Respiratory Pattern Normal Blood Pressure 199/94 H 182/76 H Blood Pressure Mean 129 111 Pulse Ox 97 Oxygen Delivery Method Room Air Weight Weight: 86.9 kg Body Mass Index (BMI) 26.7 Physical Exam Narrative Physical exam: General: Well-nourished, well-developed. Head: Left supraorbital area bruise. No tenderness Eyes: PERRLA, EOMI ENT, no trauma, moist mucous membranes, no rhinorrhea Neck: Nontender, full range of motion, no spinal tenderness, deformities, step-off CVS: Regular rate and rhythm. S1-S2 present. No murmur, gallop or rub. Respiratory : clear to auscultation bilaterally, chest wall nontender, no wheezing Abdomen: Soft, nontender, nondistended, normal bowel sounds, no masses : Deferred Back: Nontender, no CVA tenderness, no midline spinal tenderness, deformities, step-offs Extremities: Nontender full range of motion, no trauma Skin: Normal color, no trauma, abrasions Neuro: Alert, oriented, cranial nerves II through XII grossly intact. Psychiatry: Normal mood. Normal affect. Not depressed. Not anxious. Results Lab / Micro Data Result Diagrams: 08/02/21 01:32 08/02/21 01:32 Labs: Laboratory Results - last 24 hr 08/02/21 01:32: Sodium 143, Potassium 4.1, Chloride 112 H, Carbon Dioxide 24.0, Anion Gap 7, BUN 38 H, Creatinine 2.91 H, Estim Creat Clear Calc 20.49, Est GFR (MDRD) Af Amer 27 L, Est GFR (MDRD) Non-Af 22 L, BUN/Creatinine Ratio 13.1, Glucose 113 H, Calcium 8.8, Troponin I High Sens 230 H* Assessment & Plan Assessment/Plan (1) Elevated troponin: (2) Essential hypertension: PLAN: Elevated troponin Reportedly troponin at outside hospital was 0.07 and 0.22 Review of labs at the emergent department showed high serum troponin level of 230 Trend troponin EKG from outside hospital showed some T wave inversions and flattening in leads I, V2 and V6. EKG at our Hospital showed some ST depressions in lead I and V6. Old records reviewed showed the patient had a stress test at our hospital on 11/03/2018. The stress test at that time was negative. However a gated Cardiolite study at peak stress was not obtained Patient has a history of a GI bleed aspirin not ordered in the setting of unconfirmed acute coronary artery disease We will keep patient n.p.o. except meds and will consult cardiology Hypertension urgency Patient systolic blood pressure of more than 180 Home blood pressure medicine continued. As needed hydralazine ordered. Trend blood pressure and adjust blood pressure medications. CKD stage IV Stable. DVT prophylaxis: SCD ordered. Charges/Coding Visit Charges OBSV E&M: 57799 Initial observation care L2
--- NOTE | 2021-08-02 04:59 | PCS.PANDOC ---
PANDEMIC DOCUMENTATION INITIATED: Date: 03/10/2021 Time: 190
--- NOTE | 2021-08-02 05:01 | PCS.PANDOC ---
PANDEMIC DOCUMENTATION INITIATED: Date: 03/10/2021 Time: 190
--- NOTE | 2021-08-02 05:35 | EKG12_ITS ---
Test Reason : ELEVATED TROPONIN Blood Pressure : / mmHG Vent. Rate : 070 BPM Atrial Rate : 070 BPM P-R Int : 300 ms QRS Dur : 084 ms QT Int : 402 ms P-R-T Axes : 000 -26 128 degrees QTc Int : 434 ms Sinus rhythm with 1st degree A-V block Left ventricular hypertrophy with repolarization abnormality Abnormal ECG When compared with ECG of 02-AUG-2021 01:09, MANUAL COMPARISON REQUIRED, DATA IS UNCONFIRMED Confirmed by FREEDOM BLISS, CAROL ([id number]), editorial assistant DREA BARRY ([id number]) on 08/08/2021 8:02:05 AM Referred By: JOEL Confirmed By:STANLEY LOJA MD
[2021-08-02 06:00] LABS: Cholesterol 211 mg/dL (200); High Density Lipoprotein 52 mg/dL; Triglycerides 113 mg/dL; Troponin-I HS 168 pg/mL (3.0-78.0); Very Low Density Lipoprotein 23 mg/dL (5-40)
[2021-08-02 10:09] LABS: Troponin-I HS 144 pg/mL (3.0-78.0)
[2021-08-02] MEDS: 0.9% Normal Saline 1,000 ML 75 ML IV (13:05)
--- NOTE | 2021-08-02 14:24 | CON.PCM.CA_ITS ---
Assessment & Plan Assessment/Plan (1) CKD (chronic kidney disease), stage IV: (2) PAD (peripheral artery disease): (3) DVT (deep venous thrombosis): QUALIFIERS: Chronicity: chronic DVT location: lower extremity Laterality: left (4) Essential hypertension: (5) Elevated troponin: PLAN: 81-year-old patient transferred from [facility] Due to e mildly l elevated, high sensitive troponin I patient was seen at the [facility] in [place] Following, sustained bruises to the right forehead According to history he was taking his dog to the mailbox where he felt weakness and heaviness in his leg he denied any syncopal episode or dizziness. Evaluation at [facility] with CT head negative and had no neurological deficit Series of cardiac biomarkers showed mild elevation of troponin Cardiac care plan and recommendations; 1. This patient high risk with multiple risk factors and complexity With CKD, history of anemia with history of upper GI bleed with a DVT and status post IVC filter Essential hypertension From cardiac standpoint he had a evaluation in the office of his primary highway research engineer Dr. Torre With a negative cardiac work-up with myocardial perfusion study and echocardiographic evaluation showed LV function preserved. 2. On select banker he had ventricular bigemi. And currently is on beta- samia we'll continue to monitor electrolytes and renal function 3. Patient has no symptoms of chest pain and would be cautious in rec ommendation of any cardiac cath at this point, due to history of anemia with upper GI bleed as well as history of possible contrast-induced nephropathy requiring dialysis as his baseline creatinine is abnormal around 2.9. The mild elevation of cardiac biomarkers high sensitive troponin is likely type II W[place] with demand myocardial ischemia Patient had anemia with chronic renal disease. 4. We'll continue to monitor and follow-up clinically during this admission. HPI Consult Data Date of Consult: 08/02/21 HPI Narrative Reason for Consultation: Elevated cardiac enzymes/High sensitive troponinI HPI Narrative: PHUONG FAJARDO, is a 81 M who presents [facility] Medical History AAA (abdominal aortic aneurysm) Acute blood loss anemia CKD (chronic kidney disease), stage IV CKD (chronic kidney disease), stage IV DVT (deep venous thrombosis) Essential hypertension Hip fracture requiring operative repair Orthostatic hypotension PAD (peripheral artery disease) Presence of IVC filter PUD (peptic ulcer disease) Upper GI bleed Ventricular tachycardia VTE (venous thromboembolism) Home Medications metoprolol succinate 50 mg PO DAILY 10/31/18 [History Last Taken 08/01/21 10:00] jriqaosm-jzx-AK-lycopen-lutein 1 tab PO DAILY 10/31/18 [History Last Taken 07/31/21] wztad-7s-glj-epa-fish oil-D3 1 ea PO DAILY 10/31/18 [History Last Taken 07/31/21] amlodipine 5 mg PO DAILY 11/10/18 [History Last Taken 08/01/21 10:00] losartan 100 mg PO DAILY 08/02/21 [History Last Taken 08/01/21 10:00] pantoprazole 40 mg PO DAILY 08/02/21 [History Last Taken 07/31/21] Allergy/AdvReac Type Severity Reaction Status Date / Time No Known Allergies Allergy Verified 08/02/21 00:35 Family History Sister Breast cancer Sister Breast cancer Surgical History H/O endoscopy H/O hernia repair H/O repair of dissecting thoracic aneurysm Hx of appendectomy Social History Smoking Status: Former smoker Physical Exam Narrative Patient alert orientated x3 Seen and evaluated today at bedside along with the nursing staff Daughter at bedside Transferred from [facility] following a fall with a negative CT head Reason of transfer is because of elevated cardiac enzymes No active chest pain at time of evaluation ivf embryologist showed underlying normal sinus with ventricular bigeminy Cardiovascular examination; S1-S2 is regular There is no murmur no systolic or diastolic murmur, no pericardial rub or gallop Chest examination; clear to auscultation bilateral Abdomen soft Examination lower extremity no clubbing no cyanosis no lower extremity edema. Risk Stratification Risk Stratification Applicable: Yes Age >/= 65: Yes >/= 3 CAD Risk Factors (HTN, HLD, DM, family hx of CAD, or current smoker): Yes Aspirin Use in the Past 7 Days: No Severe Angina (>/= episodes in 24 hours): No EKG ST Changes >/= 0.5mm: No Positive Cardiac Marker: Yes DA Risk Stratification Score: 3 DA % Risk: 13% Risk Objective Data Vital Signs: Vital Signs Temp Pulse Resp BP Pulse Ox 98.6 F 67 17 191/79 H 99 08/02/21 12:35 08/02/21 13:11 08/02/21 12:35 08/02/21 12:35 08/02/21 12:35 Oxygen Delivery Method Room Air Weight: 178 lb 9.191 oz Body Mass Index (BMI) 24.9 Intake & Output: Intake and Output for Last 24 Hours 07/31/21 08/01/21 08/02/21 23:59 23:59 23:59 Intake Total 240 / 240 Balance 240 / 240 Lab / Micro Data Result Diagrams: 08/02/21 01:32 08/02/21 01:32 Labs: Laboratory Results - last 24 hr 08/02/21 01:32: Sodium 143, Potassium 4.1, Chloride 112 H, Carbon Dioxide 24.0, Anion Gap 7, BUN 38 H, Creatinine 2.91 H, Estim Creat Clear Calc 20.49, Est GFR (MDRD) Af Amer 27 L, Est GFR (MDRD) Non-Af 22 L, BUN/Creatinine Ratio 13.1, Glucose 113 H, Calcium 8.8, Troponin I High Sens 230 H* 08/02/21 05:22: Troponin I High Sens 168 H*, Triglycerides 113, Cholesterol 211 H, LDL Cholesterol 136 H, VLDL Cholesterol 23, HDL Cholesterol 52 08/02/21 08:30: Troponin I High Sens 144 H* Cardiology Labs/Tests 08/02/21 01:32: Sodium 143, Potassium 4.1, Chloride 112 H, Carbon Dioxide 24.0, Anion Gap 7, BUN 38 H, Creatinine 2.91 H, Est GFR (MDRD) Af Amer 27 L, Est GFR (MDRD) Non-Af 22 L, BUN/Creatinine Ratio 13.1, Glucose 113 H, Calcium 8.8 08/02/21 05:22: Triglycerides 113, Cholesterol 211 H, LDL Cholesterol 136 H, VLDL Cholesterol 23, HDL Cholesterol 52 Rhythm: Normal sinus rhythm with ventricular bigeminy EKG: Normal sinus rhythm, no significant ST?the abnormalities noted
--- NOTE | 2021-08-02 14:25 | NURSING ---
walked patient per Dr dalton down hallway. pt was mostly steady. some wavering during the procces of standing up.dr dalton aware of results made during walk.
--- NOTE | 2021-08-02 15:12 | CASEMGMT ---
JANET CM in to discuss TORRES form with patient. RN CM explained TORRES form, patient voiced understanding. Pt signed form and filed in chart. Pt provided with a copy of signed TORRES form. Patient had no further questions or concerns at this time.
[2021-08-02 16:11] LABS: Magnesium 2.2 mg/dL (1.6-2.6)
--- NOTE | 2021-08-02 17:43 | PN.HOSP_ITS ---
Subjective Subjective Follow-up on elevated troponins: Patient was seen and examined. He denies any chest pain, dizziness, SOB. Objective Data Objective Data Vital Signs: Vital Signs Temp Pulse Resp BP Pulse Ox 98.6 F 61 17 191/79 H 99 08/02/21 12:35 08/02/21 16:20 08/02/21 12:35 08/02/21 12:35 08/02/21 16:55 Oxygen Delivery Method Room Air Weight: 81 kg Body Mass Index (BMI) 24.9 Intake & Output: Intake and Output for Last 24 Hours 07/31/21 08/01/21 08/02/21 23:59 23:59 23:59 Intake Total 240 / 240 Balance 240 / 240 Lab / Micro Data Result Diagrams: 08/02/21 01:32 08/02/21 01:32 Labs: Laboratory Results - last 24 hr 08/02/21 01:32: Sodium 143, Potassium 4.1, Chloride 112 H, Carbon Dioxide 24.0, Anion Gap 7, BUN 38 H, Creatinine 2.91 H, Estim Creat Clear Calc 20.49, Est GFR (MDRD) Af Amer 27 L, Est GFR (MDRD) Non-Af 22 L, BUN/Creatinine Ratio 13.1, Glucose 113 H, Calcium 8.8, Troponin I High Sens 230 H* 08/02/21 05:22: Troponin I High Sens 168 H*, Triglycerides 113, Cholesterol 211 H, LDL Cholesterol 136 H, VLDL Cholesterol 23, HDL Cholesterol 52 08/02/21 08:30: Troponin I High Sens 144 H* 08/02/21 15:26: Magnesium 2.2 Physical Exam Narrative Physical exam: General: Well-nourished, well-developed. Head: Left supraorbital area bruise. No tenderness Eyes: PERRLA, EOMI ENT, no trauma, moist mucous membranes, no rhinorrhea Neck: Nontender, full range of motion, no spinal tenderness, deformities, step- off CVS: Regular rate and rhythm. S1-S2 present. No murmur, gallop or rub. Respiratory : clear to auscultation bilaterally, chest wall nontender, no wheezing Abdomen: Soft, nontender, nondistended, normal bowel sounds, no masses : Deferred Back: Nontender, no CVA tenderness, no midline spinal tenderness, deformities, step-offs Extremities: Nontender full range of motion, no trauma Skin: Normal color, no trauma, abrasions Neuro: Alert, oriented, cranial nerves II through XII grossly intact. Psychiatry: Normal mood. Normal affect. Not depressed. Not anxious. Assessment & Plan Assessment/Plan (1) Elevated troponin: (2) Essential hypertension: PLAN: 1. Elevated troponin likely secondary to demand ischemia secondary to Hypertensive emergency vs renal insufficiency No acute ST-T abnormalities Cardiology following Cannot be on aspirin because of h/o GI bleed 2. Hypertension urgency, will resume home meds and prn hydralazine 3. CKD stage IV, Cr is 2.91, will trend labs 4. H/o DVT s/p IVC filter 5. DVT prophylaxis: SCD ordered. Charges/Coding Visit Charges Inpatient E&M: 84330 Subs Hosp L2
[2021-08-02] MEDS: 0.9% Saline Lock 10 ML Syringe IV (22:08)
[2021-08-03] VITALS (14 sets, daily range): BP systolic 155–198; BP diastolic 68–91; PULSE 62–89; RESP 16–18; TEMP 36.5–36.7; O2SAT 95–97
--- NOTE | 2021-08-03 03:59 | NURSING ---
Pt called and wanted an update on his condition and what BP readings were over last 24 hrs. Pt made aware and she asked that we call her if the BP starts going back up.
[2021-08-03] MEDS: 0.9% Normal Saline 1,000 ML 75 ML IV ×2 (05:06→13:30)
[2021-08-03 05:20] LABS: Absolute Lymphocyte Count 1.31 X10^3/uL (0.83-4.51); Absolute Neutrophil Count 3.4 X10^3/uL (2.0-7.7); Basophil# 0.06 X10^3/uL; Eosinophil# 0.37 X10^3/uL; Eosinophils% 6.4 % (0-5); Hematocrit 34.2 % (40-54); Hemoglobin 11.1 g/dL (13.0-16.5); Lymphocyte # 1.31 X10^3/ul (0.83-4.51); Lymphocyte % 22.7 % (19-41); Mean Corp Hgb Conc 32.5 g/dL (32-36); Mean Corpuscular Hgb 29.4 pg (27.0-32.0); Mean Corpuscular Volume 90.5 fL (80-94); Mean Platelet Vol. 10.6 fl (6.2-12.0); Monocyte# 0.65 X10^3/uL; Monocyte% 11.2 % (0-10); NRBC Flagged by Analyzer 0 % (0-5); Neutrophil # 3.38 X10^3/uL (2.7-7.7); Neutrophil % 58.5 % (47-70); Platelet Count 221 K/mm3 (150-450); RBC Distribution Width CV 13.3 % (11.6-14.6); RBC Distribution Width SD 43.8 fl (35.1-43.9); Red Blood Count 3.78 M/mm3 (4.6-6.2); White Blood Count 5.8 K/mm3 (4.4-11.0)
[2021-08-03 05:50] LABS: ALB/GLOB Ratio 0.8 RATIO (0.9-2.4); AST(SGOT) 17 U/L (15-37); Alanine Aminotransfer ALT/SGPT 16 U/L (16-61); Albumin, Serum 2.5 g/dL (3.2-5.0); Alkaline Phosphatase 42 U/L (45-117); Anion Gap 8 (5-15); BUN 40 mg/dL (7-18); BUN/Creat Ratio 13.3 RATIO (10-20); Calcium,Total 8.4 mg/dL (8.5-10.1); Chloride 113 mmol/L (98-107); EST Glomerular Filtration Rate 21 mL/min (>60); Est Glom Filt Rate - Afr Amer 26 mL/min (>60); Estimated Creatinine Clearance 19.87 ml/min; Globulin 3.2 g/dL (2.2-4.2); Glucose 78 mg/dL (74-106); Protein, Total 5.7 g/dL (6.4-8.2); Sodium Level 144 mmol/L (136-145)
[2021-08-03] MEDS: Pantoprazole Sodium 40 MG Tablet PO (08:41)
[2021-08-03] MEDS: amLODIPine 10 MG Tablet PO (08:41)
[2021-08-03] MEDS: Metoprolol(XL)Succ 50 MG Tablet PO (08:41)
[2021-08-03] MEDS: 0.9% Saline Lock 10 ML Syringe IV (08:47)
--- NOTE | 2021-08-03 11:02 | PN.HOSP_ITS ---
Subjective Subjective Follow-up on elevated troponins: Patient was seen and examined. No acute events overnight. He denies any chest pain, dizziness, SOB. Objective Data Objective Data Vital Signs: Vital Signs Temp Pulse Resp BP Pulse Ox 97.8 F 73 16 155/79 H 96 08/03/21 10:01 08/03/21 10:01 08/03/21 10:01 08/03/21 10:01 08/03/21 10:01 Oxygen Delivery Method Room Air Weight: 81 kg Body Mass Index (BMI) 24.9 Intake & Output: Intake and Output for Last 24 Hours 08/01/21 08/02/21 08/03/21 23:59 23:59 23:59 Intake Total 480 / 480 1000 / 1000 Balance 480 / 480 1000 / 1000 Lab / Micro Data Result Diagrams: 08/03/21 04:21 08/03/21 04:21 Labs: Laboratory Results - last 24 hr 08/02/21 15:26: Magnesium 2.2 08/03/21 04:21: WBC 5.8, RBC 3.78 L, Hgb 11.1 L, Hct 34.2 L, MCV 90.5, MCH 29.4, MCHC 32.5, RDW Std Deviation 43.8, RDW Coeff of Skylar 13.3, Plt Count 221, MPV 10.6, Immature Gran % (Auto) 0.200, Neut % (Auto) 58.5, Lymph % (Auto) 22.7, [place] % (Auto) 11.2 H, Eos % (Auto) 6.4 H, Baso % (Auto) 1.0, Absolute Neuts (auto) 3.4, Absolute Lymphs (auto) 1.31, Nucleated RBC % 0 08/03/21 04:21: Sodium 144, Potassium 4.0, Chloride 113 H, Carbon Dioxide 23.0, Anion Gap 8, BUN 40 H, Creatinine 3.00 H, Estim Creat Clear Calc 19.87, Est GFR (MDRD) Af Amer 26 L, Est GFR (MDRD) Non-Af 21 L, BUN/Creatinine Ratio 13.3, Glucose 78, Calcium 8.4 L, Total Bilirubin 0.50, AST 17, ALT 16, Alkaline Phosphatase 42 L, Total Protein 5.7 L, Albumin 2.5 L, Globulin 3.2, Albumin/Globulin Ratio 0.8 L Physical Exam Narrative Physical exam: General: Alert, Oriented x3, Cooperative, appears frail HEENT: Left supraorbital bruise with erythema Oral: Moist Mucosa Neck: Supple Lungs: Diminished to auscultation Cardiovascular: HS I+II, regular, no murmurs Abdomen: Bowel Sounds Present, Soft, Non Tender Extremities: No edema Assessment & Plan Assessment/Plan (1) Elevated troponin: (2) Essential hypertension: PLAN: 1. Elevated troponin likely secondary to demand ischemia secondary to Hypertensive emergency vs renal insufficiency No acute ST-T abnormalities. Cardiology following Continue on metoprolol, cannot anticoagulate on account of GI bleed. Stress test in a.m. 2. Hypertension urgency, BP better controlled Continue metoprolol 50 mg daily, amlodipine 10 mg daily, hydralazine as needed 3. CKD stage IV, Cr is 3.00, Will give gentle IV fluids for 1 L, repeat blood work in a.m. 4. H/o DVT s/p IVC filter 5. DVT prophylaxis: SCD ordered. Charges/Coding Visit Charges Inpatient E&M: 99876 Subs Hosp L2
[2021-08-03] MEDS: Aspirin 325 MG Tablet PO (13:52)
--- NOTE | 2021-08-03 14:41 | PCM.PN.CARD ---
Subjective Subjective Seen and evaluated today at bedside No event from last night No symptoms of chest pain reported, family at bedside at time of evaluation Objective Data Patient comfortable alert and orientated Cardiac examination S1-S2 regular, no pericardial rub no gallop Chest examination; clear to auscultation bilateral Examination abdomen not distended soft Examination lower extremity no clubbing no cyanosis no lower extremity edema. Vital Signs: Vital Signs Temp Pulse Resp BP Pulse Ox 97.8 F 73 16 155/79 H 96 08/03/21 10:08/03/21 10:08/03/21 10:08/03/21 10:08/03/21 10:01 Oxygen Delivery Method Room Air Weight: 178 lb 9.191 oz Body Mass Index (BMI) 24.9 Intake & Output: Intake and Output for Last 24 Hours 08/01/21 08/02/21 08/03/21 23:59 23:59 23:59 Intake Total 480 / 480 1917.5 / 1917.5 Balance 480 / 480 1917.5 / 1917.5 Lab / Micro Data Result Diagrams: 08/03/21 04:21 08/03/21 04:21 Labs: Laboratory Results - last 24 hr 08/02/21 15:26: Magnesium 2.2 08/03/21 04:21: WBC 5.8, RBC 3.78 L, Hgb 11.1 L, Hct 34.2 L, MCV 90.5, MCH 29.4, MCHC 32.5, RDW Std Deviation 43.8, RDW Coeff of Skylar 13.3, Plt Count 221, MPV 10.6, Immature Gran % (Auto) 0.200, Neut % (Auto) 58.5, Lymph % (Auto) 22.7, [place] % (Auto) 11.2 H, Eos % (Auto) 6.4 H, Baso % (Auto) 1.0, Absolute Neuts (auto) 3.4, Absolute Lymphs (auto) 1.31, Nucleated RBC % 0 08/03/21 04:21: Sodium 144, Potassium 4.0, Chloride 113 H, Carbon Dioxide 23.0, Anion Gap 8, BUN 40 H, Creatinine 3.00 H, Estim Creat Clear Calc 19.87, Est GFR (MDRD) Af Amer 26 L, Est GFR (MDRD) Non-Af 21 L, BUN/Creatinine Ratio 13.3, Glucose 78, Calcium 8.4 L, Total Bilirubin 0.50, AST 17, ALT 16, Alkaline Phosphatase 42 L, Total Protein 5.7 L, Albumin 2.5 L, Globulin 3.2, Albumin/Globulin Ratio 0.8 L Cardiology Labs/Tests 08/02/21 15:26: Magnesium 2.2 08/03/21 04:21: WBC 5.8, RBC 3.78 L, Hgb 11.1 L, Hct 34.2 L, MCV 90.5, MCH 29.4, MCHC 32.5, Plt Count 221, MPV 10.6, Immature Gran % (Auto) 0.200, Neut % (Auto) 58.5, Lymph % (Auto) 22.7, [place] % (Auto) 11.2 H, Eos % (Auto) 6.4 H, Baso % (Auto) 1.0, Absolute Neuts (auto) 3.4, Nucleated RBC % 0 08/03/21 04:21: Sodium 144, Potassium 4.0, Chloride 113 H, Carbon Dioxide 23.0, Anion Gap 8, BUN 40 H, Creatinine 3.00 H, Est GFR (MDRD) Af Amer 26 L, Est GFR (MDRD) Non-Af 21 L, BUN/Creatinine Ratio 13.3, Glucose 78, Calcium 8.4 L, Total Bilirubin 0.50 Rhythm: Normal sinus rhythm, with PVC and episode of nonsustained V. tach/3 beats Assessment & Plan Assessment/Plan (1) Upper GI bleed: (2) Presence of IVC filter: (3) CKD (chronic kidney disease), stage IV: (4) Ventricular tachycardia: (5) PAD (peripheral artery disease): (6) Elevated troponin: PLAN: Patient is a 81-year-old who was transferred from [facility] in the [facility] due to mild elevated high sensitive troponin High risk patient with a history of chronic renal disease and elevated creatinine, history of upper GI bleed with anemia and history of DVT requiring IVC filter placement in addition to history of hypertension He had no active symptoms of chest pain and has a prior evaluation with the nuclear stress test and echo which showed no evidence of reversible myocardial ischemia. This presentation is symptoms of palpitation shortness of breath and he had a fall sustained trauma to the right forehead. Cardiac care plan recommendations; 1. I reviewed his the cardiac telemetry as well as his current medication will continue current treatment Prior echocardiogram in October 2018 showed LV function preserved ejection fraction 65% with mild MR Similar time in November 03, 2018 patient had rec adenosine nuclear stress test which showed gated study showed LV function preserved with no evidence of reversible myocardial ischemia. 2. Chronic renal insufficiency and risk of contrast-induced nephropathy not a candidate for cardiac catheterization. We will evaluate with the Lexiscan sestamibi marker perfusion study. Patient history of hip fracture requiring operative report with a history of PAD and not a candidate for treadmill nuclear stress test.
[2021-08-03] MEDS: hydrALAZINE 20 MG/ML Vial 10 MG IV (16:04)
[2021-08-03] MEDS: hydrALAZINE 25 MG Tablet PO (17:44)
[2021-08-04 03:02] VITALS: BP 149/65; PULSE 68; RESP 18; TEMP 36.9; O2SAT 96
[2021-08-04 03:05] VITALS: PULSE 80
[2021-08-04 06:12] LABS: Absolute Lymphocyte Count 1.37 X10^3/uL (0.83-4.51); Absolute Neutrophil Count 4.8 X10^3/uL (2.0-7.7); Basophil# 0.08 X10^3/uL; Basophil% 1.1 % (0-1); Eosinophil# 0.53 X10^3/uL; Hematocrit 34.5 % (40-54); Hemoglobin 11.3 g/dL (13.0-16.5); Lymphocyte # 1.37 X10^3/ul (0.83-4.51); Lymphocyte % 18.2 % (19-41); Mean Corp Hgb Conc 32.8 g/dL (32-36); Mean Corpuscular Hgb 29.4 pg (27.0-32.0); Mean Corpuscular Volume 89.6 fL (80-94); Monocyte# 0.77 X10^3/uL; Monocyte% 10.2 % (0-10); NRBC Flagged by Analyzer 0 % (0-5); Neutrophil # 4.75 X10^3/uL (2.7-7.7); Neutrophil % 63.1 % (47-70); Platelet Count 243 K/mm3 (150-450); RBC Distribution Width CV 13.5 % (11.6-14.6); RBC Distribution Width SD 44.1 fl (35.1-43.9); Red Blood Count 3.85 M/mm3 (4.6-6.2); White Blood Count 7.5 K/mm3 (4.4-11.0)
[2021-08-04] MEDS: Aspirin 325 MG Tablet PO (06:20)
[2021-08-04 06:46] LABS: ALB/GLOB Ratio 0.7 RATIO (0.9-2.4); AST(SGOT) 20 U/L (15-37); Alanine Aminotransfer ALT/SGPT 17 U/L (16-61); Albumin, Serum 2.5 g/dL (3.2-5.0); Alkaline Phosphatase 41 U/L (45-117); Anion Gap 9 (5-15); BUN 39 mg/dL (7-18); BUN/Creat Ratio 13.6 RATIO (10-20); Calcium,Total 8.5 mg/dL (8.5-10.1); Chloride 115 mmol/L (98-107); Creatinine, Serum 2.87 mg/dL (0.70-1.30); EST Glomerular Filtration Rate 23 mL/min (>60); Est Glom Filt Rate - Afr Amer 27 mL/min (>60); Estimated Creatinine Clearance 20.77 ml/min; Globulin 3.4 g/dL (2.2-4.2); Glucose 77 mg/dL (74-106); Protein, Total 5.9 g/dL (6.4-8.2); Sodium Level 145 mmol/L (136-145)
[2021-08-04 08:14] VITALS: BP 158/79; PULSE 69; RESP 18; TEMP 36.5; O2SAT 96
--- NOTE | 2021-08-04 09:57 | CASEMGMT ---
This RN CM to room with TORRES form and pt is out of dept for ST at this time. CM will attempt later. SStaten RN CM
[2021-08-04 10:31] VITALS: BP 158/79; PULSE 69
[2021-08-04] MEDS: Metoprolol(XL)Succ 50 MG Tablet PO (10:31)
[2021-08-04] MEDS: Pantoprazole Sodium 40 MG Tablet PO (10:31)
--- NOTE | 2021-08-04 10:32 | STRESSREP ---
Stress Test Report Date: 08-04-2021 Procedure: Pharmacologic stress nuclear imaging study Indications: Abnormal cardiac enzymes; nonsustained ventricular tachycardia; peripheral arterial occlusive disease; chronic renal insufficiency Consent: Per the patient Procedure: The patient underwent pharmacologic (Regadenoson 0.4mg ) evaluation with a peak heart rate of 100 beats per minute (72%predicted maximal heart rate) and a peak blood pressure of 182/100 mmHg. The baseline ECG demonstrated normal sinus rhythm; nonspecific ST/T wave abnormality. The peak pharmacologic ECG demonstrated with continued nonspecific ST/T wave abnormality. There was a rare PVC during recovery. There was no complaint of chest discomfort during pharmacologic infusion or recovery. The examination was discontinued secondary to completion of protocol. Impression: 1. Pharmacologic (Regadenoson) evaluation 2. Peak pharmacologic ECG with continued nonspecific ST/T wave abnormality. 3. There was a rare PVC during recovery. 4. Nuclear images pending Myocardial perfusion imaging study: Technique: The patient was injected with 13.8 millicuries of technetium 99m Cardiolite and subsequently rest SPECT Cardiolite nuclear imaging was obtained in the horizontal long, vertical long, and short axis views. The patient underwent pharmacologic (Regadenoson) evaluation with a peak heart rate of 100 beats per minute (72% percent predicted maximal heart rate) and a peak blood pressure of 182/100 mmHg. The patient was injected with 44.1 millicuries of technetium 99m Cardiolite and subsequently stress SPECT Cardiolite nuclear imaging was obtained in the horizontal long, vertical long, and short axis views. A gated Cardiolite study at peak stress was obtained. Interpretation: Rest and stress SPECT Cardiolite nuclear imaging status post realignment, normalization, and attenuation correction demonstrate the appearance of body motion during image acquisition and otherwise relative uniform tracer uptake and myocardial perfusion appearing within normal limits. There is end systolic thickening and brightening. The gated Cardiolite study demonstrates myocardial thickening and inward wall motion. The reported LVEF is 46%. Impression: 1. Rest and stress SPECT Cardiolite nuclear imaging demonstrate relative uniform tracer uptake and myocardial perfusion appearing within normal limits. 2. The gated Cardiolite study reports an LVEF of 46%. This note was generated with [employer] software. It may contain incorrect words, spelling, and punctuation that were not noted in checking the note before signing.
[2021-08-04 10:33] VITALS: BP 158/79; PULSE 69
[2021-08-04] MEDS: hydrALAZINE 25 MG Tablet PO (10:33)
[2021-08-04] MEDS: amLODIPine 10 MG Tablet PO (10:33)
--- NOTE | 2021-08-04 10:57 | DS.PCM_ITS ---
Providers Date of Admission: 08/02/21 Primary Care Physician: Dr. Juliana Jauregui DO Consultations 08/02/21 04:48 Consult: Cardiology Routine Consulting Provider: Garfield Gaston Reason for Consult: Elevated troponin EMERGENT Consult: No MD Notified: Yes Date Notified: 08/02/21 Time Notified: 05:22 Method of Notification: MD aware prior to transfr Reason For Visit: elevated troponin Diagnosis Discharge Diagnosis (1) Upper GI bleed: Status: Chronic Code(s): K92.2 - Gastrointestinal hemorrhage, unspecified (2) Presence of IVC filter: Status: Chronic Code(s): Z95.828 - Presence of other vascular implants and grafts (3) CKD (chronic kidney disease), stage IV: Status: Chronic Code(s): N18.4 - Chronic kidney disease, stage 4 (severe) (4) Ventricular tachycardia: Status: Resolved Code(s): I47.2 - Ventricular tachycardia (5) PAD (peripheral artery disease): Status: Chronic Code(s): I73.9 - Peripheral vascular disease, unspecified (6) Elevated troponin: Status: Acute Code(s): R77.8 - Other specified abnormalities of plasma proteins Medications at Discharge Home Medications metoprolol succinate 50 mg PO DAILY 10/31/18 szgaridi-nbp-WT-lycopen-lutein 1 tab PO DAILY 10/31/18 iumjb-4v-bpe-epa-fish oil-D3 1 ea PO DAILY 10/31/18 losartan 100 mg PO DAILY 08/02/21 pantoprazole 40 mg PO DAILY 08/02/21 aspirin 325 mg PO DAILY 08/03/21 amlodipine 10 mg PO DAILY #30 tab 08/04/21 atorvastatin 40 mg PO DAILY #30 tab 08/04/21 hydralazine 25 mg PO BID #60 tab 08/04/21 Weight / BMI Weight Weight: 81 kg Body Mass Index (BMI) 24.9 ABG / Lab / Microbiology Data Result Diagrams: 08/04/21 04:58 08/04/21 04:58 Laboratory: Laboratory Results - last 24 hr 08/04/21 04:58: WBC 7.5, RBC 3.85 L, Hgb 11.3 L, Hct 34.5 L, MCV 89.6, MCH 29.4, MCHC 32.8, RDW Std Deviation 44.1 H, RDW Coeff of Skylar 13.5, Plt Count 243, MPV 11.0, Immature Gran % (Auto) 0.400, Neut % (Auto) 63.1, Lymph % (Auto) 18.2 L, [place] % (Auto) 10.2 H, Eos % (Auto) 7.0 H, Baso % (Auto) 1.1 H, Absolute Neuts (auto) 4.8, Absolute Lymphs (auto) 1.37, Nucleated RBC % 0 08/04/21 04:58: Sodium 145, Potassium 4.0, Chloride 115 H, Carbon Dioxide 21.0, Anion Gap 9, BUN 39 H, Creatinine 2.87 H, Estim Creat Clear Calc 20.77, Est GFR (MDRD) Af Amer 27 L, Est GFR (MDRD) Non-Af 23 L, BUN/Creatinine Ratio 13.6, Glucose 77, Calcium 8.5, Total Bilirubin 0.40, AST 20, ALT 17, Alkaline Phosphatase 41 L, Total Protein 5.9 L, Albumin 2.5 L, Globulin 3.4, Albumin/Globulin Ratio 0.7 L Meaningful Use Info Meaningful Use Diagnoses (Choose all that apply): None applicable Discharge Plan Admission Admit Date/Time: 08/02/21 03:47 Attending Provider: Gato Sewell Primary Care Provider: Juliana Jauregui Consulting Providers: Garfield Gaston Discharge Orders/Prescriptions Prescriptions: New amlodipine 10 mg Tablet 10 mg PO DAILY Qty: 30 RF: 0 atorvastatin 40 mg tablet 40 mg PO DAILY Qty: 30 RF: 0 hydralazine 25 mg Tablet 25 mg PO BID Qty: 60 RF: 0 Continued metoprolol succinate 50 MG tablet extended release 24 hr 50 mg PO DAILY RF: 0 uwwbzppj-xjj-YH-lycopen-lutein 1 EACH tablet 1 tab PO DAILY RF: 0 nngxy-5u-omw-epa-fish oil-D3 1 EACH capsule,delayed release(DR/EC) 1 ea PO DAILY RF: 0 losartan 100 mg tablet 100 mg PO DAILY RF: 0 pantoprazole 40 MG tablet,delayed release (DR/EC) 40 mg PO DAILY RF: 0 aspirin 325 mg Capsule 325 mg PO DAILY RF: 0 Discontinued amlodipine 5 MG tablet 5 mg PO DAILY RF: 0 Referrals / Follow Up: Juliana Jauregui DO [Primary Care Provider] - In 1 Week Juancarlos Trujillo MD [STAFF PHYSICIAN] - Within 1 Month Disposition Disposition (needs filled in before D/C Order can be placed): Home, Self Care Charges/Coding Visit Charges OBSV E&M: 66925 Observation care discharge
--- NOTE | 2021-08-04 11:02 | PCM.DC.SUM ---
Providers Date of Admission: 08/02/21 Primary Care Physician: Dr. Juliana Jauregui, Consultations 08/02/21 04:48 Consult: Cardiology Routine Consulting Provider: Garfield Gaston Reason for Consult: Elevated troponin EMERGENT Consult: No MD Notified: Yes Date Notified: 08/02/21 Time Notified: 05:22 Method of Notification: MD aware prior to transfr Reason For Visit: elevated troponin Diagnosis Discharge Diagnosis (1) Upper GI bleed: Status: Chronic Code(s): K92.2 - Gastrointestinal hemorrhage, unspecified (2) Presence of IVC filter: Status: Chronic Code(s): Z95.828 - Presence of other vascular implants and grafts (3) CKD (chronic kidney disease), stage IV: Status: Chronic Code(s): N18.4 - Chronic kidney disease, stage 4 (severe) (4) Ventricular tachycardia: Status: Resolved Code(s): I47.2 - Ventricular tachycardia (5) PAD (peripheral artery disease): Status: Chronic Code(s): I73.9 - Peripheral vascular disease, unspecified (6) Elevated troponin: Status: Acute Code(s): R77.8 - Other specified abnormalities of plasma proteins Medications at Discharge Home Medications metoprolol succinate 50 mg PO DAILY 10/31/18 ypqaiaij-vao-UG-lycopen-lutein 1 tab PO DAILY 10/31/18 qmxri-2h-rqi-epa-fish oil-D3 1 ea PO DAILY 10/31/18 losartan 100 mg PO DAILY 08/02/21 pantoprazole 40 mg PO DAILY 08/02/21 aspirin 325 mg PO DAILY 08/03/21 amlodipine 10 mg PO DAILY #30 tab 08/04/21 atorvastatin 40 mg PO DAILY #30 tab 08/04/21 hydralazine 25 mg PO BID #60 tab 08/04/21 Hospital Course Operations None Summary of Care Provided Minutes Spent on Discharge: 31 Hospital Course: Patient is an 81-year-old gentleman with chronic kidney disease stage IV who was taken to [facility] for evaluation of possible CVA. Stroke was ruled out he was however found to have elevated troponin subsequently sent to the [facility] 1. Elevated troponin Secondary to demand ischemia from hypertensive emergency in the setting of renal insufficiency. Patient was seen in consultation by cardiology and underwent a nuclear stress test which was negative for stress-induced ischemia 2. Hypertensive urgency ? Adjusted patient home medications 3. Chronic kidney disease stage IV ? Patient to follow-up with PCP and primary nephrology for subsequent care 4. History of previous DVT status post IVC filter Physical Exam Narrative GENERAL: cooperative NECK; supple, normal thyroid, RESPIRATORY: Diminished to auscultation CARDIOVASCULAR: Regular S1 S2, GI: soft, normoactive bowel sounds, : No Renal angle tenderness; EXTREMITIES: No edema, no clubbing, MUSCULOSKELETAL: no muscle waisting SKIN: No Rash PSYCH; Flat affect Weight / BMI Weight Weight: 81 kg Body Mass Index (BMI) 24.9 ABG / Lab / Microbiology Data Result Diagrams: 08/04/21 04:58 08/04/21 04:58 Laboratory: Laboratory Results - last 24 hr 08/04/21 04:58: WBC 7.5, RBC 3.85 L, Hgb 11.3 L, Hct 34.5 L, MCV 89.6, MCH 29.4, MCHC 32.8, RDW Std Deviation 44.1 H, RDW Coeff of Skylar 13.5, Plt Count 243, MPV 11.0, Immature Gran % (Auto) 0.400, Neut % (Auto) 63.1, Lymph % (Auto) 18.2 L, [place] % (Auto) 10.2 H, Eos % (Auto) 7.0 H, Baso % (Auto) 1.1 H, Absolute Neuts (auto) 4.8, Absolute Lymphs (auto) 1.37, Nucleated RBC % 0 08/04/21 04:58: Sodium 145, Potassium 4.0, Chloride 115 H, Carbon Dioxide 21.0, Anion Gap 9, BUN 39 H, Creatinine 2.87 H, Estim Creat Clear Calc 20.77, Est GFR (MDRD) Af Amer 27 L, Est GFR (MDRD) Non-Af 23 L, BUN/Creatinine Ratio 13.6, Glucose 77, Calcium 8.5, Total Bilirubin 0.40, AST 20, ALT 17, Alkaline Phosphatase 41 L, Total Protein 5.9 L, Albumin 2.5 L, Globulin 3.4, Albumin/Globulin Ratio 0.7 L D/C Instructions Discharge Diet: No restrictions Discharge Activity: Return to Normal Activity Call your doctor if you observe: Fever of 101 or Higher, Shortness of breath, Fainting spells and Chest pain Meaningful Use Info Meaningful Use Diagnoses (Choose all that apply): None applicable Discharge Plan Admission Admit Date/Time: 08/02/21 03:47 Attending Provider: Gato Sewell Primary Care Provider: Juliana Jauregui Consulting Providers: Garfield Gaston Discharge Orders/Prescriptions Prescriptions: New amlodipine 10 mg Tablet 10 mg PO DAILY Qty: 30 RF: 0 atorvastatin 40 mg tablet 40 mg PO DAILY Qty: 30 RF: 0 hydralazine 25 mg Tablet 25 mg PO BID Qty: 60 RF: 0 Continued metoprolol succinate 50 MG tablet extended release 24 hr 50 mg PO DAILY RF: 0 zltndsai-xxx-BS-lycopen-lutein 1 EACH tablet 1 tab PO DAILY RF: 0 qmrsx-4m-uvy-epa-fish oil-D3 1 EACH capsule,delayed release(DR/EC) 1 ea PO DAILY RF: 0 losartan 100 mg tablet 100 mg PO DAILY RF: 0 pantoprazole 40 MG tablet,delayed release (DR/EC) 40 mg PO DAILY RF: 0 aspirin 325 mg Capsule 325 mg PO DAILY RF: 0 Discontinued amlodipine 5 MG tablet 5 mg PO DAILY RF: 0 Referrals / Follow Up: Juliana Jauregui DO [Primary Care Provider] - In 1 Week Juancarlos Trujillo MD [STAFF PHYSICIAN] - Within 1 Month Disposition Disposition (needs filled in before D/C Order can be placed): Home, Self Care Charges/Coding Visit Charges OBSV E&M: 10534 Observation care discharge
--- NOTE | 2021-08-04 11:38 | PHA.DC.MC ---
Pharmacy Service has performed discharge medication reconciliation and counseling for this patient. 1. ATORVASTATIN 40MG PO DAILY 2. HYDRALAZINE 25MG PO BID The patient's discharge medication list was reviewed for discrepancies and discrepancies were resolved. Home Medications metoprolol succinate 50 mg PO DAILY 10/31/18 bguqbijy-oxu-BK-lycopen-lutein 1 tab PO DAILY 10/31/18 dqlri-5l-lbb-epa-fish oil-D3 1 ea PO DAILY 10/31/18 losartan 100 mg PO DAILY 08/02/21 pantoprazole 40 mg PO DAILY 08/02/21 aspirin 325 mg PO DAILY 08/03/21 amlodipine 10 mg PO DAILY #30 tab 08/04/21 atorvastatin 40 mg PO DAILY #30 tab 08/04/21 hydralazine 25 mg PO BID #60 tab 08/04/21 The patient was counseled on the following discharge medications and changes in medications for homegoing were reviewed. The Reason for Use, instructions for use, and potential side effects were reviewed for all new medications. The patient's questions regarding all of their medications were answered. The patient was able to verbally demonstrate an understanding of their discharge medications.
== END 2021-08-04 11:01 | disposition home or self-care (01) ==
LOC: ED 03:52 → PCU 04:00
PROVIDERS: Internal Medicine; Internal Medicine Interventional Cardiology; Admitting Provider Hospitalist; Emergency Provider Emergency Medicine; PCP Internal Medicine; Visit Provider Internal Medicine
DX: I16.1 Hypertensive emergency (principal); N18.4 Chronic kidney disease, stage 4 (severe); I73.9 Peripheral vascular disease, unspecified; I47.2 Ventricular tachycardia; I24.8 Other forms of acute ischemic heart disease; I12.9 Hypertensive chronic kidney disease with stage 1 through stage 4 chronic kidney disease, or unspecified chronic kidney disease; Z86.718 Personal history of other venous thrombosis and embolism; Z87.891 Personal history of nicotine dependence; Z95.828 Presence of other vascular implants and grafts; R77.8 Other specified abnormalities of plasma proteins; K92.2 Gastrointestinal hemorrhage, unspecified; Z79.899 Other long term (current) drug therapy
CPT/HCPCS: 36415; 78452; 80048; 80053; 80061; 83735; 84484; 85025; 93005; 93017; 96361; 96374; 97110; 97162; 97165; 97530; 99218; 99285; A9500; J7030; A4216; G0378; J2785